=== PATIENT | male | born 1935 | race African-American/Black ===

== ENCOUNTER 2018-06-21 15:12 | Inpatient (IN) | payer MEDICARE, OTHER ==
[~2018-06-21] VITALS: Ht 182.9 cm; Wt 110.7 kg
--- NOTE | 2018-06-21 15:36 | PHYS DOC ---
Past Medical History Past Medical History: Hypertension Additional Past Medical Histor: hyperlipidemia, DVT (BRUNO LINDSEY APRN) Adult General HPI HPI 82-year-old male presents to ER via EMS for complaints of right side chest pressure. Patient states around 12 PM while working in his garden he developed dizziness when he stood up and had right-sided chest pressure. Patient states he went inside and rested and with any exertion he would get increased right sided chest pressure. Patient reports he had been feeling okay all morning and then started having intermittent dizziness episodes with position changes and walking. Patient states he took 2 Tylenol 325 mg with onset of chest pressure. Patient reports he fell some shortness of air denies cough. Patient reports appetite has been normal limits denies any nausea or vomiting. Patient denies fever or urinary sxs. Pt reports rt LE chronic swelling- no acute changes. She reports pain he is experiencing and dizziness is similar to when he had a DVT in the past. Patient denies recent illness or travel. Pt is former smoker quit in the 80s. 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 (BRUNO LINDSEY APRN) Review of Systems Review of Systems Constitutional: Denies fever or chills [] Eyes: Denies change in visual acuity, redness, or eye pain [] HENT: Denies nasal congestion or sore throat [] Respiratory: Denies cough. Reports SOA w/increased chest tightness Cardiovascular: Rt side chest tightness GI: Denies abdominal pain, nausea, vomiting, bloody stools or diarrhea [] : Denies dysuria or hematuria [] Musculoskeletal: Denies back pain or joint pain [] Integument: Denies rash or skin lesions [] Neurologic: Denies headache, focal weakness or sensory changes. Reports intermittent dizziness Endocrine: Denies polyuria or polydipsia [] All other systems were reviewed and found to be within normal limits, except as documented in this note. (BRUNO LINDSEY APRN) Current Medications Current Medications Current Medications Medications (Trade) Dose Ordered Sig/Eugenio Start Time Stop Time Status Last Admin Dose Admin Aspirin (Children'S Aspirin) 324 mg 1X ONCE 06/21/18 16:00 06/21/18 16:25 DC 06/21/18 16:02 324 MG (MASOUD ROBLERO MD) Physical Exam Physical Exam Constitutional: Well developed, well nourished, no acute distress, non-toxic appearance. Clear speech HENT: Normocephalic, atraumatic, bilateral external ears normal, oropharynx moist, no oral exudates, nose normal. [] Eyes: PERRLA, conjunctiva normal, no discharge. [] Neck: Normal range of motion, no tenderness, supple, no stridor. [] Cardiovascular:Heart rate regular rhythm, no murmur [] Lungs & Thorax: Bilateral breath sounds clear to auscultation [] Abdomen: Bowel sounds normal, soft, no tenderness, no masses, no pulsatile rosa s. [] Skin: Warm, dry, no erythema, no rash. [] Back: No tenderness, no CVA tenderness. [] Extremities: No tenderness, no cyanosis, no clubbing, ROM intact, no edema. [] Neurologic: Alert and oriented X 3, normal motor function, normal sensory function, no focal deficits noted. [] Psychologic: Affect normal, judgement normal, mood normal. [] (REFFITT,BRUNO Guerrero APRN) Current Patient Data Vital Signs Vital Signs Date Time Temp Pulse Resp B/P (MAP) Pulse Ox O2 Delivery O2 Flow Rate FiO2 06/21/18 16:21 80 19 132/72 (92) 99 Nasal Cannula 2.0 06/21/18 15:25 98.1 98.1 (MASOUD ROBLERO MD) Lab Values Laboratory Tests Test 06/21/18 15:40 White Blood Count 7.9 x10^3/uL (4.0-11.0) Red Blood Count 3.95 x10^6/uL (4.30-5.70) L Hemoglobin 12.3 g/dL (13.0-17.5) L Hematocrit 36.1 % (39.0-53.0) L Mean Corpuscular Volume 91 fL (79-100) Mean Corpuscular Hemoglobin 31 pg (25-35) Mean Corpuscular Hemoglobin Concent 34 g/dL (31-37) Red Cell Distribution Width 13.8 % (11.5-14.5) Platelet Count 153 x10^3/uL (140-400) Neutrophils (%) (Auto) 76 % (31-73) H Lymphocytes (%) (Auto) 13 % (24-48) L Monocytes (%) (Auto) 8 % (0-9) Eosinophils (%) (Auto) 3 % (0-3) Basophils (%) (Auto) 0 % (0-3) Neutrophils # (Auto) 6.0 x10^3uL (1.8-7.7) Lymphocytes # (Auto) 1.0 x10^3/uL (1.0-4.8) Monocytes # (Auto) 0.6 x10^3/uL (0.0-1.1) Eosinophils # (Auto) 0.2 x10^3/uL (0.0-0.7) Basophils # (Auto) 0.0 x10^3/uL (0.0-0.2) D-Dimer (Mindy) 19.67 ug/mlFEU (0.00-0.50) H Sodium Level 142 mmol/L (136-145) Potassium Level 5.0 mmol/L (3.5-5.1) Chloride Level 105 mmol/L (98-107) Carbon Dioxide Level 24 mmol/L (21-32) Anion Gap 13 (6-14) Blood Urea Nitrogen 27 mg/dL (8-26) H Creatinine 2.0 mg/dL (0.7-1.3) H Estimated GFR (Cockcroft-Gault) 39.1 BUN/Creatinine Ratio 14 (6-20) Glucose Level 206 mg/dL (70-99) H Calcium Level 9.0 mg/dL (8.5-10.1) Magnesium Level 1.7 mg/dL (1.8-2.4) L Total Bilirubin 0.7 mg/dL (0.2-1.0) Aspartate Amino Transferase (AST) 29 U/L (15-37) Alanine Aminotransferase (ALT) 36 U/L (16-63) Alkaline Phosphatase 47 U/L (46-116) Troponin I Quantitative 0.156 ng/mL (0.000-0.055) HQ-Gvi-F-Type Natriuretic Peptide 77 pg/mL (0-449) Total Protein 6.6 g/dL (6.4-8.2) Albumin 3.5 g/dL (3.4-5.0) Albumin/Globulin Ratio 1.1 (1.0-1.7) Thyroid Stimulating Hormone (TSH) 2.365 uIU/mL (0.358-3.74) Laboratory Tests 06/21/18 15:40 Laboratory Tests 06/21/18 15:40 (MASOUD ROBLERO MD) Lab Values Laboratory Tests Test 06/21/18 15:40 White Blood Count 7.9 x10^3/uL (4.0-11.0) Red Blood Count 3.95 x10^6/uL (4.30-5.70) L Hemoglobin 12.3 g/dL (13.0-17.5) L Hematocrit 36.1 % (39.0-53.0) L Mean Corpuscular Volume 91 fL (79-100) Mean Corpuscular Hemoglobin 31 pg (25-35) Mean Corpuscular Hemoglobin Concent 34 g/dL (31-37) Red Cell Distribution Width 13.8 % (11.5-14.5) Platelet Count 153 x10^3/uL (140-400) Neutrophils (%) (Auto) 76 % (31-73) H Lymphocytes (%) (Auto) 13 % (24-48) L Monocytes (%) (Auto) 8 % (0-9) Eosinophils (%) (Auto) 3 % (0-3) Basophils (%) (Auto) 0 % (0-3) Neutrophils # (Auto) 6.0 x10^3uL (1.8-7.7) Lymphocytes # (Auto) 1.0 x10^3/uL (1.0-4.8) Monocytes # (Auto) 0.6 x10^3/uL (0.0-1.1) Eosinophils # (Auto) 0.2 x10^3/uL (0.0-0.7) Basophils # (Auto) 0.0 x10^3/uL (0.0-0.2) D-Dimer (Mindy) 19.67 ug/mlFEU (0.00-0.50) H Sodium Level 142 mmol/L (136-145) Potassium Level 5.0 mmol/L (3.5-5.1) Chloride Level 105 mmol/L (98-107) Carbon Dioxide Level 24 mmol/L (21-32) Anion Gap 13 (6-14) Blood Urea Nitrogen 27 mg/dL (8-26) H Creatinine 2.0 mg/dL (0.7-1.3) H Estimated GFR (Cockcroft-Gault) 39.1 BUN/Creatinine Ratio 14 (6-20) Glucose Level 206 mg/dL (70-99) H Calcium Level 9.0 mg/dL (8.5-10.1) Magnesium Level 1.7 mg/dL (1.8-2.4) L Total Bilirubin 0.7 mg/dL (0.2-1.0) Aspartate Amino Transferase (AST) 29 U/L (15-37) Alanine Aminotransferase (ALT) 36 U/L (16-63) Alkaline Phosphatase 47 U/L (46-116) Troponin I Quantitative 0.156 ng/mL (0.000-0.055) YN-Ewu-E-Type Natriuretic Peptide 77 pg/mL (0-449) Total Protein 6.6 g/dL (6.4-8.2) Albumin 3.5 g/dL (3.4-5.0) Albumin/Globulin Ratio 1.1 (1.0-1.7) Thyroid Stimulating Hormone (TSH) 2.365 uIU/mL (0.358-3.74) Laboratory Tests 06/21/18 15:40 Laboratory Tests 06/21/18 15:40 (BRUNO LINDSEY APRN) EKG EKG EKG obtained 06/21/18 at [address] Roblero- call placed to cardiology as she had concerns for block. No STEMI rate 85. (BRUNO LINDSEY APRN) Radiology/Procedures Radiology/Procedures PROCEDURE: CHEST AP ONLY Single view chest dated 06/21/2018: Comparison made to 12/02/2005. Clinical Indication: Chest tightness.. Findings: Single upright portable exam of the chest was performed. Heart size and mediastinal contours are within normal limits. There is a vague nodular density at the suprahilar region on the left appears more prominent from the 2006 study. Lungs are otherwise clear. No pleural effusion or pneumothorax. Impression:: 1. No acute radiographic abnormality. 2. Vague nodular density at the suprahilar region on the left appears somewhat more prominent from prior exam. This could be related to artifact or a developing lung nodule. Suggest short-term follow-up PA and lateral exam to ensure stability/resolution Electronically signed by: Jong Garcia MD (06/21/2018 4:40 PM) [facility] DICTATED and SIGNED BY: JONG GARCIA MD DATE: 06/21/18 1640 (BRUNO LINDSEY APRN) Course & Med Decision Making Course & Med Decision Making Pertinent Labs and Imaging studies reviewed. (See chart for details) EKG was obtained and Dr. Roblero had concerns for possible block- cardiology called and she spoke with LALY Kraft with Dr. Gambino who is coming to ER to view EKG. 1605: LALY Kraft cardiology in with pt. Orthostatics were obtained supine 140/76 HR 81 sitting 135/67 HR 96 standing 140/76 HR 90. Pt was evaluated in the ER for complaints of right side chest tightness and intermittent dizziness. Patient had labs, EKG, and chest x-ray obtained while in the ER- DDimer pending. Patient was given 324 mg aspirin. Patient's troponin was elevated at 0.156 and renal function 27/2.0- no prior results in patient's records to compare to. Pt will be admitted to hospitalist services for further monitoring and have serial cardiac enzymes obtained. Consult will be placed for cardiology with admit orders. Patient has remained stable while in the ER- denied any CP/SOA and VS were stable. (BRUNO LINDSEY APRN) Course & Med Decision Making This patient was seen by an MAIA. I did not see or treat the patient unless otherwise specified. (MASOUD ROBLERO MD) Dragon Disclaimer Dragon Disclaimer This electronic medical record was generated, in whole or in part, using a voice recognition dictation system. (BRUNO LINDSEY APRN) Departure Departure Impression: Primary Impression: Chest pain Additional Impressions: Dizziness Elevated troponin Disposition: ADMITTED INPATIENT Condition: STABLE Referrals: UNKNOWN PCP NAME (PCP) Problem Qualifiers BRUNO LINDSEY APRN June 21, 2018 15:36 MASOUD ROBLERO MD June 22, 2018 14:01
--- NOTE | 2018-06-21 15:43 | EKG ---
[facility] [address] [place] [id number] Test Date: 2018-06-21 Test Time: 15:36:33 Pat Name: RAMESH PARRY Department: Room: Gender: M Animal Care Attendant: : 1935 Requested By: BRUNO LINDSEY Order Number: [id number] Reading MD: Gustavo Gambino MD Measurements Intervals [place] Rate: 85 P: MO: QRS: 2 QRSD: 76 T: 12 QT: 388 QTc: 462 Interpretive Statements SR 1st degree avb Electronically Signed On 06-21-2018 18:18:07 CDT by Gustavo Gambino MD
[2018-06-21 15:52] LABS: BASO % 0 % (0-3); EOS # 0.2 x10^3/uL (0.0-0.7); EOS % 3 % (0-3); HEMATOCRIT 36.1 % (39.0-53.0); HEMOGLOBIN 12.3 g/dL (13.0-17.5); LYMPH % 13 % (24-48); MEAN CORPUSCULAR HEMOGLOBIN 31 pg (25-35); MEAN CORPUSCULAR HGB CONC 34 g/dL (31-37); MEAN CORPUSCULAR VOLUME 91 fL (79-100); MONO # 0.6 x10^3/uL (0.0-1.1); MONO % 8 % (0-9); NEUT % 76 % (31-73); PLATELET COUNT 153 x10^3/uL (140-400); RED BLOOD COUNT 3.95 x10^6/uL (4.30-5.70); RED CELL DISTRIBUTION WIDTH 13.8 % (11.5-14.5); WHITE BLOOD COUNT 7.9 x10^3/uL (4.0-11.0)
[2018-06-21] MEDS ORDERED: ASPIRIN CHEWABLE 81 MG TABLET. PO ONE (16:00)
[2018-06-21 16:16] LABS: GFR 39.1
[2018-06-21 16:22] LABS: ALBUMIN 3.5 g/dL (3.4-5.0); ALBUMIN/GLOBULIN RATIO 1.1 (1.0-1.7); MAGNESIUM 1.7 mg/dL (1.8-2.4); TOTAL BILIRUBIN 0.7 mg/dL (0.2-1.0); TOTAL PROTEIN 6.6 g/dL (6.4-8.2)
--- NOTE | 2018-06-21 16:43 | RAD ---
Single view chest dated 06/21/2018: Comparison made to 12/02/2005. Clinical Indication: Chest tightness.. Findings: Single upright portable exam of the chest was performed. Heart size and mediastinal contours are within normal limits. There is a vague nodular density at the suprahilar region on the left appears more prominent from the 2006 study. Lungs are otherwise clear. No pleural effusion or pneumothorax. Impression:: 1. No acute radiographic abnormality. 2. Vague nodular density at the suprahilar region on the left appears somewhat more prominent from prior exam. This could be related to artifact or a developing lung nodule. Suggest short-term follow-up PA and lateral exam to ensure stability/resolution Electronically signed by: Jong Garcia MD (06/21/2018 4:40 PM) [facility]
[2018-06-21] MEDS ORDERED: MAGNESIUM OXIDE 400 MG TABLET PO ONE (17:00)
[2018-06-21] MEDS ORDERED: LABETALOL 20 MG/4 ML DISP.SYRIN. IVP PRN (17:00)
--- NOTE | 2018-06-21 17:03 | PDOC2 ---
JOSEPH VILLALPANDO [employer] 06/21/18 1703: CARDIAC CONSULT DATE OF CONSULT Date of Consult DATE: 06/21/18 TIME: 16:43 REASON FOR CONSULT Reason for Consult: Chest pain REFERRING PHYSICIAN Referring Physician: Jose SOURCE Source: Chart review, Patient HISTORY OF PRESENT ILLNESS HISTORY OF PRESENT ILLNESS This is a pleasant 82 yo male admitted for complains of chest pain and shortness of breath. Reports that in the last 2 weeks he has been progressively getting more SOA. He went to his PCP yesterday and told him that it must be worsening allergies with his underlying COPD as well. He has been noted that his SOA has increased significantly affecting his activity tolerance. This morning he has right chest pressure for about 1 hr and 15 min and actually took tylenol and finally it went away. He did tried to walk during that time and felt diaphoretic. No dizziness, palpitations, nausea. Denies any past CAD, long distance travel but did have DVT to his RLE 2-3 yrs ago. No hx of arrhythmias. He lives with his spouse and has been complaint with his medications. His last stress test was remote. I was called by ED due to CP and also possible heart block which at this point it is first degree AV block and no blocks or pauses per telemetry and pt has no frequent dizziness or recent syncopal spells. At the time he was diaphoretic he did not check his BP nor his BG as he takes insulin. PAST MEDICAL HISTORY Cardiovascular: HTN, Hyperlipidemia Pulmonary: COPD, Other (BRENDA with CPAP) CENTRAL NERVOUS SYSTEM: Periperal neuropathy GI: GERD Heme/Onc: Other (DVT to LE 2-3 yrs ago) Hepatobiliary: No pertinent hx Psych: No pertinent hx Musculoskeletal: Osteoarthritis Rheumatologic: Gout Infectious disease: No pertinent hx ENT: Allergic Rhinitis, Other (cataract) Renal/: Chronic renal insuff, Benign prostatic enlarg. Endocrine: Diabetes (2 insulin dependent) Dermatology: No pertinent hx PAST SURGICAL HISTORY Past Surgical History: No pertinent history FAMILY HISTORY Family History: Diabetes SOCIAL HISTORY Smoke: Quit (remotely) ALCOHOL: none Drugs: None Lives: with Family CURRENT MEDICATIONS CURRENT MEDICATIONS Current Medications Medications (Trade) Dose Ordered Sig/Eugenio Route PRN Reason Start Time Stop Time Status Last Admin Dose Admin Aspirin (Children'S Aspirin) 324 mg 1X ONCE PO 06/21/18 16:00 06/21/18 16:25 DC 06/21/18 16:02 ALLERGIES ALLERGIES: Coded Allergies: rosiglitazone (Verified Allergy, Mild, Unknown, 06/21/18) ROS Review of System 14 point ROS evaluated with pertinent positives noted per HPI PHYSICAL EXAM General: Alert, Oriented X3, Cooperative, No acute distress HEENT: Atraumatic, Mucous membr. moist/pink Lungs: Clear to auscultation, Normal air movement Heart: Regular rate (SR with first degree AV block. ), Other (2/6 systolic murmur to LLS border) Abdomen: Soft, No tenderness Extremities: No cyanosis, Other (2+ bilateral LE pitting edema) Skin: No breakdown, No significant lesion Neuro: Normal speech, Sensation intact Psych/Mental Status: Mental status NL, Mood NL MUSCULOSKELETAL: Osteoarthritic changes both hands VITALS VITALS Vital Signs Date Time Temp Pulse Resp B/P (MAP) Pulse Ox O2 Delivery O2 Flow Rate FiO2 06/21/18 15:25 98.1 90 18 140/90 (107) 98 Nasal Cannula 2.0 98.1 LABS Lab: Laboratory Tests Test 06/21/18 15:40 White Blood Count 7.9 x10^3/uL (4.0-11.0) Red Blood Count 3.95 x10^6/uL (4.30-5.70) Hemoglobin 12.3 g/dL (13.0-17.5) Hematocrit 36.1 % (39.0-53.0) Mean Corpuscular Volume 91 fL (79-100) Mean Corpuscular Hemoglobin 31 pg (25-35) Mean Corpuscular Hemoglobin Concent 34 g/dL (31-37) Red Cell Distribution Width 13.8 % (11.5-14.5) Platelet Count 153 x10^3/uL (140-400) Neutrophils (%) (Auto) 76 % (31-73) Lymphocytes (%) (Auto) 13 % (24-48) Monocytes (%) (Auto) 8 % (0-9) Eosinophils (%) (Auto) 3 % (0-3) Basophils (%) (Auto) 0 % (0-3) Neutrophils # (Auto) 6.0 x10^3uL (1.8-7.7) Lymphocytes # (Auto) 1.0 x10^3/uL (1.0-4.8) Monocytes # (Auto) 0.6 x10^3/uL (0.0-1.1) Eosinophils # (Auto) 0.2 x10^3/uL (0.0-0.7) Basophils # (Auto) 0.0 x10^3/uL (0.0-0.2) Sodium Level 142 mmol/L (136-145) Potassium Level 5.0 mmol/L (3.5-5.1) Chloride Level 105 mmol/L (98-107) Carbon Dioxide Level 24 mmol/L (21-32) Anion Gap 13 (6-14) Blood Urea Nitrogen 27 mg/dL (8-26) Creatinine 2.0 mg/dL (0.7-1.3) Estimated GFR (Cockcroft-Gault) 39.1 BUN/Creatinine Ratio 14 (6-20) Glucose Level 206 mg/dL (70-99) Calcium Level 9.0 mg/dL (8.5-10.1) Magnesium Level 1.7 mg/dL (1.8-2.4) Total Bilirubin 0.7 mg/dL (0.2-1.0) Aspartate Amino Transf (AST/SGOT) 29 U/L (15-37) Alanine Aminotransferase (ALT/SGPT) 36 U/L (16-63) Alkaline Phosphatase 47 U/L (46-116) Troponin I Quantitative 0.156 ng/mL (0.000-0.055) Total Protein 6.6 g/dL (6.4-8.2) Albumin 3.5 g/dL (3.4-5.0) Albumin/Globulin Ratio 1.1 (1.0-1.7) ASSESSMENT/PLAN ASSESSMENT/PLAN 1. NSTEMI: initial trop at 0.156 in the setting of EMERALD, mild anteroseptal changes to EKG otherwise SR with first degree AV block 2. Acute CHF with possible diastolic dysfunction 3. COPD/BRENDA: uses CPAP at home. 4. HTN: controlled 5. DM2: insulin dependent 6. HLP 7. EMERALD on CKD3: by baseline 8. suspect PAD in addition to DPN. Recommendations 1. Lasix. ASA. Lovenox x1. Arterial doppler to bilateral LE 2. TTE, TSH, lipids. 3. Labetolol IV PRN. Hold ACEi/ARB. 4. Ischemic workup pending renal function and pending tests. SHERMAN HUBBARD MD 06/21/18 1818: CARDIAC CONSULT ASSESSMENT/PLAN ASSESSMENT/PLAN Pt. seen and examined. Agree with above COLLECTIONS AND ARCHIVES DIRECTOR note. Plan for further evaluation based on overnight labs and testing thanks JOSEPH VILLALPANDO APRN June 21, 2018 17:03 SHERMAN HUBBARD MD June 21, 2018 18:18
[2018-06-21] MEDS ORDERED: IV NORMAL SALINE 500ML BAG 500 ML IV ONE (18:15)
[2018-06-21 19:15] VITALS: BP 112/66
--- NOTE | 2018-06-21 20:58 | PDOC1 ---
History and Physical Date of Admission Date of Admission DATE: 06/21/18 TIME: 20:50 Source Source: Chart review, Patient History of Present Illness History of Present Illness Mr. Dietz, is a 82-year-old male admit with sudden on set of right side chest pressure. while active, was dizzy, then sudden pressure to right chest that resolved before I saw him in the ER. the exertion seemed to exacerbate the pain. some dyspena, has not been ill, has no cough he felt nausea and sweaty, no vomitning, and it was a pressure sensation to his right chest. he had been seen by CV team, and US LE arteries was being done, hx DVT, PE Past Medical History Cardiovascular: HTN, Hyperlipidemia Pulmonary: COPD, Other (BRENDA with CPAP) CENTRAL NERVOUS SYSTEM: Periperal neuropathy GI: GERD Heme/Onc: Other (DVT to LE 2-3 yrs ago) Hepatobiliary: No pertinent hx Psych: No pertinent hx Musculoskeletal: Osteoarthritis Rheumatologic: Gout Infectious disease: No pertinent hx ENT: Allergic Rhinitis, Other (cataract) Renal/: Chronic renal insuff, Benign prostatic enlarg. Endocrine: Diabetes (2 insulin dependent) Dermatology: No pertinent hx Past Surgical History Past Surgical History: No pertinent history Family History Family History: Diabetes Social History Smoke: No ALCOHOL: none Drugs: None Current Problem List Problem List Problems Medical Problems: (1) Chest pain Status: Acute (2) Dizziness Status: Acute (3) Elevated troponin Status: Acute Current Medications Current Medications Current Medications Aspirin (Children'S Aspirin) 324 mg 1X ONCE PO Last administered on 06/21/18at 16:02; Start 06/21/18 at 16:00; Stop 06/21/18 at 16:25; Status DC Enoxaparin Sodium (Lovenox 100mg Syringe) 100 mg 1X ONCE SQ Last administered on 06/21/18at 17:36; Start 06/21/18 at 17:00; Stop 06/21/18 at 17:07; Status DC Magnesium Oxide (Magnesium Oxide) 800 mg 1X ONCE PO Last administered on 06/21/18at 17:34; Start 06/21/18 at 17:00; Stop 06/21/18 at 17:07; Status DC Labetalol HCl (Normodyne Iv Push) 20 mg PRN Q2HR PRN IVP HYPERTENSION, SEE COMMENTS; Start 06/21/18 at 17:00 Sodium Chloride 500 ml @ 500 mls/hr 1X ONCE IV Last administered on 06/21/18at 18:35; Start 06/21/18 at 18:15; Stop 06/21/18 at 19:14; Status DC Allergies Allergies: Coded Allergies: rosiglitazone (Verified Allergy, Mild, Unknown, 06/21/18) ROS General: No: Chills, Night Sweats, Fatigue, Malaise, Appetite, Other PSYCHOLOGICAL ROS: YES: Sleep disturbances; No: Anxiety, Behavioral Disorder, Concentration difficultie, Decreased rocco meryl, Depression, Disorientation, Hallucinations, Hostility, Irritablity, Memory difficulties, Mood Swings, Obsessive thoughts, Physical abuse, Sexual abuse, Suicidal ideation, Other Eyes: No Blurry vision, No Decreased vision, No Double vision, No Dry eyes, No Excessive tearing, No Eye Pain, No Itchy Eyes, No Loss of vision, No Photophobia, No Scotomata, No Uses contacts, No Uses glasses, No Other HEENT: No: Heacaches, Visual Changes, Hearing change, Nasal congestion, Nasal discharge, Oral lesions, Sinus pain, Sore Throat, Epistaxis, Sneezing, Snoring, Tinnitus, Vertigo, Vocal changes, Other Respiratory: No: Cough, Hemoptysis, Orthopnea, Pleuritic Pain, Shortness of breath, SOB with excertion, Sputum Changes, Stridor, Tachypnea, Wheezing, Other Cardiovascular: yes Chest Pain Gastrointestinal: No Nausea, No Vomiting, No Abdominal Pain, No Diarrhea, No Constipation, No Melena, No Hematochezia, No Other Genitourinary: No Dysuria, No Frequency, No Incontinence, No Hematuria, No Retention, No Discharge, No Urgency, No Pain, No Flank Pain, No Other, No , No , No , No , No , No , No Musculoskeletal: Yes Joint Stiffness; No Gait Disturbance, No Joint Pain, No Joint Swelling, No Muscle Pain, No Muscular Weakness, No Pain In:, No Swelling In:, No Other Neurological: No Behavorial Changes, No Bowel/Bladder ControlChng, No Con fusion, No Dizziness, No Gait Disturbance, No Headaches, No Impaired Coord/balance, No Memory Loss, No Numbness/Tingling, No Seizures, No Speech Problems, No Tremors, No Visual Changes, No Weakness, No Other Skin: Yes Dry Skin Physical Exam General: Alert, Oriented X3, Cooperative, No acute distress HEENT: Atraumatic, PERRLA Lungs: Clear to auscultation Heart: S1S2, no murmurs Abdomen: Normal bowel sounds, Soft Extremities: No clubbing, No cyanosis, No edema, Normal pulses Neuro: Normal speech, Sensation intact, Cranial nerves 3-12 NL Psych/Mental Status: Mental status NL Vitals Vitals Vital Signs Date Time Temp Pulse Resp B/P (MAP) Pulse Ox O2 Delivery O2 Flow Rate FiO2 06/21/18 19:15 97.6 77 18 112/66 (81) 95 Room Air 97.6 06/21/18 18:21 2.0 Labs Labs Laboratory Tests Test 06/21/18 15:40 06/21/18 20:20 White Blood Count 7.9 x10^3/uL (4.0-11.0) Red Blood Count 3.95 x10^6/uL (4.30-5.70) Hemoglobin 12.3 g/dL (13.0-17.5) Hematocrit 36.1 % (39.0-53.0) Mean Corpuscular Volume 91 fL (79-100) Mean Corpuscular Hemoglobin 31 pg (25-35) Mean Corpuscular Hemoglobin Concent 34 g/dL (31-37) Red Cell Distribution Width 13.8 % (11.5-14.5) Platelet Count 153 x10^3/uL (140-400) Neutrophils (%) (Auto) 76 % (31-73) Lymphocytes (%) (Auto) 13 % (24-48) Monocytes (%) (Auto) 8 % (0-9) Eosinophils (%) (Auto) 3 % (0-3) Basophils (%) (Auto) 0 % (0-3) Neutrophils # (Auto) 6.0 x10^3uL (1.8-7.7) Lymphocytes # (Auto) 1.0 x10^3/uL (1.0-4.8) Monocytes # (Auto) 0.6 x10^3/uL (0.0-1.1) Eosinophils # (Auto) 0.2 x10^3/uL (0.0-0.7) Basophils # (Auto) 0.0 x10^3/uL (0.0-0.2) D-Dimer (Mindy) 19.67 ug/mlFEU (0.00-0.50) Sodium Level 142 mmol/L (136-145) Potassium Level 5.0 mmol/L (3.5-5.1) Chloride Level 105 mmol/L (98-107) Carbon Dioxide Level 24 mmol/L (21-32) Anion Gap 13 (6-14) Blood Urea Nitrogen 27 mg/dL (8-26) Creatinine 2.0 mg/dL (0.7-1.3) Estimated GFR (Cockcroft-Gault) 39.1 BUN/Creatinine Ratio 14 (6-20) Glucose Level 206 mg/dL (70-99) Calcium Level 9.0 mg/dL (8.5-10.1) Magnesium Level 1.7 mg/dL (1.8-2.4) Total Bilirubin 0.7 mg/dL (0.2-1.0) Aspartate Amino Transf (AST/SGOT) 29 U/L (15-37) Alanine Aminotransferase (ALT/SGPT) 36 U/L (16-63) Alkaline Phosphatase 47 U/L (46-116) Troponin I Quantitative 0.156 ng/mL (0.000-0.055) 0.433 ng/mL (0.000-0.055) VA-Mro-V-Type Natriuretic Peptide 77 pg/mL (0-449) Total Protein 6.6 g/dL (6.4-8.2) Albumin 3.5 g/dL (3.4-5.0) Albumin/Globulin Ratio 1.1 (1.0-1.7) Thyroid Stimulating Hormone (TSH) 2.365 uIU/mL (0.358-3.74) Laboratory Tests Test 06/21/18 15:40 06/21/18 20:20 White Blood Count 7.9 x10^3/uL (4.0-11.0) Red Blood Count 3.95 x10^6/uL (4.30-5.70) Hemoglobin 12.3 g/dL (13.0-17.5) Hematocrit 36.1 % (39.0-53.0) Mean Corpuscular Volume 91 fL (79-100) Mean Corpuscular Hemoglobin 31 pg (25-35) Mean Corpuscular Hemoglobin Concent 34 g/dL (31-37) Red Cell Distribution Width 13.8 % (11.5-14.5) Platelet Count 153 x10^3/uL (140-400) Neutrophils (%) (Auto) 76 % (31-73) Lymphocytes (%) (Auto) 13 % (24-48) Monocytes (%) (Auto) 8 % (0-9) Eosinophils (%) (Auto) 3 % (0-3) Basophils (%) (Auto) 0 % (0-3) Neutrophils # (Auto) 6.0 x10^3uL (1.8-7.7) Lymphocytes # (Auto) 1.0 x10^3/uL (1.0-4.8) Monocytes # (Auto) 0.6 x10^3/uL (0.0-1.1) Eosinophils # (Auto) 0.2 x10^3/uL (0.0-0.7) Basophils # (Auto) 0.0 x10^3/uL (0.0-0.2) D-Dimer (Mindy) 19.67 ug/mlFEU (0.00-0.50) Sodium Level 142 mmol/L (136-145) Potassium Level 5.0 mmol/L (3.5-5.1) Chloride Level 105 mmol/L (98-107) Carbon Dioxide Level 24 mmol/L (21-32) Anion Gap 13 (6-14) Blood Urea Nitrogen 27 mg/dL (8-26) Creatinine 2.0 mg/dL (0.7-1.3) Estimated GFR (Cockcroft-Gault) 39.1 BUN/Creatinine Ratio 14 (6-20) Glucose Level 206 mg/dL (70-99) Calcium Level 9.0 mg/dL (8.5-10.1) Magnesium Level 1.7 mg/dL (1.8-2.4) Total Bilirubin 0.7 mg/dL (0.2-1.0) Aspartate Amino Transf (AST/SGOT) 29 U/L (15-37) Alanine Aminotransferase (ALT/SGPT) 36 U/L (16-63) Alkaline Phosphatase 47 U/L (46-116) Troponin I Quantitative 0.156 ng/mL (0.000-0.055) 0.433 ng/mL (0.000-0.055) SQ-Vvm-W-Type Natriuretic Peptide 77 pg/mL (0-449) Total Protein 6.6 g/dL (6.4-8.2) Albumin 3.5 g/dL (3.4-5.0) Albumin/Globulin Ratio 1.1 (1.0-1.7) Thyroid Stimulating Hormone (TSH) 2.365 uIU/mL (0.358-3.74) VTE Prophylaxis Ordered VTE Prophylaxis Devices: No VTE Pharmacological Prophylaxi: Yes Assessment/Plan Assessment/Plan chest pain, unstable angina, troponin elevation may be Type 2 NSTEMI, demand Acute CHF with possible diastolic dysfunction hx arteria thrombus, leg US done CKD 3-4 obesity, BMI 32 brenda htn CV workup started for above GONZALEZ ORDOÑEZ MD June 21, 2018 20:58
[2018-06-21] MEDS ORDERED: DEXTROSE 50% 25 GM / 50ML DISP.SYRIN. IV PRN (21:00)
[2018-06-21] MEDS: INSULIN LISPRO 300 UNITS/3 ML INSULN.PEN. SQ SCH (21:00)
[2018-06-21] MEDS: INSULIN GLARGINE 300 UNITS/3 ML INSULN.PEN. SQ SCH (23:19)
[2018-06-21 23:27] VITALS: BP 110/60
[2018-06-21 23:28] VITALS: BP_SYST 113; BP_SYST 118; BP_DIAS 52; BP_DIAS 59
--- NOTE | 2018-06-22 00:59 | NUR ---
Paged Dr Purcell regarding D-Dimer 19.67, Trop increase of 0.156, 0.433,0.469. Patient denies CP, although Mr claims while doing his orthostatic BP as ordered made him SOB. RN did not see VQ scan ordered, or consult for Pulmonary. BLE doppler performed in ED. result not visible at this time. Paged Dr Purcell.
[2018-06-22] MEDS ORDERED: HEPARIN for IV BOLUS 10,000 UNIT/10 ML VIAL. IV PRN ×4 (02:30→11:16)
[2018-06-22] MEDS ORDERED: HEPARIN 25,000UTS/500ML PREMIX 500 ML IV PRN (02:30)
[2018-06-22 03:11] VITALS: BP 115/61
--- NOTE | 2018-06-22 03:42 | NUR ---
Veronica performed post void residual 45ml / 74ml with bladder scanner. Post void to urinal
[2018-06-22 04:06] LABS: CALCIUM 8.4 mg/dL (8.5-10.1); GFR 39.1; POTASSIUM 4.5 mmol/L (3.5-5.1)
[2018-06-22 04:11] LABS: MAGNESIUM 1.8 mg/dL (1.8-2.4)
--- NOTE | 2018-06-22 06:05 | RAD ---
MR#: [id number] Date of Study: 06/21/2018 Ordering Physician: JOSEPH VILLALPANDO, Referring Physician: GONZALEZ ORDOÑEZ Tech: Galilea Henderson BS, RTR, RDMS, RVT APPROVED REPORT Patient Location: IN-PATIENT Indications PAD Risk Factors Hypertension Diabetes VELOCITY AND DOPPLER WAVEFORM ANALYSIS RIGHT cm/secWaveformSeverity LEFT cm/secWaveform Severity dCFA 161.0BiphasicdCFA 123.0Biphasic Prof Fem Art. 123.0BiphasicProf Fem Art. 59.0Biphasic Fem Art Prox. 98.0BiphasicFem Art Prox. 95.0Biphasic Fem Art Mid. 78.0BiphasicFem Art Mid. 51.0Biphasic Fem Art Dist. 79.0BiphasicFem Art Dist. 31.0Biphasic Pop Art(Fossa) 55.0BiphasicPop Art(AK) 50.0Biphasic ANIMAL CARE SUPERVISOR Prox. 31.0BiphasicPTA Prox. 32.0Biphasic ANIMAL CARE SUPERVISOR Dist. 60.0BiphasicPTA Dist. 31.0Biphasic Per Art Mid. 47.0BiphasicPer Art Mid. 22.0Monophasic JENNIFER Prox. 47.0BiphasicATA Prox. 21.0Biphasic DPA 35BiphasicDPA 11Monophasic Findings Grayscale images of the right lower extremity arterial vessels reveals mild diffuse plaque. Spectral waveforms are grossly within normal limits and mostly triphasic and biphasic throughout the arterial tree. There is three-vessel runoff below the knee. No focal stenosis identified. On the left there are mostly biphasic waveforms in the common femoral and proximal superficial femora l artery. There appears to be diffuse disease involving the mid to distal superficial femoral artery and popliteal arteries. Although there is three-vessel runoff below the knee the velocities are signi ficantly diminished suggestive of more proximal disease. Critical Notification Critical Value: No <Conclusion> 1. No significant right lower extremity arterial disease 2. Probable diffuse greater than 50% stenosis involving the distal SFA, popliteal junction. Signed by : Gustavo Gambino, Electronically Approved : 06/22/2018 06:04:53
--- NOTE | 2018-06-22 06:07 | RAD ---
MR#: [id number] Date of Study: 06/21/2018 Ordering Physician: JOSEPH VILLALPANDO, Referring Physician: GONZALEZ ORDOÑEZ Tech: Galilea Henderson BS, RTR, RDMS, RVT APPROVED REPORT Right Lower Extremity Venous Study for DVT Patient Location: IN-PATIENT Indications Lower Extremity Edema: Past History DVT : Pulmonary Embolism Vein Imaging (Right) CFV (R): Compressible, Spontaneous SFJ (R): Compressible, Spontaneous FEM (R): Partially Compressible POP (R): Partially Compressible DFV (R): Compressible, Spontaneous PTV (R): Compressible Findings Grayscale images of the right common femoral, proximal superficial femoral, mid superficial femoral a nd profunda femoris veins reveals normal color Doppler signals and spectral waveforms with appropriat e compressibility. There appears to be a subacute clot noted in the distal superficial femoral vein a nd popliteal vein. The popliteal vein is noncompressible. The below-knee veins were not well visualiz ed. Critical Notification Critical Value: No <Conclusion> 1. 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 Signed by : Gustavo Gambino, Electronically Approved : 06/22/2018 06:06:59
[2018-06-22 07:00] VITALS: BP 115/56
[2018-06-22] MEDS ORDERED: ASPIRIN 325 MG TABLET PO SCH (08:00)
[2018-06-22] MEDS: CARVEDILOL 3.125 MG TABLET. PO SCH ×2 (08:20→17:33)
[2018-06-22] MEDS: INSULIN LISPRO 300 UNITS/3 ML INSULN.PEN. SQ SCH ×4 (08:26→21:00)
--- NOTE | 2018-06-22 09:02 | NUR ---
Pt's morning blood sugar reading 173. Pt states he takes 20 units at home with meals. This RN administered 20 units per patient request.
[2018-06-22 10:23] LABS: HEMOGLOBIN A1C 8.6 % (4.8-5.6)
--- NOTE | 2018-06-22 10:47 | PDOC ---
PROGRESS NOTES History of Present Illness History of Present Illness Assessment/Plan Assessment/Plan chest pain, unstable angina, troponin elevation may be Type 2 NSTEMI, demand Acute CHF with possible diastolic dysfunction hx arteria thrombus, leg US done CKD 3-4 obesity, BMI 32 irasema htn nodular density at the suprahilar region on the left appears somewhat more prominent from prior exam. This could be related to artifact or a developing lung nodule. Suggest short-term follow-up PA and lateral exam to ensure stability/resolution Bilateral unmatched perfusion defects, worse on the right, compatible with pulmonary emboli. plan cardiology consult CV workup cvc admit PULM CONSULT ELIQUIS 10MG PO BID Vitals Vitals Vital Signs Date Time Temp Pulse Resp B/P (MAP) Pulse Ox O2 Delivery O2 Flow Rate FiO2 06/22/18 08:20 67 115/57 06/22/18 08:00 Nasal Cannula 2.0 06/22/18 07:00 97.6 18 96 97.6 Physical Exam General: Alert, Oriented X3, Cooperative, No acute distress Heart: Regular rate (SR with first degree AV block. ), Normal S1, Other (2/6 sy stolic murmur to LLS border) Lungs: Clear Abdomen: Normal bowel sounds, Soft Extremities: No clubbing, No cyanosis, No edema, Normal pulses Skin: No breakdown, No significant lesion Labs LABS Ventilation/perfusion lung scan, 06/22/2018: HISTORY: Dyspnea The ventilation study was performed utilizing 19.8 mCi of xenon-133. Activity in the lungs is symmetric. There is good washout of xenon from both lungs. Perfusion imaging was performed utilizing 5.5 mCi of technetium 99m MAA. There are multiple unmatched bilateral pulmonary perfusion defects. The largest of these lies in the right upper chest and involves the majority of the right upper lobe. There are smaller peripheral perfusion defects on the left. IMPRESSION: Bilateral unmatched perfusion defects, worse on the right, compatible with pulmonary emboli. Note: The findings were called to the patient's nurse on the floor at 11:32 AM on 06/22/2018. Electronically signed by: Aamir Giordano MD (06/22/2018 11:32 AM) [facility] Single view chest dated 06/21/2018: Comparison made to 12/02/2005. Clinical Indication: Chest tightness.. Findings: Single upright portable exam of the chest was performed. Heart size and mediastinal contours are within normal limits. There is a vague nodular density at the suprahilar region on the left appears more prominent from the 2006 study. Lungs are otherwise clear. No pleural effusion or pneumothorax. Impression:: 1. No acute radiographic abnormality. 2. Vague nodular density at the suprahilar region on the left appears somewhat more prominent from prior exam. This could be related to artifact or a developing lung nodule. Suggest short-term follow-up PA and lateral exam to ensure stability/resolution Electronically signed by: Jong Garcia MD (06/21/2018 4:40 PM) [id number] DICTATED and SIGNED BY: JONG GARCIA MD DATE: 06/21/18 1640 Laboratory Tests Test 06/21/18 15:40 06/21/18 20:20 06/21/18 22:31 06/21/18 23:10 White Blood Count 7.9 x10^3/uL (4.0-11.0) Red Blood Count 3.95 x10^6/uL (4.30-5.70) Hemoglobin 12.3 g/dL (13.0-17.5) Hematocrit 36.1 % (39.0-53.0) Mean Corpuscular Volume 91 fL (79-100) Mean Corpuscular Hemoglobin 31 pg (25-35) Mean Corpuscular Hemoglobin Concent 34 g/dL (31-37) Red Cell Distribution Width 13.8 % (11.5-14.5) Platelet Count 153 x10^3/uL (140-400) Neutrophils (%) (Auto) 76 % (31-73) Lymphocytes (%) (Auto) 13 % (24-48) Monocytes (%) (Auto) 8 % (0-9) Eosinophils (%) (Auto) 3 % (0-3) Basophils (%) (Auto) 0 % (0-3) Neutrophils # (Auto) 6.0 x10^3uL (1.8-7.7) Lymphocytes # (Auto) 1.0 x10^3/uL (1.0-4.8) Monocytes # (Auto) 0.6 x10^3/uL (0.0-1.1) Eosinophils # (Auto) 0.2 x10^3/uL (0.0-0.7) Basophils # (Auto) 0.0 x10^3/uL (0.0-0.2) D-Dimer (Mindy) 19.67 ug/mlFEU (0.00-0.50) Sodium Level 142 mmol/L (136-145) Potassium Level 5.0 mmol/L (3.5-5.1) Chloride Level 105 mmol/L (98-107) Carbon Dioxide Level 24 mmol/L (21-32) Anion Gap 13 (6-14) Blood Urea Nitrogen 27 mg/dL (8-26) Creatinine 2.0 mg/dL (0.7-1.3) Estimated GFR (Cockcroft-Gault) 39.1 BUN/Creatinine Ratio 14 (6-20) Glucose Level 206 mg/dL (70-99) Calcium Level 9.0 mg/dL (8.5-10.1) Magnesium Level 1.7 mg/dL (1.8-2.4) Total Bilirubin 0.7 mg/dL (0.2-1.0) Aspartate Amino Transf (AST/SGOT) 29 U/L (15-37) Alanine Aminotransferase (ALT/SGPT) 36 U/L (16-63) Alkaline Phosphatase 47 U/L (46-116) Troponin I Quantitative 0.156 ng/mL (0.000-0.055) 0.433 ng/mL (0.000-0.055) 0.469 ng/mL (0.000-0.055) MN-Gft-E-Type Natriuretic Peptide 77 pg/mL (0-449) Total Protein 6.6 g/dL (6.4-8.2) Albumin 3.5 g/dL (3.4-5.0) Albumin/Globulin Ratio 1.1 (1.0-1.7) Thyroid Stimulating Hormone (TSH) 2.365 uIU/mL (0.358-3.74) Glucose (Fingerstick) 182 mg/dL (70-99) Test 06/22/18 03:15 06/22/18 08:17 06/22/18 09:05 Sodium Level 144 mmol/L (136-145) Potassium Level 4.5 mmol/L (3.5-5.1) Chloride Level 107 mmol/L (98-107) Carbon Dioxide Level 24 mmol/L (21-32) Anion Gap 13 (6-14) Blood Urea Nitrogen 31 mg/dL (8-26) Creatinine 2.0 mg/dL (0.7-1.3) Estimated GFR (Cockcroft-Gault) 39.1 Glucose Level 163 mg/dL (70-99) Hemoglobin A1c 8.6 % (4.8-5.6) Calcium Level 8.4 mg/dL (8.5-10.1) Magnesium Level 1.8 mg/dL (1.8-2.4) Triglycerides Level 134 mg/dL (0-150) Cholesterol Level 104 mg/dL (0-200) LDL Cholesterol, Calculated 46 mg/dL (0-100) VLDL Cholesterol, Calculated 27 mg/dL (0-40) Non-HDL Cholesterol Calculated 73 mg/dL (0-129) HDL Cholesterol 31 mg/dL (40-60) Cholesterol/HDL Ratio Glucose (Fingerstick) 173 mg/dL (70-99) Heparin Anti-Xa Act, Unfractionated > 1.10 IU/mL (0.30-0.70) Assessment and Plan Assessmemt and Plan Problems Medical Problems: (1) Chest pain Status: Acute (2) Dizziness Status: Acute (3) Elevated troponin Status: Acute Comment Review of Relevant I have reviewed the following items milla (where applicable) has been applied. Labs Laboratory Tests Test 06/21/18 15:40 06/21/18 20:20 06/21/18 22:31 06/21/18 23:10 White Blood Count 7.9 x10^3/uL (4.0-11.0) Red Blood Count 3.95 x10^6/uL (4.30-5.70) Hemoglobin 12.3 g/dL (13.0-17.5) Hematocrit 36.1 % (39.0-53.0) Mean Corpuscular Volume 91 fL (79-100) Mean Corpuscular Hemoglobin 31 pg (25-35) Mean Corpuscular Hemoglobin Concent 34 g/dL (31-37) Red Cell Distribution Width 13.8 % (11.5-14.5) Platelet Count 153 x10^3/uL (140-400) Neutrophils (%) (Auto) 76 % (31-73) Lymphocytes (%) (Auto) 13 % (24-48) Monocytes (%) (Auto) 8 % (0-9) Eosinophils (%) (Auto) 3 % (0-3) Basophils (%) (Auto) 0 % (0-3) Neutrophils # (Auto) 6.0 x10^3uL (1.8-7.7) Lymphocytes # (Auto) 1.0 x10^3/uL (1.0-4.8) Monocytes # (Auto) 0.6 x10^3/uL (0.0-1.1) Eosinophils # (Auto) 0.2 x10^3/uL (0.0-0.7) Basophils # (Auto) 0.0 x10^3/uL (0.0-0.2) D-Dimer (Mindy) 19.67 ug/mlFEU (0.00-0.50) Sodium Level 142 mmol/L (136-145) Potassium Level 5.0 mmol/L (3.5-5.1) Chloride Level 105 mmol/L (98-107) Carbon Dioxide Level 24 mmol/L (21-32) Anion Gap 13 (6-14) Blood Urea Nitrogen 27 mg/dL (8-26) Creatinine 2.0 mg/dL (0.7-1.3) Estimated GFR (Cockcroft-Gault) 39.1 BUN/Creatinine Ratio 14 (6-20) Glucose Level 206 mg/dL (70-99) Calcium Level 9.0 mg/dL (8.5-10.1) Magnesium Level 1.7 mg/dL (1.8-2.4) Total Bilirubin 0.7 mg/dL (0.2-1.0) Aspartate Amino Transf (AST/SGOT) 29 U/L (15-37) Alanine Aminotransferase (ALT/SGPT) 36 U/L (16-63) Alkaline Phosphatase 47 U/L (46-116) Troponin I Quantitative 0.156 ng/mL (0.000-0.055) 0.433 ng/mL (0.000-0.055) 0.469 ng/mL (0.000-0.055) AB-Emi-T-Type Natriuretic Peptide 77 pg/mL (0-449) Total Protein 6.6 g/dL (6.4-8.2) Albumin 3.5 g/dL (3.4-5.0) Albumin/Globulin Ratio 1.1 (1.0-1.7) Thyroid Stimulating Hormone (TSH) 2.365 uIU/mL (0.358-3.74) Glucose (Fingerstick) 182 mg/dL (70-99) Test 06/22/18 03:15 06/22/18 08:17 06/22/18 09:05 Sodium Level 144 mmol/L (136-145) Potassium Level 4.5 mmol/L (3.5-5.1) Chloride Level 107 mmol/L (98-107) Carbon Dioxide Level 24 mmol/L (21-32) Anion Gap 13 (6-14) Blood Urea Nitrogen 31 mg/dL (8-26) Creatinine 2.0 mg/dL (0.7-1.3) Estimated GFR (Cockcroft-Gault) 39.1 Glucose Level 163 mg/dL (70-99) Hemoglobin A1c 8.6 % (4.8-5.6) Calcium Level 8.4 mg/dL (8.5-10.1) Magnesium Level 1.8 mg/dL (1.8-2.4) Triglycerides Level 134 mg/dL (0-150) Cholesterol Level 104 mg/dL (0-200) LDL Cholesterol, Calculated 46 mg/dL (0-100) VLDL Cholesterol, Calculated 27 mg/dL (0-40) Non-HDL Cholesterol Calculated 73 mg/dL (0-129) HDL Cholesterol 31 mg/dL (40-60) Cholesterol/HDL Ratio Glucose (Fingerstick) 173 mg/dL (70-99) Heparin Anti-Xa Act, Unfractionated > 1.10 IU/mL (0.30-0.70) Laboratory Tests Test 06/21/18 15:40 06/21/18 20:20 06/21/18 22:31 06/21/18 23:10 White Blood Count 7.9 x10^3/uL (4.0-11.0) Red Blood Count 3.95 x10^6/uL (4.30-5.70) Hemoglobin 12.3 g/dL (13.0-17.5) Hematocrit 36.1 % (39.0-53.0) Mean Corpuscular Volume 91 fL (79-100) Mean Corpuscular Hemoglobin 31 pg (25-35) Mean Corpuscular Hemoglobin Concent 34 g/dL (31-37) Red Cell Distribution Width 13.8 % (11.5-14.5) Platelet Count 153 x10^3/uL (140-400) Neutrophils (%) (Auto) 76 % (31-73) Lymphocytes (%) (Auto) 13 % (24-48) Monocytes (%) (Auto) 8 % (0-9) Eosinophils (%) (Auto) 3 % (0-3) Basophils (%) (Auto) 0 % (0-3) Neutrophils # (Auto) 6.0 x10^3uL (1.8-7.7) Lymphocytes # (Auto) 1.0 x10^3/uL (1.0-4.8) Monocytes # (Auto) 0.6 x10^3/uL (0.0-1.1) Eosinophils # (Auto) 0.2 x10^3/uL (0.0-0.7) Basophils # (Auto) 0.0 x10^3/uL (0.0-0.2) D-Dimer (Mindy) 19.67 ug/mlFEU (0.00-0.50) Sodium Level 142 mmol/L (136-145) Potassium Level 5.0 mmol/L (3.5-5.1) Chloride Level 105 mmol/L (98-107) Carbon Dioxide Level 24 mmol/L (21-32) Anion Gap 13 (6-14) Blood Urea Nitrogen 27 mg/dL (8-26) Creatinine 2.0 mg/dL (0.7-1.3) Estimated GFR (Cockcroft-Gault) 39.1 BUN/Creatinine Ratio 14 (6-20) Glucose Level 206 mg/dL (70-99) Calcium Level 9.0 mg/dL (8.5-10.1) Magnesium Level 1.7 mg/dL (1.8-2.4) Total Bilirubin 0.7 mg/dL (0.2-1.0) Aspartate Amino Transf (AST/SGOT) 29 U/L (15-37) Alanine Aminotransferase (ALT/SGPT) 36 U/L (16-63) Alkaline Phosphatase 47 U/L (46-116) Troponin I Quantitative 0.156 ng/mL (0.000-0.055) 0.433 ng/mL (0.000-0.055) 0.469 ng/mL (0.000-0.055) SI-Hig-K-Type Natriuretic Peptide 77 pg/mL (0-449) Total Protein 6.6 g/dL (6.4-8.2) Albumin 3.5 g/dL (3.4-5.0) Albumin/Globulin Ratio 1.1 (1.0-1.7) Thyroid Stimulating Hormone (TSH) 2.365 uIU/mL (0.358-3.74) Glucose (Fingerstick) 182 mg/dL (70-99) Test 06/22/18 03:15 06/22/18 08:17 06/22/18 09:05 Sodium Level 144 mmol/L (136-145) Potassium Level 4.5 mmol/L (3.5-5.1) Chloride Level 107 mmol/L (98-107) Carbon Dioxide Level 24 mmol/L (21-32) Anion Gap 13 (6-14) Blood Urea Nitrogen 31 mg/dL (8-26) Creatinine 2.0 mg/dL (0.7-1.3) Estimated GFR (Cockcroft-Gault) 39.1 Glucose Level 163 mg/dL (70-99) Hemoglobin A1c 8.6 % (4.8-5.6) Calcium Level 8.4 mg/dL (8.5-10.1) Magnesium Level 1.8 mg/dL (1.8-2.4) Triglycerides Level 134 mg/dL (0-150) Cholesterol Level 104 mg/dL (0-200) LDL Cholesterol, Calculated 46 mg/dL (0-100) VLDL Cholesterol, Calculated 27 mg/dL (0-40) Non-HDL Cholesterol Calculated 73 mg/dL (0-129) HDL Cholesterol 31 mg/dL (40-60) Cholesterol/HDL Ratio Glucose (Fingerstick) 173 mg/dL (70-99) Heparin Anti-Xa Act, Unfractionated > 1.10 IU/mL (0.30-0.70) Medications Current Medications Aspirin (Children'S Aspirin) 324 mg 1X ONCE PO Last administered on 06/21/18at 16:02; Start 06/21/18 at 16:00; Stop 06/21/18 at 16:25; Status DC Enoxaparin Sodium (Lovenox 100mg Syringe) 100 mg 1X ONCE SQ Last administered on 06/21/18at 17:36; Start 06/21/18 at 17:00; Stop 06/21/18 at 17:07; Status DC Magnesium Oxide (Magnesium Oxide) 800 mg 1X ONCE PO Last administered on 06/21/18at 17:34; Start 06/21/18 at 17:00; Stop 06/21/18 at 17:07; Status DC Labetalol HCl (Normodyne Iv Push) 20 mg PRN Q2HR PRN IVP HYPERTENSION, SEE COMMENTS; Start 06/21/18 at 17:00 Sodium Chloride 500 ml @ 500 mls/hr 1X ONCE IV Last administered on 06/21/18at 18:35; Start 06/21/18 at 18:15; Stop 06/21/18 at 19:14; Status DC Enoxaparin Sodium (Lovenox Per Pharmacy Treatment Dosing) 1 each PRN DAILY PRN MC SEE COMMENTS; Start 06/21/18 at 21:00; Stop 06/22/18 at 02:46; Status DC Aspirin (ab&jb properties and services Aspirin) 325 mg DAILYWBKFT PO Last administered on 06/22/18at 08:20; Start 06/22/18 at 08:00 Carvedilol (Coreg) 3.125 mg BIDWMEALS PO Last administered on 06/22/18at 08:20; Start 06/22/18 at 08:00 Insulin Human Lispro (HumaLOG) 0-9 UNITS QIDACHS SQ Last administered on 06/22/18at 08:26; Start 06/21/18 at 21:00 Dextrose (Dextrose 50%-Water Syringe) 12.5 gm PRN Q15MIN PRN IV SEE COMMENTS; Start 06/21/18 at 21:00 Insulin Glargine (Lantus) 15 units QHS SQ Last administered on 06/21/18at 23:19; Start 06/21/18 at 21:00 Enoxaparin Sodium (Lovenox 120mg Syringe) 110 mg Q12HR SQ ; Start 06/22/18 at 09:00; Stop 06/22/18 at 09:00; Status DC Info (Anti-Coagulation Monitoring By Pharmacy) 1 each PRN DAILY PRN MC SEE COMMENTS; Start 06/21/18 at 21:00 Heparin Sodium/ Dextrose 500 ml @ 0 mls/hr CONT PRN IV SEE I/O RECORD Last administered on 06/22/18at 03:18; Start 06/22/18 at 02:30 Heparin Sodium (Porcine) (Heparin Sodium) 3,250 unit PRN Q6HRS PRN IV FOR UFH LEVEL LESS THAN 0.2; Start 06/22/18 at 02:30 Heparin Sodium (Porcine) (Heparin Sodium) 1,600 unit PRN Q6HRS PRN IV FOR UFH LEVEL 0.2 - 0.29; Start 06/22/18 at 02:30 Vitals/I & O Vital Sign - Last 24 Hours 06/21/18 06/21/18 06/21/18 06/21/18 15:25 16:01 16:21 16:51 Temp 98.1 98.1 Pulse 90 94 80 88 Resp 18 20 19 16 B/P (MAP) 140/90 (107) 140/76 (97) 132/72 (92) 114/61 (78) Pulse Ox 98 99 99 98 O2 Delivery Nasal Cannula Nasal Cannula Nasal Cannula Room Air O2 Flow Rate 2.0 2.0 2.0 06/21/18 06/21/18 06/21/18 06/21/18 17:38 17:51 18:21 19:15 Temp 97.6 97.6 Pulse 86 84 82 77 Resp 22 20 20 18 B/P (MAP) 130/54 (79) 116/56 (76) 133/60 (84) 112/66 (81) Pulse Ox 98 96 95 95 O2 Delivery Nasal Cannula Nasal Cannula Nasal Cannula Room Air O2 Flow Rate 2.0 2.0 2.0 06/21/18 06/21/18 06/21/18 06/21/18 20:00 23:27 23:28 23:28 Temp 97.7 97.7 Pulse 68 Resp 18 B/P (MAP) 110/60 (77) 113/52 (72) 118/59 (78) Pulse Ox 97 O2 Delivery Nasal Cannula Nasal Cannula O2 Flow Rate 2.0 2.0 06/22/18 06/22/18 06/22/18 06/22/18 03:11 07:00 08:00 08:20 Temp 97.6 97.6 97.6 97.6 Pulse 65 60 67 Resp 16 18 B/P (MAP) 115/61 (79) 115/56 (75) 115/57 Pulse Ox 97 96 O2 Delivery Nasal Cannula Nasal Cannula Nasal Cannula O2 Flow Rate 2.0 2.0 2.0 Intake and Output 06/21/18 06/21/18 06/22/18 15:00 23:00 07:00 Intake Total 1040 ml Balance 1040 ml MICHELLE PARKER MD June 22, 2018 10:47
--- NOTE | 2018-06-22 10:55 | NUR ---
SS following for discharge planning. SS reviewed pt chart. Pt is from home with spouse and is currently requiring oxygen. No discharge needs noted at this time. SS will continue to follow for discharge planning.
[2018-06-22 11:22] VITALS: BP 126/62
--- NOTE | 2018-06-22 11:35 | RAD ---
Ventilation/perfusion lung scan, 06/22/2018: HISTORY: Dyspnea The ventilation study was performed utilizing 19.8 mCi of xenon-133. Activity in the lungs is symmetric. There is good washout of xenon from both lungs. Perfusion imaging was performed utilizing 5.5 mCi of technetium 99m MAA. There are multiple unmatched bilateral pulmonary perfusion defects. The largest of these lies in the right upper chest and involves the majority of the right upper lobe. There are smaller peripheral perfusion defects on the left. IMPRESSION: Bilateral unmatched perfusion defects, worse on the right, compatible with pulmonary emboli. Note: The findings were called to the patient's nurse on the floor at 11:32 AM on 06/22/2018. Electronically signed by: Aamir Giordano MD (06/22/2018 11:32 AM) [facility]
--- NOTE | 2018-06-22 11:55 | CARD ---
MR#: [id number] Date of Study: 06/22/2018 Ordering Physician: JOSEPH VILLALPANDO, Referring Physician: GONZALEZ ORDOÑEZ Tech: Fabiola James RDCS APPROVED REPORT EXAM: Two-dimensional and M-mode echocardiogram with Doppler and color Doppler. Other Information Quality : Good INDICATION Congestive Heart Failure 2D DIMENSIONS RVDd3.2 (2.9-3.5cm)Left Atrium(2D)3.0 (1.6-4.0cm) IVSd0.8 (0.7-1.1cm)Aortic Root(2D)2.9 (2.0-3.7cm) LVDd5.2 (3.9-5.9cm)LVOT Diameter2.1 (1.8-2.4cm) PWd1.0 (0.7-1.1cm)LVDs3.5 (2.5-4.0cm) FS (%) 32.7 %SV77.6 ml Aortic Valve AoV Peak Pierre.102.1cm/sAoV VTI19.1cm AO Peak GR.4.2mmHgLVOT Peak Pierre.90.3cm/s LVOT VTI 16.49cmAO Mean GR.2mmHg VIOLET (VMAX)3.35cg2DVK (VTI)3.10cm2 Mitral Valve MV E Grnqbjkd56.1cm/sMV DECEL [id number] MV A Flffauki86.4cm/sMV EUZ61ea E/A Ratio0.7MVA (PHT)2.89cm2 TDI E/Lateral E'7.8E/Medial E'9.3 Tricuspid Valve TR P. Hwqmjuuu070jx/sRAP [id number] TR Peak Gr.[id number] Pulmonary Vein S1 Zfsrdbmf35.3cm/sD2 Josqetqd00.8cm/s LEFT VENTRICLE The left ventricle is normal size. There is normal left ventricular wall thickness. The left ventricu lar systolic function is normal and the ejection fraction is within normal range. The Ejection Fracti on is 55-60%. There is normal LV segmental wall motion. Transmitral Doppler flow pattern is Grade I-a bnormal relaxation pattern. RIGHT VENTRICLE The right ventricle is mildly dilated. The right ventricular systolic function is normal. ATRIA The left atrium size is normal. The right atrium is mildly dilated. The interatrial septum is intact with no evidence for an atrial septal defect or patent foramen ovale as noted on 2-D or Doppler imagi ng. AORTIC VALVE The aortic valve is calcified but opens well. Doppler and Color Flow revealed no significant aortic r egurgitation. There is no significant aortic valvular stenosis. MITRAL VALVE The mitral valve is calcified but opens well. Mitral annular calcification is mild. There is no evide nce of mitral valve prolapse. There is no mitral valve stenosis. Doppler and Color-flow revealed trac e mitral regurgitation. TRICUSPID VALVE The tricuspid valve is normal in structure and function. Doppler and Color Flow revealed trace to mil d tricuspid regurgitation. The PA pressure was estimated at 30 mmHg. There is no tricuspid valve sten osis. PULMONIC VALVE The pulmonic valve is not well visualized. Doppler and Color Flow revealed no pulmonic valvular regur gitation. There is no pulmonic valvular stenosis. GREAT VESSELS The aortic root is normal in size. The ascending aorta is normal in size. The IVC was not visualized. PERICARDIAL EFFUSION There is no evidence of significant pericardial effusion. Critical Notification Critical Value: No <Conclusion> The left ventricle is normal size. The left ventricular systolic function is normal and the ejection fraction is within normal range. The Ejection Fraction is 55-60%. There is no significant aortic valvular stenosis. Doppler and Color Flow revealed no significant aortic regurgitation. Doppler and Color-flow revealed trace mitral regurgitation. Doppler and Color Flow revealed trace to mild tricuspid regurgitation. The PA pressure was estimated at 30 mmHg. Signed by : Feliciano Johnson MD Electronically Approved : 06/22/2018 11:54:50
--- NOTE | 2018-06-22 12:12 | CONS ---
DATE OF CONSULTATION: PULMONARY CONSULTATION ATTENDING PHYSICIAN: Samia Purcell MD. REASON FOR CONSULTATION: Pulmonary embolism. HISTORY OF PRESENT ILLNESS: The patient is an 82-year-old male who has a history of pulmonary embolism about 5-6 years ago and also DVT. He says he was treated with one year of anticoagulation with warfarin. After that it was subsequently stopped. He does not ambulate much because of his neuropathy. He came into the hospital because of shortness of breath and also right-sided chest discomfort. The patient was also a bit dizzy. The patient was seen in the Emergency Room. 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 The V/Q scan was also performed, which was reviewed by me and it shows bilateral unmatched perfusion defects, worse on the right and compatible with pulmonary embolism. The patient has no history of malignancy. Denies any weight loss. He had a screening colonoscopy done within the 5 years and was told that it was normal. Consultation requested for further evaluation and management. PAST MEDICAL HISTORY: History of DVT and PE 5 years ago, treated with anticoagulation was unprovoked, history of osteoarthritis, history of chronic renal insufficiency, history of diabetes. PAST SURGICAL HISTORY: No recent surgery. ALLERGIES: ROSIGLITAZONE. MEDICATIONS: Reviewed as listed in the MRAD including heparin per protocol. REVIEW OF SYSTEMS: Twelve-point system obtained. Pertinent positives discussed in my history of present illness, otherwise noncontributory. Denies any headaches. No nausea or vomiting. No diarrhea. No dysuria. No focal weakness. No rash. PHYSICAL EXAMINATION: VITAL SIGNS: Reviewed, stable, pulse ox 95% on 2 liters. NECK: Supple. LUNGS: Clear. CARDIOVASCULAR: Regular rate and rhythm. ABDOMEN: Soft, nontender. EXTREMITIES: With trace bilateral pitting edema. LABORATORY DATA: Reviewed. White cell count 7.9, hemoglobin 12.3, platelets are 153. D-dimer 19.67. 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 Probably risk factor includes immobilization due to his peripheral neuropathy. He has no known cancers. His V/Q scan is consistent with high probability for pulmonary embolism with bilateral mismatched perfusion defects and his venous Dopplers are showing subacute clot in the distal superficial femoral vein and popliteal vein on the right side. RECOMMENDATIONS: 1. The patient would need lifelong anticoagulation. 2. Follow up venous Dopplers and V/Q scan about 4-6 weeks. 3. We will do a noncontrast CT chest to rule out any occult malignancy. 4. The patient can be initiated on Eliquis and heparin can be discontinued and the patient could be discharged in the next 24 hours. 5. Mildly increased troponin is probably related to right ventricular ischemia. STANLEY LU MD DR: ANUEL/willa JOB#: [id number] / [id number] SAMIA Harry MD
[2018-06-22] MEDS: ANTI-COAG MONITOR BY PHARMACY. MC PRN (12:40)
[2018-06-22] MEDS: APIXABAN 5 MG TABLET. PO SCH ×2 (13:17→21:28)
--- NOTE | 2018-06-22 13:53 | PDOC ---
JOSEPH VILLALPANDO ACT TUTOR 06/22/18 1353: CARDIO Progress Notes Date and Time Date of Service 06/22/2018 Time of Evaluation 1330 Subjective Subjective: No Chest Pain, No shortness of breath, No Palpitations Vitals Vitals Vital Signs Date Time Temp Pulse Resp B/P (MAP) Pulse Ox O2 Delivery O2 Flow Rate FiO2 06/22/18 11:22 97.7 56 18 126/62 (83) 95 Nasal Cannula 2.0 97.7 Weight Weight [ ] Input and Output Intake and Output Intake and Output 06/22/18 06:59 Intake Total 1040 ml Balance 1040 ml Intake Oral 320 ml Tube Feeding 720 ml Laboratory Labs Laboratory Tests Test 06/21/18 15:40 06/21/18 20:20 06/21/18 22:31 06/21/18 23:10 White Blood Count 7.9 x10^3/uL (4.0-11.0) Red Blood Count 3.95 x10^6/uL (4.30-5.70) Hemoglobin 12.3 g/dL (13.0-17.5) Hematocrit 36.1 % (39.0-53.0) Mean Corpuscular Volume 91 fL (79-100) Mean Corpuscular Hemoglobin 31 pg (25-35) Mean Corpuscular Hemoglobin Concent 34 g/dL (31-37) Red Cell Distribution Width 13.8 % (11.5-14.5) Platelet Count 153 x10^3/uL (140-400) Neutrophils (%) (Auto) 76 % (31-73) Lymphocytes (%) (Auto) 13 % (24-48) Monocytes (%) (Auto) 8 % (0-9) Eosinophils (%) (Auto) 3 % (0-3) Basophils (%) (Auto) 0 % (0-3) Neutrophils # (Auto) 6.0 x10^3uL (1.8-7.7) Lymphocytes # (Auto) 1.0 x10^3/uL (1.0-4.8) Monocytes # (Auto) 0.6 x10^3/uL (0.0-1.1) Eosinophils # (Auto) 0.2 x10^3/uL (0.0-0.7) Basophils # (Auto) 0.0 x10^3/uL (0.0-0.2) D-Dimer (Mindy) 19.67 ug/mlFEU (0.00-0.50) Sodium Level 142 mmol/L (136-145) Potassium Level 5.0 mmol/L (3.5-5.1) Chloride Level 105 mmol/L (98-107) Carbon Dioxide Level 24 mmol/L (21-32) Anion Gap 13 (6-14) Blood Urea Nitrogen 27 mg/dL (8-26) Creatinine 2.0 mg/dL (0.7-1.3) Estimated GFR (Cockcroft-Gault) 39.1 BUN/Creatinine Ratio 14 (6-20) Glucose Level 206 mg/dL (70-99) Calcium Level 9.0 mg/dL (8.5-10.1) Magnesium Level 1.7 mg/dL (1.8-2.4) Total Bilirubin 0.7 mg/dL (0.2-1.0) Aspartate Amino Transf (AST/SGOT) 29 U/L (15-37) Alanine Aminotransferase (ALT/SGPT) 36 U/L (16-63) Alkaline Phosphatase 47 U/L (46-116) Troponin I Quantitative 0.156 ng/mL (0.000-0.055) 0.433 ng/mL (0.000-0.055) 0.469 ng/mL (0.000-0.055) HF-Bsf-J-Type Natriuretic Peptide 77 pg/mL (0-449) Total Protein 6.6 g/dL (6.4-8.2) Albumin 3.5 g/dL (3.4-5.0) Albumin/Globulin Ratio 1.1 (1.0-1.7) Thyroid Stimulating Hormone (TSH) 2.365 uIU/mL (0.358-3.74) Glucose (Fingerstick) 182 mg/dL (70-99) Test 06/22/18 03:15 06/22/18 08:17 06/22/18 09:05 06/22/18 11:34 Sodium Level 144 mmol/L (136-145) Potassium Level 4.5 mmol/L (3.5-5.1) Chloride Level 107 mmol/L (98-107) Carbon Dioxide Level 24 mmol/L (21-32) Anion Gap 13 (6-14) Blood Urea Nitrogen 31 mg/dL (8-26) Creatinine 2.0 mg/dL (0.7-1.3) Estimated GFR (Cockcroft-Gault) 39.1 Glucose Level 163 mg/dL (70-99) Hemoglobin A1c 8.6 % (4.8-5.6) Calcium Level 8.4 mg/dL (8.5-10.1) Magnesium Level 1.8 mg/dL (1.8-2.4) Triglycerides Level 134 mg/dL (0-150) Cholesterol Level 104 mg/dL (0-200) LDL Cholesterol, Calculated 46 mg/dL (0-100) VLDL Cholesterol, Calculated 27 mg/dL (0-40) Non-HDL Cholesterol Calculated 73 mg/dL (0-129) HDL Cholesterol 31 mg/dL (40-60) Cholesterol/HDL Ratio Glucose (Fingerstick) 173 mg/dL (70-99) 153 mg/dL (70-99) Activated Partial Thromboplast Time > 150 SEC (24-38) Heparin Anti-Xa Act, Unfractionated > 1.10 IU/mL (0.30-0.70) Physical Exam HEENT: Neck Supple W Full Motion Chest: Symmetric LUNGS: Clear to Auscultation Heart: S1S2, RRR (SR) Abdomen: Soft N/T Extremities: No Calf Tenderness Neurology: alert, oriented, follow commands Assessment Assessment 1. PE/RLE DVT: last episode 2-3 yrs ago. 2. NSTEMI: Type 2, Trop peaked at 0.46 in the setting of PE and EMERALD. EF and WM nml. 3. Chronic diastolic CHF: compensated. he takes lasix at home. 4. Moderate LLE PAD 5. COPD/BRENDA: uses CPAP at home. 6. HTN: controlled 7. DM2/DPN: insulin dependent.not controlled with A1C at 8.6. Defer to PCP 8. HLP: lipids on goal 9. CKD3: Cr is likely his baseline, no prior to compare. Recommendations 1. Received lovenox yesterday. Heparin ongoing. Anticoagulation per pulmonary 2. Continue with secondary prevention. 3. Continue with coreg. Discussed with RN to update pt med list. Pending his renal function and BP trend will restart his home ACEi or ARB 4. Ischemic workup will be considered as an outpt given his cardiac risk factors. Will monitor PAD as an outpt. 5. Follow up with Dr. Hubbard on August 12 at 9:30 AM SHERMAN HUBBARD MD 06/22/18 2222: CARDIO Progress Notes Plan Plan Pt. seen and examined. Agree with above SWEEP PRESS OPERATOR note No acute events overnight. Now with DVT/PE On anticoagulation. No clear claudication or CLI Continue aggressive medical therapy. JOSEPH VILLALPANDO APRN June 22, 2018 13:53 SHERMAN HUBBARD MD June 22, 2018 22:22
[2018-06-22 15:00] VITALS: BP 157/73
--- NOTE | 2018-06-22 15:29 | RAD ---
CT chest without contrast dated 06/22/2018. No comparison available. CLINICAL INDICATION: History of pulmonary embolus. Evaluate for mass. TECHNIQUE: Contiguous axial imaging the chest performed without the administration of intravenous contrast. One or more of the following individualized dose reduction techniques were utilized for this examination: 1. Automated exposure control 2. Adjustment of the mA and/or kV according to patient size 3. Use of iterative reconstruction technique. FINDINGS: Heart size within normal limits. No pericardial effusion. Coronary artery calcifications. Prominent calcification of the left atrial appendage. Mild ectasia of the ascending thoracic aorta measuring 3.8 cm transverse. No mediastinal, hilar or axillary lymphadenopathy. Thyroid gland unremarkable. Evaluation for pulmonary embolus is limited in the absence of contrast material. There is some heterogeneous density of the main pulmonary arteries with linear hyperdense focus along the posterior right main pulmonary artery the could represent saddle embolus. Central airways are patent. Mild emphysema. There are a few scattered calcified granuloma. A noncalcified pulmonary nodule in the right middle lobe on image 38 measures 5 mm. There is also a noncalcified pulmonary nodule in the anterior right lower lobe on image 39 measures 4 mm. No consolidation or pleural effusion. No discrete mass. Limited images of upper abdomen unremarkable. Small hiatal hernia. Bone windows show no acute findings. Multilevel spondylosis. Generalized bony sclerosis. IMPRESSION: 1. No evidence of suspicious pulmonary mass. There is noncalcific pulmonary nodules in the right middle lobe and right lower lobe that are indeterminate and follow-up imaging may be warranted to ensure stability. 2. Evaluation for pulmonary embolus is limited in the absence of contrast material. There is some heterogeneous high density within the main lobar pulmonary arteries and right main pulmonary artery that is suspicious for PE and possible saddle embolus. Please see the CT scan dated same day for further information. 3. Coronary artery calcifications with calcification of the left atrial appendage. 4. Generalized sclerotic change throughout the visualized osseous structures, nonspecific. Electronically signed by: Jong Garcia MD (06/22/2018 3:26 PM) [id number]
[2018-06-22 19:05] VITALS: BP 130/62
[2018-06-22] MEDS: INSULIN GLARGINE 300 UNITS/3 ML INSULN.PEN. SQ SCH (21:39)
[2018-06-22 22:26] LABS: BILIRUBIN,URINE NEGATIVE (NEG); CLARITY,URINE CLEAR; COLOR,URINE YELLOW; NITRITE,URINE NEGATIVE (NEG); PH,URINE 5.5; PROTEIN,URINE NEGATIVE (NEG-TRACE); UROBILINOGEN,URINE 0.2 mg/dL (0.2 mg/dL)
[2018-06-22 22:33] LABS: BACTERIA,URINE 0 /HPF (0-FEW); RBC,URINE OCC /HPF (0-2); SQUAMOUS EPITHELIAL CELL,UR OCC /LPF; WBC,URINE 0 /HPF (0-4)
[2018-06-22 23:40] VITALS: BP 135/67
[2018-06-23 03:05] VITALS: BP 135/61
[2018-06-23 05:13] LABS: BASO % 1 % (0-3); EOS # 0.6 x10^3/uL (0.0-0.7); EOS % 10 % (0-3); HEMATOCRIT 32.5 % (39.0-53.0); LYMPH # 1.8 x10^3/uL (1.0-4.8); LYMPH % 29 % (24-48); MEAN CORPUSCULAR HEMOGLOBIN 31 pg (25-35); MEAN CORPUSCULAR HGB CONC 34 g/dL (31-37); MEAN CORPUSCULAR VOLUME 92 fL (79-100); MONO # 0.5 x10^3/uL (0.0-1.1); MONO % 7 % (0-9); NEUT # 3.3 x10^3uL (1.8-7.7); NEUT % 53 % (31-73); PLATELET COUNT 148 x10^3/uL (140-400); RED BLOOD COUNT 3.55 x10^6/uL (4.30-5.70); RED CELL DISTRIBUTION WIDTH 14.3 % (11.5-14.5); WHITE BLOOD COUNT 6.2 x10^3/uL (4.0-11.0)
[2018-06-23 05:40] LABS: ALBUMIN 2.9 g/dL (3.4-5.0); CALCIUM 8.3 mg/dL (8.5-10.1); CREATININE 1.5 mg/dL (0.7-1.3); GFR 54.5; POTASSIUM 4.4 mmol/L (3.5-5.1); TOTAL BILIRUBIN 0.3 mg/dL (0.2-1.0); TOTAL PROTEIN 5.7 g/dL (6.4-8.2)
[2018-06-23 07:00] VITALS: BP 129/63
[2018-06-23] MEDS: INSULIN LISPRO 300 UNITS/3 ML INSULN.PEN. SQ SCH ×2 (07:30→12:29)
[2018-06-23] MEDS ORDERED: ASPIRIN ENTERIC COATED 81 MG TABLET.DR. PO SCH (08:00)
[2018-06-23] MEDS: CARVEDILOL 3.125 MG TABLET. PO SCH (08:35)
[2018-06-23] MEDS: APIXABAN 5 MG TABLET. PO SCH (08:36)
--- NOTE | 2018-06-23 09:10 | PDOC ---
PROGRESS NOTES History of Present Illness History of Present Illness Assessment/Plan Assessment/Plan chest pain, unstable angina, troponin elevation may be Type 2 NSTEMI, demand Acute CHF with possible diastolic dysfunction hx arteria thrombus, leg US done CKD 3-4 obesity, BMI 32 irasema htn nodular density at the suprahilar region on the left appears somewhat more prominent from prior exam. This could be related to artifact or a developing lung nodule. Suggest short-term follow-up PA and lateral exam to ensure stability/resolution Bilateral unmatched perfusion defects, worse on the right, compatible with pulmonary emboli. diabetes a1c =8.6 plan cardiology consult CV workup cvc admit PULM CONSULT ELIQUIS 10MG PO BID X 7 DAYS, THEN 5 MG PO BID The patient WILL need lifelong anticoagulation. Follow up venous Dopplers and V/Q scan about 4-6 weeks. Ischemic workup will be considered as an outpt given his cardiac risk factors. Will monitor PAD as an outpt. Follow up with Dr. Gambino on August 12 at 9:30 AM ADA DIET, SEE PCP NEXT WEEK, Begin micronase 2.5 mg po daily Vitals Vitals Vital Signs Date Time Temp Pulse Resp B/P (MAP) Pulse Ox O2 Delivery O2 Flow Rate FiO2 06/23/18 08:35 62 129/63 06/23/18 08:00 Room Air 06/23/18 07:00 97.8 16 97 2.0 97.8 Physical Exam General: Alert, Oriented X3, Cooperative, No acute distress Heart: Regular rate (SR with first degree AV block. ), Normal S1, Other (2/6 systolic murmur to LLS border) Lungs: Clear Abdomen: Normal bowel sounds, Soft Extremities: No clubbing, No cyanosis, No edema, Normal pulses Skin: No breakdown, No significant lesion Labs LABS Laboratory Tests Test 06/22/18 11:34 06/22/18 16:58 06/22/18 21:17 06/23/18 04:40 Glucose (Fingerstick) 153 mg/dL (70-99) 77 mg/dL (70-99) 129 mg/dL (70-99) White Blood Count 6.2 x10^3/uL (4.0-11.0) Red Blood Count 3.55 x10^6/uL (4.30-5.70) Hemoglobin 11.0 g/dL (13.0-17.5) Hematocrit 32.5 % (39.0-53.0) Mean Corpuscular Volume 92 fL (79-100) Mean Corpuscular Hemoglobin 31 pg (25-35) Mean Corpuscular Hemoglobin Concent 34 g/dL (31-37) Red Cell Distribution Width 14.3 % (11.5-14.5) Platelet Count 148 x10^3/uL (140-400) Neutrophils (%) (Auto) 53 % (31-73) Lymphocytes (%) (Auto) 29 % (24-48) Monocytes (%) (Auto) 7 % (0-9) Eosinophils (%) (Auto) 10 % (0-3) Basophils (%) (Auto) 1 % (0-3) Neutrophils # (Auto) 3.3 x10^3uL (1.8-7.7) Lymphocytes # (Auto) 1.8 x10^3/uL (1.0-4.8) Monocytes # (Auto) 0.5 x10^3/uL (0.0-1.1) Eosinophils # (Auto) 0.6 x10^3/uL (0.0-0.7) Basophils # (Auto) 0.0 x10^3/uL (0.0-0.2) Sodium Level 143 mmol/L (136-145) Potassium Level 4.4 mmol/L (3.5-5.1) Chloride Level 108 mmol/L (98-107) Carbon Dioxide Level 26 mmol/L (21-32) Anion Gap 9 (6-14) Blood Urea Nitrogen 23 mg/dL (8-26) Creatinine 1.5 mg/dL (0.7-1.3) Estimated GFR (Cockcroft-Gault) 54.5 BUN/Creatinine Ratio 15 (6-20) Glucose Level 124 mg/dL (70-99) Calcium Level 8.3 mg/dL (8.5-10.1) Total Bilirubin 0.3 mg/dL (0.2-1.0) Aspartate Amino Transf (AST/SGOT) 23 U/L (15-37) Alanine Aminotransferase (ALT/SGPT) 27 U/L (16-63) Alkaline Phosphatase 38 U/L (46-116) Total Protein 5.7 g/dL (6.4-8.2) Albumin 2.9 g/dL (3.4-5.0) Albumin/Globulin Ratio 1.0 (1.0-1.7) Test 06/23/18 07:11 Glucose (Fingerstick) 113 mg/dL (70-99) Assessment and Plan Assessmemt and Plan Problems Medical Problems: (1) Chest pain Status: Acute (2) Dizziness Status: Acute (3) Elevated troponin Status: Acute Comment Review of Relevant I have reviewed the following items milla (where applicable) has been applied. Labs Laboratory Tests Test 06/21/18 15:26 06/21/18 15:40 06/21/18 20:20 06/21/18 22:31 Urine Collection Type Unknown Urine Color Yellow Urine Clarity Clear Urine pH 5.5 Urine Specific [place] 1.020 Urine Protein Negative mg/dL (NEG-TRACE) Urine Glucose (UA) Negative mg/dL (NEG) Urine Ketones (Stick) Negative mg/dL (NEG) Urine Blood Negative (NEG) Urine Nitrite Negative (NEG) Urine Bilirubin Negative (NEG) Urine Urobilinogen Dipstick 0.2 mg/dL (0.2 mg/dL) Urine Leukocyte Esterase Negative (NEG) Urine RBC Occ /HPF (0-2) Urine WBC 0 /HPF (0-4) Urine Squamous Epithelial Cells Occ /LPF Urine Bacteria 0 /HPF (0-FEW) Urine Mucus Mod /LPF White Blood Count 7.9 x10^3/uL (4.0-11.0) Red Blood Count 3.95 x10^6/uL (4.30-5.70) Hemoglobin 12.3 g/dL (13.0-17.5) Hematocrit 36.1 % (39.0-53.0) Mean Corpuscular Volume 91 fL (79-100) Mean Corpuscular Hemoglobin 31 pg (25-35) Mean Corpuscular Hemoglobin Concent 34 g/dL (31-37) Red Cell Distribution Width 13.8 % (11.5-14.5) Platelet Count 153 x10^3/uL (140-400) Neutrophils (%) (Auto) 76 % (31-73) Lymphocytes (%) (Auto) 13 % (24-48) Monocytes (%) (Auto) 8 % (0-9) Eosinophils (%) (Auto) 3 % (0-3) Basophils (%) (Auto) 0 % (0-3) Neutrophils # (Auto) 6.0 x10^3uL (1.8-7.7) Lymphocytes # (Auto) 1.0 x10^3/uL (1.0-4.8) Monocytes # (Auto) 0.6 x10^3/uL (0.0-1.1) Eosinophils # (Auto) 0.2 x10^3/uL (0.0-0.7) Basophils # (Auto) 0.0 x10^3/uL (0.0-0.2) D-Dimer (Mindy) 19.67 ug/mlFEU (0.00-0.50) Sodium Level 142 mmol/L (136-145) Potassium Level 5.0 mmol/L (3.5-5.1) Chloride Level 105 mmol/L (98-107) Carbon Dioxide Level 24 mmol/L (21-32) Anion Gap 13 (6-14) Blood Urea Nitrogen 27 mg/dL (8-26) Creatinine 2.0 mg/dL (0.7-1.3) Estimated GFR (Cockcroft-Gault) 39.1 BUN/Creatinine Ratio 14 (6-20) Glucose Level 206 mg/dL (70-99) Calcium Level 9.0 mg/dL (8.5-10.1) Magnesium Level 1.7 mg/dL (1.8-2.4) Total Bilirubin 0.7 mg/dL (0.2-1.0) Aspartate Amino Transf (AST/SGOT) 29 U/L (15-37) Alanine Aminotransferase (ALT/SGPT) 36 U/L (16-63) Alkaline Phosphatase 47 U/L (46-116) Troponin I Quantitative 0.156 ng/mL (0.000-0.055) 0.433 ng/mL (0.000-0.055) EL-Sdk-H-Type Natriuretic Peptide 77 pg/mL (0-449) Total Protein 6.6 g/dL (6.4-8.2) Albumin 3.5 g/dL (3.4-5.0) Albumin/Globulin Ratio 1.1 (1.0-1.7) Thyroid Stimulating Hormone (TSH) 2.365 uIU/mL (0.358-3.74) Glucose (Fingerstick) 182 mg/dL (70-99) Test 06/21/18 23:10 06/22/18 03:15 06/22/18 08:17 06/22/18 09:05 Troponin I Quantitative 0.469 ng/mL (0.000-0.055) Sodium Level 144 mmol/L (136-145) Potassium Level 4.5 mmol/L (3.5-5.1) Chloride Level 107 mmol/L (98-107) Carbon Dioxide Level 24 mmol/L (21-32) Anion Gap 13 (6-14) Blood Urea Nitrogen 31 mg/dL (8-26) Creatinine 2.0 mg/dL (0.7-1.3) Estimated GFR (Cockcroft-Gault) 39.1 Glucose Level 163 mg/dL (70-99) Hemoglobin A1c 8.6 % (4.8-5.6) Calcium Level 8.4 mg/dL (8.5-10.1) Magnesium Level 1.8 mg/dL (1.8-2.4) Triglycerides Level 134 mg/dL (0-150) Cholesterol Level 104 mg/dL (0-200) LDL Cholesterol, Calculated 46 mg/dL (0-100) VLDL Cholesterol, Calculated 27 mg/dL (0-40) Non-HDL Cholesterol Calculated 73 mg/dL (0-129) HDL Cholesterol 31 mg/dL (40-60) Cholesterol/HDL Ratio Glucose (Fingerstick) 173 mg/dL (70-99) Activated Partial Thromboplast Time > 150 SEC (24-38) Heparin Anti-Xa Act, Unfractionated > 1.10 IU/mL (0.30-0.70) Test 06/22/18 11:34 06/22/18 16:58 06/22/18 21:17 06/23/18 04:40 Glucose (Fingerstick) 153 mg/dL (70-99) 77 mg/dL (70-99) 129 mg/dL (70-99) White Blood Count 6.2 x10^3/uL (4.0-11.0) Red Blood Count 3.55 x10^6/uL (4.30-5.70) Hemoglobin 11.0 g/dL (13.0-17.5) Hematocrit 32.5 % (39.0-53.0) Mean Corpuscular Volume 92 fL (79-100) Mean Corpuscular Hemoglobin 31 pg (25-35) Mean Corpuscular Hemoglobin Concent 34 g/dL (31-37) Red Cell Distribution Width 14.3 % (11.5-14.5) Platelet Count 148 x10^3/uL (140-400) Neutrophils (%) (Auto) 53 % (31-73) Lymphocytes (%) (Auto) 29 % (24-48) Monocytes (%) (Auto) 7 % (0-9) Eosinophils (%) (Auto) 10 % (0-3) Basophils (%) (Auto) 1 % (0-3) Neutrophils # (Auto) 3.3 x10^3uL (1.8-7.7) Lymphocytes # (Auto) 1.8 x10^3/uL (1.0-4.8) Monocytes # (Auto) 0.5 x10^3/uL (0.0-1.1) Eosinophils # (Auto) 0.6 x10^3/uL (0.0-0.7) Basophils # (Auto) 0.0 x10^3/uL (0.0-0.2) Sodium Level 143 mmol/L (136-145) Potassium Level 4.4 mmol/L (3.5-5.1) Chloride Level 108 mmol/L (98-107) Carbon Dioxide Level 26 mmol/L (21-32) Anion Gap 9 (6-14) Blood Urea Nitrogen 23 mg/dL (8-26) Creatinine 1.5 mg/dL (0.7-1.3) Estimated GFR (Cockcroft-Gault) 54.5 BUN/Creatinine Ratio 15 (6-20) Glucose Level 124 mg/dL (70-99) Calcium Level 8.3 mg/dL (8.5-10.1) Total Bilirubin 0.3 mg/dL (0.2-1.0) Aspartate Amino Transf (AST/SGOT) 23 U/L (15-37) Alanine Aminotransferase (ALT/SGPT) 27 U/L (16-63) Alkaline Phosphatase 38 U/L (46-116) Total Protein 5.7 g/dL (6.4-8.2) Albumin 2.9 g/dL (3.4-5.0) Albumin/Globulin Ratio 1.0 (1.0-1.7) Test 06/23/18 07:11 Glucose (Fingerstick) 113 mg/dL (70-99) Laboratory Tests Test 06/22/18 11:34 06/22/18 16:58 06/22/18 21:17 06/23/18 04:40 Glucose (Fingerstick) 153 mg/dL (70-99) 77 mg/dL (70-99) 129 mg/dL (70-99) White Blood Count 6.2 x10^3/uL (4.0-11.0) Red Blood Count 3.55 x10^6/uL (4.30-5.70) Hemoglobin 11.0 g/dL (13.0-17.5) Hematocrit 32.5 % (39.0-53.0) Mean Corpuscular Volume 92 fL (79-100) Mean Corpuscular Hemoglobin 31 pg (25-35) Mean Corpuscular Hemoglobin Concent 34 g/dL (31-37) Red Cell Distribution Width 14.3 % (11.5-14.5) Platelet Count 148 x10^3/uL (140-400) Neutrophils (%) (Auto) 53 % (31-73) Lymphocytes (%) (Auto) 29 % (24-48) Monocytes (%) (Auto) 7 % (0-9) Eosinophils (%) (Auto) 10 % (0-3) Basophils (%) (Auto) 1 % (0-3) Neutrophils # (Auto) 3.3 x10^3uL (1.8-7.7) Lymphocytes # (Auto) 1.8 x10^3/uL (1.0-4.8) Monocytes # (Auto) 0.5 x10^3/uL (0.0-1.1) Eosinophils # (Auto) 0.6 x10^3/uL (0.0-0.7) Basophils # (Auto) 0.0 x10^3/uL (0.0-0.2) Sodium Level 143 mmol/L (136-145) Potassium Level 4.4 mmol/L (3.5-5.1) Chloride Level 108 mmol/L (98-107) Carbon Dioxide Level 26 mmol/L (21-32) Anion Gap 9 (6-14) Blood Urea Nitrogen 23 mg/dL (8-26) Creatinine 1.5 mg/dL (0.7-1.3) Estimated GFR (Cockcroft-Gault) 54.5 BUN/Creatinine Ratio 15 (6-20) Glucose Level 124 mg/dL (70-99) Calcium Level 8.3 mg/dL (8.5-10.1) Total Bilirubin 0.3 mg/dL (0.2-1.0) Aspartate Amino Transf (AST/SGOT) 23 U/L (15-37) Alanine Aminotransferase (ALT/SGPT) 27 U/L (16-63) Alkaline Phosphatase 38 U/L (46-116) Total Protein 5.7 g/dL (6.4-8.2) Albumin 2.9 g/dL (3.4-5.0) Albumin/Globulin Ratio 1.0 (1.0-1.7) Test 06/23/18 07:11 Glucose (Fingerstick) 113 mg/dL (70-99) Medications Current Medications Aspirin (Children'S Aspirin) 324 mg 1X ONCE PO Last administered on 06/21/18at 16:02; Start 06/21/18 at 16:00; Stop 06/21/18 at 16:25; Status DC Enoxaparin Sodium (Lovenox 100mg Syringe) 100 mg 1X ONCE SQ Last administered on 06/21/18at 17:36; Start 06/21/18 at 17:00; Stop 06/22/18 at 11:50; Status DC Magnesium Oxide (Magnesium Oxide) 800 mg 1X ONCE PO Last administered on 06/21/18at 17:34; Start 06/21/18 at 17:00; Stop 06/21/18 at 17:07; Status DC Labetalol HCl (Normodyne Iv Push) 20 mg PRN Q2HR PRN IVP HYPERTENSION, SEE COMMENTS; Start 06/21/18 at 17:00 Sodium Chloride 500 ml @ 500 mls/hr 1X ONCE IV Last administered on 06/21/18at 18:35; Start 06/21/18 at 18:15; Stop 06/21/18 at 19:14; Status DC Enoxaparin Sodium (Lovenox Per Pharmacy Treatment Dosing) 1 each PRN DAILY PRN MC SEE COMMENTS; Start 06/21/18 at 21:00; Stop 06/22/18 at 02:46; Status DC Aspirin (Prudencio Aspirin) 325 mg DAILYWBKFT PO Last administered on 06/22/18at 08:20; Start 06/22/18 at 08:00; Stop 06/22/18 at 13:52; Status DC Carvedilol (Coreg) 3.125 mg BIDWMEALS PO Last administered on 06/23/18at 08:35; Start 06/22/18 at 08:00 Insulin Human Lispro (HumaLOG) 0-9 UNITS QIDACHS SQ Last administered on 06/22/18at 13:20; Start 06/21/18 at 21:00 Dextrose (Dextrose 50%-Water Syringe) 12.5 gm PRN Q15MIN PRN IV SEE COMMENTS; Start 06/21/18 at 21:00 Insulin Glargine (Lantus) 15 units QHS SQ Last administered on 06/22/18at 21:39; Start 06/21/18 at 21:00 Enoxaparin Sodium (Lovenox 120mg Syringe) 110 mg Q12HR SQ ; Start 06/22/18 at 09:00; Stop 06/22/18 at 09:00; Status DC Info (Anti-Coagulation Monitoring By Pharmacy) 1 each PRN DAILY PRN MC SEE COMMENTS Last administered on 06/22/18at 12:40; Start 06/21/18 at 21:00 Heparin Sodium/ Dextrose 500 ml @ 0 mls/hr CONT PRN IV SEE I/O RECORD Last administered on 06/22/18at 03:18; Start 06/22/18 at 02:30; Stop 06/22/18 at 12:17; Status DC Heparin Sodium (Porcine) (Heparin Sodium) 3,250 unit PRN Q6HRS PRN IV FOR UFH LEVEL LESS THAN 0.2; Start 06/22/18 at 02:30; Stop 06/22/18 at 11:16; Status DC Heparin Sodium (Porcine) (Heparin Sodium) 1,600 unit PRN Q6HRS PRN IV FOR UFH LEVEL 0.2 - 0.29; Start 06/22/18 at 02:30; Stop 06/22/18 at 11:16; Status DC Heparin Sodium (Porcine) (Heparin Sodium) 2,000 unit PRN Q6HRS PRN IV FOR PTT 24-27; Start 06/22/18 at 11:16; Stop 06/22/18 at 12:17; Status DC Heparin Sodium (Porcine) (Heparin Sodium) 1,000 unit PRN Q6HRS PRN IV FOR PTT 28-37; Start 06/22/18 at 11:16; Stop 06/22/18 at 12:17; Status DC Apixaban (Eliquis) 10 mg BID PO Last administered on 06/23/18at 08:36; Start 06/22/18 at 13:00; Stop 06/29/18 at 12:59 Aspirin (Ecotrin) 81 mg DAILYWBKFT PO Last administered on 06/23/18at 08:35; Start 06/23/18 at 08:00 Vitals/I & O Vital Sign - Last 24 Hours 06/22/18 06/22/18 06/22/18 06/22/18 11:22 15:00 17:33 19:05 Temp 97.7 97.8 98.1 97.7 97.8 98.1 Pulse 56 65 62 53 Resp 18 18 18 B/P (MAP) 126/62 (83) 157/73 (101) 125/66 130/62 (84) Pulse Ox 95 98 95 O2 Delivery Nasal Cannula Nasal Cannula Nasal Cannula O2 Flow Rate 2.0 2.0 2.0 06/22/18 06/22/18 06/23/18 06/23/18 20:00 23:40 03:05 07:00 Temp 97.5 97.6 97.8 97.5 97.6 97.8 Pulse 60 58 62 Resp 18 16 16 B/P (MAP) 135/67 (89) 135/61 (85) 129/63 (85) Pulse Ox 96 96 97 O2 Delivery Nasal Cannula Nasal Cannula Nasal Cannula Nasal Cannula O2 Flow Rate 2.0 2.0 2.0 2.0 06/23/18 06/23/18 08:00 08:35 Pulse 62 B/P (MAP) 129/63 O2 Delivery Room Air Intake and Output 06/22/18 06/22/18 06/23/18 15:00 23:00 07:00 Intake Total 662.52 ml 300 ml Output Total 450 ml 900 ml Balance 662.52 ml -450 ml -600 ml MICHELLE PARKER MD June 23, 2018 09:10
[2018-06-23] MEDS: ANTI-COAG MONITOR BY PHARMACY. MC PRN (10:34)
[2018-06-23 10:50] VITALS: BP 127/60
--- NOTE | 2018-06-23 10:53 | PDOC ---
PULMONARY PROGRESS NOTES Subjective no soa Vitals Vital Signs Date Time Temp Pulse Resp B/P (MAP) Pulse Ox O2 Delivery O2 Flow Rate FiO2 06/23/18 08:35 62 129/63 06/23/18 08:00 Room Air 06/23/18 07:00 97.8 16 97 2.0 97.8 General: Alert, No acute distress Lungs: Clear Cardiovascular: S1 Abdomen: Soft Neuro Exam: Alert Extremities: Other (1+edema) Labs Laboratory Tests Test 06/21/18 15:26 06/21/18 15:40 06/21/18 20:20 06/21/18 22:31 Urine Collection Type Unknown Urine Color Yellow Urine Clarity Clear Urine pH 5.5 Urine Specific [place] 1.020 Urine Protein Negative mg/dL (NEG-TRACE) Urine Glucose (UA) Negative mg/dL (NEG) Urine Ketones (Stick) Negative mg/dL (NEG) Urine Blood Negative (NEG) Urine Nitrite Negative (NEG) Urine Bilirubin Negative (NEG) Urine Urobilinogen Dipstick 0.2 mg/dL (0.2 mg/dL) Urine Leukocyte Esterase Negative (NEG) Urine RBC Occ /HPF (0-2) Urine WBC 0 /HPF (0-4) Urine Squamous Epithelial Cells Occ /LPF Urine Bacteria 0 /HPF (0-FEW) Urine Mucus Mod /LPF White Blood Count 7.9 x10^3/uL (4.0-11.0) Red Blood Count 3.95 x10^6/uL (4.30-5.70) Hemoglobin 12.3 g/dL (13.0-17.5) Hematocrit 36.1 % (39.0-53.0) Mean Corpuscular Volume 91 fL (79-100) Mean Corpuscular Hemoglobin 31 pg (25-35) Mean Corpuscular Hemoglobin Concent 34 g/dL (31-37) Red Cell Distribution Width 13.8 % (11.5-14.5) Platelet Count 153 x10^3/uL (140-400) Neutrophils (%) (Auto) 76 % (31-73) Lymphocytes (%) (Auto) 13 % (24-48) Monocytes (%) (Auto) 8 % (0-9) Eosinophils (%) (Auto) 3 % (0-3) Basophils (%) (Auto) 0 % (0-3) Neutrophils # (Auto) 6.0 x10^3uL (1.8-7.7) Lymphocytes # (Auto) 1.0 x10^3/uL (1.0-4.8) Monocytes # (Auto) 0.6 x10^3/uL (0.0-1.1) Eosinophils # (Auto) 0.2 x10^3/uL (0.0-0.7) Basophils # (Auto) 0.0 x10^3/uL (0.0-0.2) D-Dimer (Mindy) 19.67 ug/mlFEU (0.00-0.50) Sodium Level 142 mmol/L (136-145) Potassium Level 5.0 mmol/L (3.5-5.1) Chloride Level 105 mmol/L (98-107) Carbon Dioxide Level 24 mmol/L (21-32) Anion Gap 13 (6-14) Blood Urea Nitrogen 27 mg/dL (8-26) Creatinine 2.0 mg/dL (0.7-1.3) Estimated GFR (Cockcroft-Gault) 39.1 BUN/Creatinine Ratio 14 (6-20) Glucose Level 206 mg/dL (70-99) Calcium Level 9.0 mg/dL (8.5-10.1) Magnesium Level 1.7 mg/dL (1.8-2.4) Total Bilirubin 0.7 mg/dL (0.2-1.0) Aspartate Amino Transf (AST/SGOT) 29 U/L (15-37) Alanine Aminotransferase (ALT/SGPT) 36 U/L (16-63) Alkaline Phosphatase 47 U/L (46-116) Troponin I Quantitative 0.156 ng/mL (0.000-0.055) 0.433 ng/mL (0.000-0.055) GI-Rpj-U-Type Natriuretic Peptide 77 pg/mL (0-449) Total Protein 6.6 g/dL (6.4-8.2) Albumin 3.5 g/dL (3.4-5.0) Albumin/Globulin Ratio 1.1 (1.0-1.7) Thyroid Stimulating Hormone (TSH) 2.365 uIU/mL (0.358-3.74) Glucose (Fingerstick) 182 mg/dL (70-99) Test 5/14/19 23:10 06/22/18 03:15 06/22/18 08:17 06/22/18 09:05 Troponin I Quantitative 0.469 ng/mL (0.000-0.055) Sodium Level 144 mmol/L (136-145) Potassium Level 4.5 mmol/L (3.5-5.1) Chloride Level 107 mmol/L (98-107) Carbon Dioxide Level 24 mmol/L (21-32) Anion Gap 13 (6-14) Blood Urea Nitrogen 31 mg/dL (8-26) Creatinine 2.0 mg/dL (0.7-1.3) Estimated GFR (Cockcroft-Gault) 39.1 Glucose Level 163 mg/dL (70-99) Hemoglobin A1c 8.6 % (4.8-5.6) Calcium Level 8.4 mg/dL (8.5-10.1) Magnesium Level 1.8 mg/dL (1.8-2.4) Triglycerides Level 134 mg/dL (0-150) Cholesterol Level 104 mg/dL (0-200) LDL Cholesterol, Calculated 46 mg/dL (0-100) VLDL Cholesterol, Calculated 27 mg/dL (0-40) Non-HDL Cholesterol Calculated 73 mg/dL (0-129) HDL Cholesterol 31 mg/dL (40-60) Cholesterol/HDL Ratio Glucose (Fingerstick) 173 mg/dL (70-99) Activated Partial Thromboplast Time > 150 SEC (24-38) Heparin Anti-Xa Act, Unfractionated > 1.10 IU/mL (0.30-0.70) Test 06/22/18 11:34 06/22/18 16:58 06/22/18 21:17 06/23/18 04:40 Glucose (Fingerstick) 153 mg/dL (70-99) 77 mg/dL (70-99) 129 mg/dL (70-99) White Blood Count 6.2 x10^3/uL (4.0-11.0) Red Blood Count 3.55 x10^6/uL (4.30-5.70) Hemoglobin 11.0 g/dL (13.0-17.5) Hematocrit 32.5 % (39.0-53.0) Mean Corpuscular Volume 92 fL (79-100) Mean Corpuscular Hemoglobin 31 pg (25-35) Mean Corpuscular Hemoglobin Concent 34 g/dL (31-37) Red Cell Distribution Width 14.3 % (11.5-14.5) Platelet Count 148 x10^3/uL (140-400) Neutrophils (%) (Auto) 53 % (31-73) Lymphocytes (%) (Auto) 29 % (24-48) Monocytes (%) (Auto) 7 % (0-9) Eosinophils (%) (Auto) 10 % (0-3) Basophils (%) (Auto) 1 % (0-3) Neutrophils # (Auto) 3.3 x10^3uL (1.8-7.7) Lymphocytes # (Auto) 1.8 x10^3/uL (1.0-4.8) Monocytes # (Auto) 0.5 x10^3/uL (0.0-1.1) Eosinophils # (Auto) 0.6 x10^3/uL (0.0-0.7) Basophils # (Auto) 0.0 x10^3/uL (0.0-0.2) Sodium Level 143 mmol/L (136-145) Potassium Level 4.4 mmol/L (3.5-5.1) Chloride Level 108 mmol/L (98-107) Carbon Dioxide Level 26 mmol/L (21-32) Anion Gap 9 (6-14) Blood Urea Nitrogen 23 mg/dL (8-26) Creatinine 1.5 mg/dL (0.7-1.3) Estimated GFR (Cockcroft-Gault) 54.5 BUN/Creatinine Ratio 15 (6-20) Glucose Level 124 mg/dL (70-99) Calcium Level 8.3 mg/dL (8.5-10.1) Total Bilirubin 0.3 mg/dL (0.2-1.0) Aspartate Amino Transf (AST/SGOT) 23 U/L (15-37) Alanine Aminotransferase (ALT/SGPT) 27 U/L (16-63) Alkaline Phosphatase 38 U/L (46-116) Total Protein 5.7 g/dL (6.4-8.2) Albumin 2.9 g/dL (3.4-5.0) Albumin/Globulin Ratio 1.0 (1.0-1.7) Test 06/23/18 07:11 Glucose (Fingerstick) 113 mg/dL (70-99) Laboratory Tests Test 06/22/18 11:34 06/22/18 16:58 06/22/18 21:17 06/23/18 04:40 Glucose (Fingerstick) 153 mg/dL (70-99) 77 mg/dL (70-99) 129 mg/dL (70-99) White Blood Count 6.2 x10^3/uL (4.0-11.0) Red Blood Count 3.55 x10^6/uL (4.30-5.70) Hemoglobin 11.0 g/dL (13.0-17.5) Hematocrit 32.5 % (39.0-53.0) Mean Corpuscular Volume 92 fL (79-100) Mean Corpuscular Hemoglobin 31 pg (25-35) Mean Corpuscular Hemoglobin Concent 34 g/dL (31-37) Red Cell Distribution Width 14.3 % (11.5-14.5) Platelet Count 148 x10^3/uL (140-400) Neutrophils (%) (Auto) 53 % (31-73) Lymphocytes (%) (Auto) 29 % (24-48) Monocytes (%) (Auto) 7 % (0-9) Eosinophils (%) (Auto) 10 % (0-3) Basophils (%) (Auto) 1 % (0-3) Neutrophils # (Auto) 3.3 x10^3uL (1.8-7.7) Lymphocytes # (Auto) 1.8 x10^3/uL (1.0-4.8) Monocytes # (Auto) 0.5 x10^3/uL (0.0-1.1) Eosinophils # (Auto) 0.6 x10^3/uL (0.0-0.7) Basophils # (Auto) 0.0 x10^3/uL (0.0-0.2) Sodium Level 143 mmol/L (136-145) Potassium Level 4.4 mmol/L (3.5-5.1) Chloride Level 108 mmol/L (98-107) Carbon Dioxide Level 26 mmol/L (21-32) Anion Gap 9 (6-14) Blood Urea Nitrogen 23 mg/dL (8-26) Creatinine 1.5 mg/dL (0.7-1.3) Estimated GFR (Cockcroft-Gault) 54.5 BUN/Creatinine Ratio 15 (6-20) Glucose Level 124 mg/dL (70-99) Calcium Level 8.3 mg/dL (8.5-10.1) Total Bilirubin 0.3 mg/dL (0.2-1.0) Aspartate Amino Transf (AST/SGOT) 23 U/L (15-37) Alanine Aminotransferase (ALT/SGPT) 27 U/L (16-63) Alkaline Phosphatase 38 U/L (46-116) Total Protein 5.7 g/dL (6.4-8.2) Albumin 2.9 g/dL (3.4-5.0) Albumin/Globulin Ratio 1.0 (1.0-1.7) Test 06/23/18 07:11 Glucose (Fingerstick) 113 mg/dL (70-99) Comments CT CHEST IMPRESSION: 1. No evidence of suspicious pulmonary mass. There is noncalcific pulmonary nodules in the right middle lobe and right lower lobe that are indeterminate and follow-up imaging may be warranted to ensure stability. 2. Evaluation for pulmonary embolus is limited in the absence of contrast material. There is some heterogeneous high density within the main lobar pulmonary arteries and right main pulmonary artery that is suspicious for PE and possible saddle embolus. Please see the CT scan dated same day for further information. 3. Coronary artery calcifications with calcification of the left atrial appendage. 4. Generalized sclerotic change throughout the visualized osseous structures, nonspecific. Electronically signed by: Jong Garcia MD (06/22/2018 3:26 PM) [id number] Impression . IMPRESSION: 1.Recurrent pulmonary embolism and chronic deep venous thrombosis in a patient who has history of deep venous thrombosis and pulmonary embolism, unprovoked about 5-6 years ago. Probably risk factor includes immobilization due to his peripheral neuropathy. He has no known cancers. His V/Q scan is consistent with high probability for pulmonary embolism with bilateral mismatched perfusion defects and his venous Dopplers are showing subacute clot in the distal superficial femoral vein and popliteal vein on the right side. 2. Tiny 4-5 mm nodule in right lung. non specific. repeat ct in 9 months Plan . 1. The patient would need lifelong anticoagulation. 2. Follow up venous Dopplers and V/Q scan about 4-6 weeks. 3. F/U CT chest in 9 months for nodules. f/u VQ, dopplers in 6 weeks 4. Eliquis lifelong 5. Mildly increased troponin is probably related to right ventricular ischemia. 6. f/u in august with STANLEY Smith MD June 23, 2018 10:53
[2018-06-23] MEDS ORDERED: GABA-585 PO (10:58)
[2018-06-23] MEDS ORDERED: SIMV40TA3 PO (10:58)
[2018-06-23] MEDS ORDERED: VITA400C36 PO (10:58)
[2018-06-23] MEDS ORDERED: FURO20TA3 PO (10:58)
[2018-06-23] MEDS ORDERED: ASPI-630 PO (10:58)
[2018-06-23] MEDS ORDERED: OMEG1CAP38 PO (10:58)
[2018-06-23] MEDS ORDERED: INSU100I13 SQ ×2 (10:58→12:58)
[2018-06-23] MEDS ORDERED: SILV20CR14 TP (10:58)
[2018-06-23] MEDS ORDERED: SAXA5TAB PO (10:58)
[2018-06-23] MEDS ORDERED: INSU100I17 SQ (10:58)
[2018-06-23] MEDS ORDERED: ASCO500T3 PO (10:58)
[2018-06-23] MEDS ORDERED: LISI-334 PO (10:58)
[2018-06-23] MEDS ORDERED: CHOL10003 PO (10:58)
[2018-06-23] MEDS ORDERED: ALLO100T PO (10:58)
--- NOTE | 2018-06-23 12:51 | PDOC3 ---
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 This could be related to artifact or a developing lung nodule. Suggest short-term follow-up PA and lateral exam to ensure stability/resolution Bilateral unmatched perfusion defects, worse on the right, compatible with pulmonary emboli. diabetes a1c =8.6 plan cardiology consult CV workup cvc admit PULM CONSULT ELIQUIS 10MG PO BID X 7 DAYS, THEN 5 MG PO BID The patient WILL need lifelong anticoagulation. Follow up venous Dopplers and V/Q scan about 4-6 weeks. Ischemic workup will be considered as an outpt given his cardiac risk factors. Will monitor PAD as an outpt. Follow up with Dr. Gambino on August 12 at 9:30 AM ADA DIET, SEE PCP NEXT WEEK, Begin lantus 15 units sq q hs Vitals Vitals Vital Signs Date Time Temp Pulse Resp B/P (MAP) Pulse Ox O2 Delivery O2 Flow Rate FiO2 06/23/18 08:35 62 129/63 06/23/18 08:00 Room Air 06/23/18 07:00 97.8 16 97 2.0 97.8 Physical Exam General: Alert, Oriented X3, Cooperative, No acute distress Heart: Regular rate (SR with first degree AV block. ), Normal S1, Other (2/6 systolic murmur to LLS border) Lungs: Clear Abdomen: Normal bowel sounds, Soft Extremities: No clubbing, No cyanosis, No edema, Normal pulses Skin: No breakdown, No significant lesion FINAL DIAGNOSIS Problems Medical Problems: (1) Chest pain Status: Acute (2) Dizziness Status: Acute (3) Elevated troponin Status: Acute Brief Hospital Course Mr. Dietz is a 82 old [sex] who presented with [ acute pulmonary embolus] CONDITION AT DISCHARGE: Improved Discharge Medications Current Medications Aspirin (Children'S Aspirin) 324 mg 1X ONCE PO Last administered on 06/21/18at 16:02; Start 06/21/18 at 16:00; Stop 06/21/18 at 16:25; Status DC Enoxaparin Sodium (Lovenox 100mg Syringe) 100 mg 1X ONCE SQ Last administered on 06/21/18at 17:36; Start 06/21/18 at 17:00; Stop 06/22/18 at 11:50; Status DC Magnesium Oxide (Magnesium Oxide) 800 mg 1X ONCE PO Last administered on 06/21/18at 17:34; Start 06/21/18 at 17:00; Stop 06/21/18 at 17:07; Status DC Labetalol HCl (Normodyne Iv Push) 20 mg PRN Q2HR PRN IVP HYPERTENSION, SEE COMMENTS; Start 06/21/18 at 17:00 Sodium Chloride 500 ml @ 500 mls/hr 1X ONCE IV Last administered on 06/21/18at 18:35; Start 06/21/18 at 18:15; Stop 06/21/18 at 19:14; Status DC Enoxaparin Sodium (Lovenox Per Pharmacy Treatment Dosing) 1 each PRN DAILY PRN MC SEE COMMENTS; Start 06/21/18 at 21:00; Stop 06/22/18 at 02:46; Status DC Aspirin (Prudencio Aspirin) 325 mg DAILYWBKFT PO Last administered on 06/22/18at 08:20; Start 06/22/18 at 08:00; Stop 06/22/18 at 13:52; Status DC Carvedilol (Coreg) 3.125 mg BIDWMEALS PO Last administered on 06/23/18at 08:35; Start 06/22/18 at 08:00 Insulin Human Lispro (HumaLOG) 0-9 UNITS QIDACHS SQ Last administered on at 12:29; Start 06/21/18 at 21:00 Dextrose (Dextrose 50%-Water Syringe) 12.5 gm PRN Q15MIN PRN IV SEE COMMENTS; Start 06/21/18 at 21:00 Insulin Glargine (Lantus) 15 units QHS SQ Last administered on 06/22/18at 21:39; Start 06/21/18 at 21:00 Enoxaparin Sodium (Lovenox 120mg Syringe) 110 mg Q12HR SQ ; Start 06/22/18 at 09:00; Stop 06/22/18 at 09:00; Status DC Info (Anti-Coagulation Monitoring By Pharmacy) 1 each PRN DAILY PRN MC SEE COMMENTS Last administered on 06/23/18at 10:34; Start 06/21/18 at 21:00 Heparin Sodium/ Dextrose 500 ml @ 0 mls/hr CONT PRN IV SEE I/O RECORD Last administered on 06/22/18at 03:18; Start 06/22/18 at 02:30; Stop 06/22/18 at 12:17; Status DC Heparin Sodium (Porcine) (Heparin Sodium) 3,250 unit PRN Q6HRS PRN IV FOR UFH LEVEL LESS THAN 0.2; Start 06/22/18 at 02:30; Stop 06/22/18 at 11:16; Status DC Heparin Sodium (Porcine) (Heparin Sodium) 1,600 unit PRN Q6HRS PRN IV FOR UFH LEVEL 0.2 - 0.29; Start 06/22/18 at 02:30; Stop 06/22/18 at 11:16; Status DC Heparin Sodium (Porcine) (Heparin Sodium) 2,000 unit PRN Q6HRS PRN IV FOR PTT 24-27; Start 06/22/18 at 11:16; Stop 06/22/18 at 12:17; Status DC Heparin Sodium (Porcine) (Heparin Sodium) 1,000 unit PRN Q6HRS PRN IV FOR PTT 28-37; Start 06/22/18 at 11:16; Stop 06/22/18 at 12:17; Status DC Apixaban (Eliquis) 10 mg BID PO Last administered on 06/23/18at 08:36; Start 06/22/18 at 13:00; Stop 06/29/18 at 12:59 Aspirin (Ecotrin) 81 mg DAILYWBKFT PO Last administered on 06/23/18at 08:35; Start 06/23/18 at 08:00 Apixaban (Eliquis) 5 mg BID PO ; Start 06/29/18 at 21:00 Active Scripts Active Reported Onglyza (Saxagliptin Hcl) 5 Mg Tablet 1 Tab PO DAILY Simvastatin 40 Mg Tablet 1 Tab PO QHS Aspirin 81 Mg Tab.chew 1 Tab PO DAILY Gabapentin (Gabapentin) 100 Mg Capsule 100 Mg PO QID Allopurinol 100 Mg Tablet 1 Tab PO DAILY Vitamin D3 (Cholecalciferol (Vitamin D3)) 1,000 Unit Tablet 2,000 Unit PO DAILY Silvadene (Silver Sulfadiazine) 20 Gm Cream..g. 1 Rhiannon TP BID [place] 3 Fish Oil Softgel ([place]-3 Fatty Acids/Fish Oil) 1 Each Capsule.dr 1 Each PO TID Vitamin E (Vitamin E Mixed) 400 Unit Capsule 400 Unit PO DAILY Ascorbic Acid 500 Mg Tablet 500 Mg PO DAILY Lisinopril 20 Mg Tablet 1 Tab PO DAILY Novolog Flexpen (Insulin Aspart) 100 Unit/1 Ml Insuln.pen 20 Unit SQ BIDAC Lantus Solostar (Insulin Glargine,Hum.rec.anlog) 100 Unit/1 Ml Insuln.pen 30 Unit SQ QHS Furosemide 20 Mg Tablet 10 Mg PO DAILY Vital Signs Vital Signs Date Time Temp Pulse Resp B/P (MAP) Pulse Ox O2 Delivery O2 Flow Rate FiO2 06/23/18 10:50 97.9 58 16 127/60 (82) 91 Room Air 97.9 06/23/18 07:00 2.0 Labs Laboratory Tests Test 06/21/18 15:26 06/21/18 15:40 06/21/18 20:20 06/21/18 22:31 Urine Collection Type Unknown Urine Color Yellow Urine Clarity Clear Urine pH 5.5 Urine Specific [place] 1.020 Urine Protein Negative mg/dL (NEG-TRACE) Urine Glucose (UA) Negative mg/dL (NEG) Urine Ketones (Stick) Negative mg/dL (NEG) Urine Blood Negative (NEG) Urine Nitrite Negative (NEG) Urine Bilirubin Negative (NEG) Urine Urobilinogen Dipstick 0.2 mg/dL (0.2 mg/dL) Urine Leukocyte Esterase Negative (NEG) Urine RBC Occ /HPF (0-2) Urine WBC 0 /HPF (0-4) Urine Squamous Epithelial Cells Occ /LPF Urine Bacteria 0 /HPF (0-FEW) Urine Mucus Mod /LPF White Blood Count 7.9 x10^3/uL (4.0-11.0) Red Blood Count 3.95 x10^6/uL (4.30-5.70) Hemoglobin 12.3 g/dL (13.0-17.5) Hematocrit 36.1 % (39.0-53.0) Mean Corpuscular Volume 91 fL (79-100) Mean Corpuscular Hemoglobin 31 pg (25-35) Mean Corpuscular Hemoglobin Concent 34 g/dL (31-37) Red Cell Distribution Width 13.8 % (11.5-14.5) Platelet Count 153 x10^3/uL (140-400) Neutrophils (%) (Auto) 76 % (31-73) Lymphocytes (%) (Auto) 13 % (24-48) Monocytes (%) (Auto) 8 % (0-9) Eosinophils (%) (Auto) 3 % (0-3) Basophils (%) (Auto) 0 % (0-3) Neutrophils # (Auto) 6.0 x10^3uL (1.8-7.7) Lymphocytes # (Auto) 1.0 x10^3/uL (1.0-4.8) Monocytes # (Auto) 0.6 x10^3/uL (0.0-1.1) Eosinophils # (Auto) 0.2 x10^3/uL (0.0-0.7) Basophils # (Auto) 0.0 x10^3/uL (0.0-0.2) D-Dimer (Mindy) 19.67 ug/mlFEU (0.00-0.50) Sodium Level 142 mmol/L (136-145) Potassium Level 5.0 mmol/L (3.5-5.1) Chloride Level 105 mmol/L (98-107) Carbon Dioxide Level 24 mmol/L (21-32) Anion Gap 13 (6-14) Blood Urea Nitrogen 27 mg/dL (8-26) Creatinine 2.0 mg/dL (0.7-1.3) Estimated GFR (Cockcroft-Gault) 39.1 BUN/Creatinine Ratio 14 (6-20) Glucose Level 206 mg/dL (70-99) Calcium Level 9.0 mg/dL (8.5-10.1) Magnesium Level 1.7 mg/dL (1.8-2.4) Total Bilirubin 0.7 mg/dL (0.2-1.0) Aspartate Amino Transf (AST/SGOT) 29 U/L (15-37) Alanine Aminotransferase (ALT/SGPT) 36 U/L (16-63) Alkaline Phosphatase 47 U/L (46-116) Troponin I Quantitative 0.156 ng/mL (0.000-0.055) 0.433 ng/mL (0.000-0.055) MX-Amz-U-Type Natriuretic Peptide 77 pg/mL (0-449) Total Protein 6.6 g/dL (6.4-8.2) Albumin 3.5 g/dL (3.4-5.0) Albumin/Globulin Ratio 1.1 (1.0-1.7) Thyroid Stimulating Hormone (TSH) 2.365 uIU/mL (0.358-3.74) Glucose (Fingerstick) 182 mg/dL (70-99) Test 06/21/18 23:10 06/22/18 03:15 06/22/18 08:17 06/22/18 09:05 Troponin I Quantitative 0.469 ng/mL (0.000-0.055) Sodium Level 144 mmol/L (136-145) Potassium Level 4.5 mmol/L (3.5-5.1) Chloride Level 107 mmol/L (98-107) Carbon Dioxide Level 24 mmol/L (21-32) Anion Gap 13 (6-14) Blood Urea Nitrogen 31 mg/dL (8-26) Creatinine 2.0 mg/dL (0.7-1.3) Estimated GFR (Cockcroft-Gault) 39.1 Glucose Level 163 mg/dL (70-99) Hemoglobin A1c 8.6 % (4.8-5.6) Calcium Level 8.4 mg/dL (8.5-10.1) Magnesium Level 1.8 mg/dL (1.8-2.4) Triglycerides Level 134 mg/dL (0-150) Cholesterol Level 104 mg/dL (0-200) LDL Cholesterol, Calculated 46 mg/dL (0-100) VLDL Cholesterol, Calculated 27 mg/dL (0-40) Non-HDL Cholesterol Calculated 73 mg/dL (0-129) HDL Cholesterol 31 mg/dL (40-60) Cholesterol/HDL Ratio Glucose (Fingerstick) 173 mg/dL (70-99) Activated Partial Thromboplast Time > 150 SEC (24-38) Heparin Anti-Xa Act, Unfractionated > 1.10 IU/mL (0.30-0.70) Test 06/22/18 11:34 06/22/18 16:58 06/22/18 21:17 06/23/18 04:40 Glucose (Fingerstick) 153 mg/dL (70-99) 77 mg/dL (70-99) 129 mg/dL (70-99) White Blood Count 6.2 x10^3/uL (4.0-11.0) Red Blood Count 3.55 x10^6/uL (4.30-5.70) Hemoglobin 11.0 g/dL (13.0-17.5) Hematocrit 32.5 % (39.0-53.0) Mean Corpuscular Volume 92 fL (79-100) Mean Corpuscular Hemoglobin 31 pg (25-35) Mean Corpuscular Hemoglobin Concent 34 g/dL (31-37) Red Cell Distribution Width 14.3 % (11.5-14.5) Platelet Count 148 x10^3/uL (140-400) Neutrophils (%) (Auto) 53 % (31-73) Lymphocytes (%) (Auto) 29 % (24-48) Monocytes (%) (Auto) 7 % (0-9) Eosinophils (%) (Auto) 10 % (0-3) Basophils (%) (Auto) 1 % (0-3) Neutrophils # (Auto) 3.3 x10^3uL (1.8-7.7) Lymphocytes # (Auto) 1.8 x10^3/uL (1.0-4.8) Monocytes # (Auto) 0.5 x10^3/uL (0.0-1.1) Eosinophils # (Auto) 0.6 x10^3/uL (0.0-0.7) Basophils # (Auto) 0.0 x10^3/uL (0.0-0.2) Sodium Level 143 mmol/L (136-145) Potassium Level 4.4 mmol/L (3.5-5.1) Chloride Level 108 mmol/L (98-107) Carbon Dioxide Level 26 mmol/L (21-32) Anion Gap 9 (6-14) Blood Urea Nitrogen 23 mg/dL (8-26) Creatinine 1.5 mg/dL (0.7-1.3) Estimated GFR (Cockcroft-Gault) 54.5 BUN/Creatinine Ratio 15 (6-20) Glucose Level 124 mg/dL (70-99) Calcium Level 8.3 mg/dL (8.5-10.1) Total Bilirubin 0.3 mg/dL (0.2-1.0) Aspartate Amino Transf (AST/SGOT) 23 U/L (15-37) Alanine Aminotransferase (ALT/SGPT) 27 U/L (16-63) Alkaline Phosphatase 38 U/L (46-116) Total Protein 5.7 g/dL (6.4-8.2) Albumin 2.9 g/dL (3.4-5.0) Albumin/Globulin Ratio 1.0 (1.0-1.7) Test 06/23/18 07:11 06/23/18 11:18 Glucose (Fingerstick) 113 mg/dL (70-99) 176 mg/dL (70-99) Laboratory Tests Test 06/22/18 16:58 06/22/18 21:17 06/23/18 04:40 06/23/18 07:11 Glucose (Fingerstick) 77 mg/dL (70-99) 129 mg/dL (70-99) 113 mg/dL (70-99) White Blood Count 6.2 x10^3/uL (4.0-11.0) Red Blood Count 3.55 x10^6/uL (4.30-5.70) Hemoglobin 11.0 g/dL (13.0-17.5) Hematocrit 32.5 % (39.0-53.0) Mean Corpuscular Volume 92 fL (79-100) Mean Corpuscular Hemoglobin 31 pg (25-35) Mean Corpuscular Hemoglobin Concent 34 g/dL (31-37) Red Cell Distribution Width 14.3 % (11.5-14.5) Platelet Count 148 x10^3/uL (140-400) Neutrophils (%) (Auto) 53 % (31-73) Lymphocytes (%) (Auto) 29 % (24-48) Monocytes (%) (Auto) 7 % (0-9) Eosinophils (%) (Auto) 10 % (0-3) Basophils (%) (Auto) 1 % (0-3) Neutrophils # (Auto) 3.3 x10^3uL (1.8-7.7) Lymphocytes # (Auto) 1.8 x10^3/uL (1.0-4.8) Monocytes # (Auto) 0.5 x10^3/uL (0.0-1.1) Eosinophils # (Auto) 0.6 x10^3/uL (0.0-0.7) Basophils # (Auto) 0.0 x10^3/uL (0.0-0.2) Sodium Level 143 mmol/L (136-145) Potassium Level 4.4 mmol/L (3.5-5.1) Chloride Level 108 mmol/L (98-107) Carbon Dioxide Level 26 mmol/L (21-32) Anion Gap 9 (6-14) Blood Urea Nitrogen 23 mg/dL (8-26) Creatinine 1.5 mg/dL (0.7-1.3) Estimated GFR (Cockcroft-Gault) 54.5 BUN/Creatinine Ratio 15 (6-20) Glucose Level 124 mg/dL (70-99) Calcium Level 8.3 mg/dL (8.5-10.1) Total Bilirubin 0.3 mg/dL (0.2-1.0) Aspartate Amino Transf (AST/SGOT) 23 U/L (15-37) Alanine Aminotransferase (ALT/SGPT) 27 U/L (16-63) Alkaline Phosphatase 38 U/L (46-116) Total Protein 5.7 g/dL (6.4-8.2) Albumin 2.9 g/dL (3.4-5.0) Albumin/Globulin Ratio 1.0 (1.0-1.7) Test 06/23/18 11:18 Glucose (Fingerstick) 176 mg/dL (70-99) Allergies Allergies Coded Allergies Type Severity Reaction Last Updated Verified rosiglitazone Allergy Mild 06/22/18 Yes Disposition/Orders: D/C to Home Patient Instructions d/c planning 37 min MICHELLE PARKER MD June 23, 2018 12:51
[2018-06-23] MEDS ORDERED: APIX5TAB PO (12:58)
[2018-06-23] MEDS ORDERED: CARV3.1210 PO (12:58)
[2018-06-23] MEDS ORDERED: INSU100I11 SQ (12:58)
--- NOTE | 2018-06-23 12:59 | DISCH ---
DISCHARGE INSTRUCTIONS Condition on Discharge Condition on Discharge: Stable Activity After Discharge Activity Instructions for Disc: Activity as tolerated Lifting Instructions after Dis: No heavy lifting, No pulling or pushing Driving Instructions after Dis: Do not drive Weight Bearing Status after Di: As tolerated Diet after Discharge Diet after Discharge: Cardiac, Diabetic No Calorie Level Checks after Discharge Checks after discharge: Check blood press - daily Contacting the DRAriana after DC Call your doctor for: If your condition worsens MICHELLE PARKER MD June 23, 2018 12:59
--- NOTE | 2018-06-23 14:43 | NUR ---
Discharge Note: RAMESH PARRY Discharge instructions and discharge home medications reviewed with Patient and a copy given. All follow up appointments discussed with patient. All questions have been answered and understanding verbalized. All belongings taken with patient. The following instructions and handouts were given: New medications including Coreg and Eliquis, pulmonary embolus, DVT, and chest pain. Discontinued lines and drains: Peripheral IV intact. Patient discharged to Home or Self Care with Family Member via Wheelchair
[2018-06-29] MEDS ORDERED: APIXABAN 5 MG TABLET. PO SCH (21:00)
== END 2018-06-23 14:40 | disposition home or self-care (01) | DRG 175 ==
LOC: ER 15:12 → 2 SOUTH 16:50
PROVIDERS: ADMIT Internal Medicine; ATTEND Internal Medicine
DX: I26.99 Other pulmonary embolism without acute cor pulmonale (principal); I21.A1 Myocardial infarction type 2; I50.33 Acute on chronic diastolic (congestive) heart failure; N17.9 Acute kidney failure, unspecified; I13.0 Hypertensive heart and chronic kidney disease with heart failure and stage 1 through stage 4 chronic kidney disease, or unspecified chronic kidney disease; N18.4 Chronic kidney disease, stage 4 (severe); I25.110 Atherosclerotic heart disease of native coronary artery with unstable angina pectoris; M19.90 Unspecified osteoarthritis, unspecified site; M10.9 Gout, unspecified; E78.5 Hyperlipidemia, unspecified; J44.9 Chronic obstructive pulmonary disease, unspecified; G47.33 Obstructive sleep apnea (adult) (pediatric); K21.9 Gastro-esophageal reflux disease without esophagitis; E11.42 Type 2 diabetes mellitus with diabetic polyneuropathy; E11.22 Type 2 diabetes mellitus with diabetic chronic kidney disease; I44.0 Atrioventricular block, first degree; E66.9 Obesity, unspecified; Z68.33 Body mass index [BMI] 33.0-33.9, adult; Z79.4 Long term (current) use of insulin; Z86.718 Personal history of other venous thrombosis and embolism; Z87.891 Personal history of nicotine dependence; Z86.711 Personal history of pulmonary embolism; Z83.3 Family history of diabetes mellitus
CPT/HCPCS: 36415; 71045; 71250; 78582; 80048; 80053; 80061; 81001; 82962; 83036; 83735; 83880; 84443; 84484; 85025; 85379; 85520; 85730; 93005; 93306; 93923; 93971; 96360; 96372; 96374; A9540; A9558; J1650; J1815; J7040; 99285-25

== ENCOUNTER → 2018-08-19 | Outpatient (CLI) | payer MEDICARE, OTHER ==
[~2018-08-19] MED LIST: ALLO100T PO; APIX5TAB PO; ASCO500T3 PO; ASPI-630 PO; CARV3.1210 PO; CHOL10003 PO; FURO20TA3 PO; GABA-585 PO; INSU100I11 SQ; INSU100I13 SQ; INSU100I17 SQ; LISI-334 PO; OMEG1CAP38 PO; SAXA5TAB PO; SILV20CR14 TP; SIMV40TA3 PO; VITA400C36 PO
--- NOTE | 2018-08-19 10:21 | RAD ---
Chest radiograph 08/19/2018 12:00 AM INDICATION: Chest pain, blood clots in legs COMPARISON: June 21, 2018 TECHNIQUE: Frontal and lateral views of the chest are provided. FINDINGS: The cardiomediastinal silhouette is within normal limits. There are no pleural effusions. There is no pulmonary vascular congestion. There is no pneumothorax. The lungs are clear. No significant osseous abnormality is identified. IMPRESSION: No acute cardiopulmonary process. Electronically signed by: Shawnee Hollingsworth MD (08/19/2018 10:18 AM) [id number]
--- NOTE | 2018-08-19 11:49 | RAD ---
Examination: LUNG VENT/PERFUSION SCAN(VQ) History: History of pulmonary embolus abdomen June 2018. COPD. Comparison/Correlation: 06/22/2018 VQ scan Findings: 30.7 mCi xenon-133 gas was administered. Delayed washout of radiotracer compatible COPD is noted. No suspicious ventilation defect. 5.5 mCi technetium 99m MAA was intravenously administered for purposes of perfusion imaging. There is relatively less uptake of radiotracer involving the right upper lobe but this is notably improved since the prior exam. No definite left lung mismatches currently seen. There is no definite or new region of mismatch defect.. Impression: Notable improvement in pulmonary perfusion is notable since the prior high probability V/Q examination of 06/22/2018. No new mismatch defect to suggest new high probability findings. Within the context of improvement since the prior exam, the current exam can be considered as low probability. Consider continued follow-up to resolution. Electronically signed by: Steve Dia MD (08/19/2018 11:47 AM) [facility]
--- NOTE | 2018-08-19 11:55 | RAD ---
Examination: VENOUS LOWER EXT BILATERAL History: Chest pain, history of DVT Comparison/Correlation: 06/21/2018 FINDINGS: Bilateral lower extremity duplex venous ultrasound exam was performed. Grayscale, color Doppler, and spectral Doppler imaging was performed. Compression and augmentation was performed. The right common femoral vein, superficial femoral vein, and greater saphenous vein are normal with no evidence of deep venous thrombus. Partially occlusive intermediate echogenicity thrombus involves the right popliteal vein. Posterior tibial veins are unremarkable. Incidental note is made of benign-appearing right groin lymph node measuring up to 2.5 cm in maximum diameter. The left common femoral vein, superficial femoral vein, popliteal vein, and greater saphenous vein are normal with no evidence of deep venous thrombus. Posterior tibial and peroneal veins are unremarkable. Normal compressibility and augmentation is evident. IMPRESSION: Improvement in known right lower extremity DVT. Partially occlusive right popliteal venous thrombus is increased in echogenicity and smaller in size compared to previous exam. Previously evident thrombus component involving the superficial femoral vein has resolved. Electronically signed by: Steve Dia MD (08/19/2018 11:52 AM) [facility]
== END | disposition home or self-care (01) ==
LOC: US 07:51
PROVIDERS: ATTEND Internal Medicine Critical Care Medicine
DX: I82.491 Acute embolism and thrombosis of other specified deep vein of right lower extremity (principal); J44.9 Chronic obstructive pulmonary disease, unspecified; I10 Essential (primary) hypertension; E11.9 Type 2 diabetes mellitus without complications; Z79.01 Long term (current) use of anticoagulants
CPT/HCPCS: 71046; 78582; 93970; 96374; A9540; A9558

== ENCOUNTER → 2018-12-02 | Outpatient (CLI) | payer MEDICARE, OTHER ==
--- NOTE | 2018-12-02 16:41 | KCIC ---
EXAM: Right great toe, 3 views. HISTORY: Ulcer. COMPARISON: None. FINDINGS: 3 views of the right great toe are obtained. There is a soft tissue defect along the medial aspect of the proximal great toe, consistent with a reported ulcer or recent debridement. There is first metatarsal phalangeal joint space narrowing with subchondral cyst formation and marginal spurring. There is no convincing radiographic evidence of osteomyelitis in this location. There is a small lucency involving the base of the third proximal phalanx which may be a degenerative subchondral cyst and is also not typical in appearance for osteoarthritis. There are vascular calcifications. IMPRESSION: 1. Suspected soft tissue ulcer or defect due to recent wound debridement along the medial proximal great toe. No foreign body is seen. No convincing osteomyelitis is seen. 2. Mild first metatarsal phalangeal joint osteoarthritis and possible tiny subchondral cyst at the base of the third proximal phalanx. Electronically signed by: Lilian Estrada MD (12/02/2018 4:38 PM) [id number]
== END | disposition home or self-care (01) ==
LOC: KCIC 09:13
PROVIDERS: ATTEND Family Medicine
DX: M19.071 Primary osteoarthritis, right ankle and foot (principal); L97.519 Non-pressure chronic ulcer of other part of right foot with unspecified severity
CPT/HCPCS: 73660

== ENCOUNTER → 2018-12-23 | Outpatient (CLI) | payer MEDICARE, OTHER ==
[~2018-12-23] MED LIST changes: +SIMV40TA18 PO; -SIMV40TA3 PO; +VITA-8 PO; -VITA400C36 PO
--- NOTE | 2018-12-23 11:39 | RAD ---
Bilateral lower extremity arterial ultrasound History: Bilateral leg pain, history of healed right toe ulcer Findings: Multiple grayscale, color, and duplex spectral analysis sonographic images were acquired of the lower extremity arteries bilaterally. There are no previous similar exams. There is monophasic waveform of the right anterior tibial artery, otherwise biphasic waveforms of the remainder of the right lower extremities arteries. There is relative increased velocity of the right common femoral artery. There is significant increased velocity of the left popliteal artery, lower velocities of the distal left calf arteries. On the left, there are triphasic and biphasic waveforms to the level of the distal superficial femoral artery, otherwise monophasic waveforms distally. There is diffuse moderate plaque bilaterally. Velocities in cm/sec: RIGHT Common femoral artery 168 Profunda femoris artery 129 Proximal SFA 141 Mid SFA 86 Distal SFA 92 Popliteal artery 66 Posterior tibial artery 55 proximally and 82 distally Peroneal artery 56 Anterior tibial artery 129 Dorsalis pedis artery 41 LEFT: Common femoral artery 137 Profunda femoris artery 94 Proximal SFA 135 Mid SFA 71 Distal SFA 34 Popliteal artery 448 Posterior tibial artery 22 proximally and 25 distally Peroneal artery 15 Anterior tibial artery 24 Dorsalis pedis artery 12 Impression: 1. 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 There is diffuse plaque bilaterally. Electronically signed by: Shan Rainey MD (12/23/2018 11:36 AM) [id number]
== END ==
LOC: US 07:48
PROVIDERS: ATTEND Family Medicine
DX: I70.293 Other atherosclerosis of native arteries of extremities, bilateral legs (principal); L97.519 Non-pressure chronic ulcer of other part of right foot with unspecified severity; L97.501 Non-pressure chronic ulcer of other part of unspecified foot limited to breakdown of skin; E11.51 Type 2 diabetes mellitus with diabetic peripheral angiopathy without gangrene; I12.9 Hypertensive chronic kidney disease with stage 1 through stage 4 chronic kidney disease, or unspecified chronic kidney disease; J44.9 Chronic obstructive pulmonary disease, unspecified; E11.22 Type 2 diabetes mellitus with diabetic chronic kidney disease; N18.4 Chronic kidney disease, stage 4 (severe); M19.90 Unspecified osteoarthritis, unspecified site; E78.5 Hyperlipidemia, unspecified; Z79.4 Long term (current) use of insulin; Z87.891 Personal history of nicotine dependence
CPT/HCPCS: 93925

== ENCOUNTER → 2018-12-23 | Outpatient (CLI) | payer MEDICARE, OTHER ==
--- NOTE | 2018-12-23 12:54 | RAD ---
CT CHEST WO CONTRAST Indication: Lung nodule Technique: Noncontrast CT imaging was performed of the chest, multiplanar reconstruction images submitted. One or more of the following individualized dose reduction techniques were utilized for this examination: 1. Automated exposure control 2. Adjustment of the mA and/or kV according to patient size 3. Use of iterative reconstruction technique. Comparison: June 22, 2018 Findings: Small 5 mm right middle lobe nodule best seen sagittal images 107 series 10 is stable. There are some calcified nodules of the right middle lobe. Tiny nodule of the right lower lobe near the major fissure about 3 mm sagittal image 112 series 10 is stable. 3 mm superior right lower lobe nodule image 106 series 10 is stable. Small 3-4 mm subpleural nodule left lower lobe image 200 series 3 is similar. Small 3 mm right upper lobe nodule image 73 series 3 is stable. There is no new suspicious pulmonary nodularity. There is no new infiltrate, pleural or pericardial fluid, pneumothorax. There is coronary calcification. There is again prominent calcification of the left atrial appendage. Ectatic ascending thoracic aorta about 3.8 cm is stable. There is again bilateral gynecomastia. There is no new significant lymphadenopathy of the chest. There is again diffusely sclerotic appearance of the bones. IMPRESSION: 1. Small pulmonary nodules are stable, largest about 5 mm. If there are are increased risk factors for neoplasm, optional 12 follow-up could be performed as per revised Fleischner guidelines, no additional follow-up if low risk structures are neoplasm. 2. There is stable ectatic ascending thoracic aorta about 3.8 cm. There is coronary calcification. Electronically signed by: Shan Rainey MD (12/23/2018 12:51 PM) [facility]
== END | disposition home or self-care (01) ==
LOC: CT 07:54
PROVIDERS: ATTEND Internal Medicine Critical Care Medicine
DX: I77.810 Thoracic aortic ectasia (principal); R91.8 Other nonspecific abnormal finding of lung field; N62 Hypertrophy of breast; I25.10 Atherosclerotic heart disease of native coronary artery without angina pectoris
CPT/HCPCS: 71250

== ENCOUNTER 2019-01-10 16:28 | Emergency (ER) | payer MEDICARE, OTHER ==
[~2019-01-10] VITALS: Ht 180.3 cm; Wt 108.9 kg
[2019-01-10 18:42] LABS: BASO % 0 % (0-3); EOS # 0.2 x10^3/uL (0.0-0.7); EOS % 2 % (0-3); HEMATOCRIT 36.7 % (39.0-53.0); HEMOGLOBIN 12.4 g/dL (13.0-17.5); LYMPH # 1.2 x10^3/uL (1.0-4.8); LYMPH % 11 % (24-48); MEAN CORPUSCULAR HEMOGLOBIN 31 pg (25-35); MEAN CORPUSCULAR HGB CONC 34 g/dL (31-37); MEAN CORPUSCULAR VOLUME 91 fL (79-100); MONO # 0.9 x10^3/uL (0.0-1.1); MONO % 8 % (0-9); NEUT # 8.5 x10^3/uL (1.8-7.7); NEUT % 79 % (31-73); PLATELET COUNT 225 x10^3/uL (140-400); RED BLOOD COUNT 4.01 x10^6/uL (4.30-5.70); RED CELL DISTRIBUTION WIDTH 13.5 % (11.5-14.5); WHITE BLOOD COUNT 10.8 x10^3/uL (4.0-11.0)
[2019-01-10 18:56] LABS: CALCIUM 8.9 mg/dL (8.5-10.1); CREATININE 1.5 mg/dL (0.7-1.3); GFR 54.3; POTASSIUM 4.7 mmol/L (3.5-5.1)
[2019-01-10 19:01] LABS: ALBUMIN 3.3 g/dL (3.4-5.0); ALBUMIN/GLOBULIN RATIO 0.9 (1.0-1.7); C-REACTIVE PROTEIN 52.1 mg/L (0-3.3); TOTAL BILIRUBIN 0.7 mg/dL (0.2-1.0); TOTAL PROTEIN 7.1 g/dL (6.4-8.2)
[2019-01-10 19:07] LABS: BILIRUBIN,URINE NEGATIVE (NEG); CLARITY,URINE CLOUDY; COLOR,URINE YELLOW; NITRITE,URINE NEGATIVE (NEG); PH,URINE 5.5; PROTEIN,URINE NEGATIVE (NEG-TRACE); UROBILINOGEN,URINE 0.2 mg/dL (0.2 mg/dL)
[2019-01-10 19:18] LABS: BACTERIA,URINE 0 /HPF (0-FEW); RBC,URINE 0 /HPF (0-2); SQUAMOUS EPITHELIAL CELL,UR OCC /LPF; WBC,URINE 0 /HPF (0-4)
[2019-01-10] MEDS ORDERED: CONTRAST GIVEN. MC PRN (19:45)
[2019-01-10] MEDS ORDERED: IOHEXOL 300 MG/ML 100ML VIAL. IV ONE (20:00)
--- NOTE | 2019-01-10 20:07 | RAD ---
Exam: CT abdomen and pelvis with contrast INDICATION: Left lower quadrant pain TECHNIQUE: Sequential axial images through the abdomen and pelvis obtained following the administration of 60 mL of Omni 300 IV contrast. Sagittal and coronal reformatted images were reconstructed from the axial data and reviewed. Comparisons: None FINDINGS: Heart size is normal. No pericardial effusion. Visualized lung bases are clear. No pleural effusion. Liver, spleen, pancreas, gallbladder and adrenals are unremarkable. Kidneys a straight symmetric enhancement. No perinephric inflammation or hydronephrosis. No renal or ureteral calculi are identified. Bladder is decompressed not well evaluated. Prostate is not enlarged. Inflammatory changes surrounding the distal descending colon in the area of diverticulosis. No adjacent fluid collection or free air. The remainder of the large and small bowel are unremarkable. No obstruction. Appendix is not definitively identified. No free intra-abdominal air or fluid. No obstruction. Abdominal aorta has a normal course and caliber. Abdominal vasculature is patent. No enlarged abdominal lymph nodes are identified. No suspicious osseous lesions or acute fractures. IMPRESSION: Findings of acute diverticulitis at the distal descending colon. No evidence for perforation or adjacent abscess. Colonoscopy posttreatment to ensure no underlying lesion is recommended. Exposure: One or more of the following in the visualized dose reduction techniques were utilized for this examination: 1. Automated exposure control 2. Adjustment of the MA and/or KV according to patient size 3. Use of iterative of reconstructive technique Electronically signed by: Jv Hilario MD (01/10/2019 8:04 PM) [facility]
[2019-01-10] MEDS ORDERED: metroNIDAZOLE 500 MG TABLET PO ONE (20:30)
[2019-01-10 20:40] VITALS: BP 151/70
[2019-01-10] MEDS ORDERED: METR500T PO (20:52)
[2019-01-10] MEDS ORDERED: CIPR500T94 PO (20:52)
--- NOTE | 2019-01-10 20:53 | PHYS DOC ---
Past Medical History Past Medical History: Hypertension Additional Past Medical Histor: hyperlipidemia, DVT, PE Alcohol Use: None Drug Use: None Adult General Chief Complaint Chief Complaint: ABDOMINAL PAIN [facility] Patient is a 83 year old male who presents with intermittent suprapubic pain 2 days with constipation. Patient's currently pain-free. Pain initially reported as sharp and nonradiating. No fevers chills, nausea vomiting or sweats. No history of kidney stones, UTIs, diverticulitis. No prior abdominal surgeries. [] Review of Systems Review of Systems ROS as per HPI [] All other systems were reviewed and found to be within normal limits, except as documented in this note. Current Medications Current Medications Current Medications Medications (Trade) Dose Ordered Sig/Eugenio Start Time Stop Time Status Last Admin Dose Admin Info (CONTRAST GIVEN -- Rx MONITORING) 1 each PRN DAILY PRN 01/10/19 19:45 01/12/19 19:44 Iohexol (Omnipaque 300 Mg/ml) 60 ml 1X ONCE 01/10/19 20:00 01/10/19 20:01 DC 01/10/19 19:51 60 ML Levofloxacin (Levaquin) 500 mg 1X ONCE 01/10/19 20:30 01/10/19 20:31 DC 01/10/19 20:38 500 MG Metronidazole (Flagyl) 500 mg 1X ONCE 01/10/19 20:30 01/10/19 20:31 DC 01/10/19 20:38 500 MG Allergies Allergies Allergies Coded Allergies Type Severity Reaction Last Updated Verified rosiglitazone Allergy Intermediate 01/10/19 Yes Physical Exam Physical Exam Constitutional: Well developed, well nourished, no acute distress, non-toxic appearance. [] HENT: Normocephalic, atraumatic, bilateral external ears normal, oropharynx moist, nose normal. [] Eyes: PERRLA, EOMI,. [] Neck: Normal range of motion, no tenderness, supple. [] Cardiovascular:Heart rate regular rhythm. [] Lungs & Thorax: Bilateral breath sounds clear to auscultation [] Abdomen: Bowel sounds normal, soft, mild suprapubic pain/tenderness to palpation.. [] Skin: Warm, dry, no erythema, no rash. [] Back: No tenderness, no CVA tenderness. [] Extremities: No tenderness, no edema. [] Neurologic: Alert and oriented X 3, normal motor function, normal sensory function, no focal deficits noted. [] Psychologic: Affect normal, judgement normal, mood normal. [] Current Patient Data Vital Signs Vital Signs Date Time Temp Pulse Resp B/P (MAP) Pulse Ox O2 Delivery O2 Flow Rate FiO2 01/10/19 20:40 74 16 151/70 (97) 93 Room Air 01/10/19 18:04 98.3 98.3 Lab Values Laboratory Tests Test 01/10/19 18:30 01/10/19 19:00 White Blood Count 10.8 x10^3/uL (4.0-11.0) Red Blood Count 4.01 x10^6/uL (4.30-5.70) L Hemoglobin 12.4 g/dL (13.0-17.5) L Hematocrit 36.7 % (39.0-53.0) L Mean Corpuscular Volume 91 fL (79-100) Mean Corpuscular Hemoglobin 31 pg (25-35) Mean Corpuscular Hemoglobin Concent 34 g/dL (31-37) Red Cell Distribution Width 13.5 % (11.5-14.5) Platelet Count 225 x10^3/uL (140-400) Neutrophils (%) (Auto) 79 % (31-73) H Lymphocytes (%) (Auto) 11 % (24-48) L Monocytes (%) (Auto) 8 % (0-9) Eosinophils (%) (Auto) 2 % (0-3) Basophils (%) (Auto) 0 % (0-3) Neutrophils # (Auto) 8.5 x10^3/uL (1.8-7.7) H Lymphocytes # (Auto) 1.2 x10^3/uL (1.0-4.8) Monocytes # (Auto) 0.9 x10^3/uL (0.0-1.1) Eosinophils # (Auto) 0.2 x10^3/uL (0.0-0.7) Basophils # (Auto) 0.0 x10^3/uL (0.0-0.2) Sodium Level 140 mmol/L (136-145) Potassium Level 4.7 mmol/L (3.5-5.1) Chloride Level 104 mmol/L (98-107) Carbon Dioxide Level 29 mmol/L (21-32) Anion Gap 7 (6-14) Blood Urea Nitrogen 21 mg/dL (8-26) Creatinine 1.5 mg/dL (0.7-1.3) H Estimated GFR (Cockcroft-Gault) 54.3 BUN/Creatinine Ratio 14 (6-20) Glucose Level 128 mg/dL (70-99) H Calcium Level 8.9 mg/dL (8.5-10.1) Total Bilirubin 0.7 mg/dL (0.2-1.0) Aspartate Amino Transferase (AST) 16 U/L (15-37) Alanine Aminotransferase (ALT) 15 U/L (16-63) L Alkaline Phosphatase 47 U/L (46-116) C-Reactive Protein, Quantitative 52.1 mg/L (0-3.3) H Total Protein 7.1 g/dL (6.4-8.2) Albumin 3.3 g/dL (3.4-5.0) L Albumin/Globulin Ratio 0.9 (1.0-1.7) L Urine Collection Type Unknown Urine Color Yellow Urine Clarity Cloudy Urine pH 5.5 Urine Specific [place] 1.020 Urine Protein Negative mg/dL (NEG-TRACE) Urine Glucose (UA) Negative mg/dL (NEG) Urine Ketones (Stick) Negative mg/dL (NEG) Urine Blood Negative (NEG) Urine Nitrite Negative (NEG) Urine Bilirubin Negative (NEG) Urine Urobilinogen Dipstick 0.2 mg/dL (0.2 mg/dL) Urine Leukocyte Esterase Negative (NEG) Urine RBC 0 /HPF (0-2) Urine WBC 0 /HPF (0-4) Urine Squamous Epithelial Cells Occ /LPF Urine Bacteria 0 /HPF (0-FEW) Urine Mucus Slight /LPF Laboratory Tests 01/10/19 18:30 Laboratory Tests 01/10/19 18:30 EKG EKG [] Radiology/Procedures Radiology/Procedures [CT abdomen/pelvis findings: Diverticulitis of distal colon per radiology report] Course & Med Decision Making Course & Med Decision Making Pertinent Labs and Imaging studies reviewed. (See chart for details) [Abdomen soft minimally tender. CT findings of diverticulitis without perforation. Antibiotics given and prescribed. Will discharge home with outpatient treatment and PCP follow up. Return precautions reviewed. Patient verbalizes understanding agreement discharge instructions prior to departure. Dragon Disclaimer Dragon Disclaimer This electronic medical record was generated, in whole or in part, using a voice recognition dictation system. Departure Departure Impression: Primary Impression: Abdominal pain Additional Impression: Diverticulitis Disposition: 01 HOME, SELF-CARE Condition: STABLE Referrals: JULIAN RINCON MD (PCP) Patient Instructions: Diverticulitis Additional Instructions: Please fill antibiotics and take next dose in the a.m. Drink clear liquids only for the next 72 hours and then gradually progress to soft bland diet as tolerated. Follow-up with your PCP in 3-5 days for reevaluation. Return to the ED if new or worsening symptoms. Scripts Metronidazole (FLAGYL) 500 Mg Tablet 1 TAB PO BID, #14 TAB Prov: REBEKAH PHELAN DO 01/10/19 Ciprofloxacin Hcl (CIPRO) 500 Mg Tablet 1 TAB PO BID for 10 Days, #20 TAB 0 Refills Prov: REBEKAH PHELAN DO 01/10/19 Problem Qualifiers REBEKAH PHELAN DO Jan 10, 2019 20:53
== END 2019-01-10 21:09 | disposition home or self-care (01) ==
LOC: ER 16:28
DX: K57.92 Diverticulitis of intestine, part unspecified, without perforation or abscess without bleeding (principal); I10 Essential (primary) hypertension; E78.5 Hyperlipidemia, unspecified; Z86.718 Personal history of other venous thrombosis and embolism; Z86.711 Personal history of pulmonary embolism; Z88.8 Allergy status to other drugs, medicaments and biological substances
CPT/HCPCS: 36415; 74177; 80053; 81001; 85025; 86140; 99285; Q9967

== ENCOUNTER 2019-08-17 11:48 | Inpatient (IN) | payer MEDICARE, OTHER ==
[~2019-08-17] VITALS: Ht 181.6 cm; Wt 103.1 kg
[~2019-08-17 11:48] MED LIST changes: +CIPR500T94 PO; +METR500T PO
[2019-08-17 13:39] LABS: BASO % 0 % (0-3); EOS % 0 % (0-3); HEMATOCRIT 32.8 % (39.0-53.0); HEMOGLOBIN 11.3 g/dL (13.0-17.5); LYMPH # 0.9 x10^3/uL (1.0-4.8); LYMPH % 5 % (24-48); MEAN CORPUSCULAR HEMOGLOBIN 31 pg (25-35); MEAN CORPUSCULAR HGB CONC 34 g/dL (31-37); MEAN CORPUSCULAR VOLUME 91 fL (79-100); MONO # 0.9 x10^3/uL (0.0-1.1); MONO % 5 % (0-9); NEUT # 15.9 x10^3/uL (1.8-7.7); NEUT % 90 % (31-73); PLATELET COUNT 189 x10^3/uL (140-400); RED BLOOD COUNT 3.61 x10^6/uL (4.30-5.70); RED CELL DISTRIBUTION WIDTH 14.5 % (11.5-14.5); WHITE BLOOD COUNT 17.8 x10^3/uL (4.0-11.0)
[2019-08-17 14:08] LABS: CALCIUM 8.3 mg/dL (8.5-10.1); CREATININE 2.2 mg/dL (0.7-1.3); GFR 34.9; POTASSIUM 5.1 mmol/L (3.5-5.1)
--- NOTE | 2019-08-17 14:09 | RAD ---
Right foot 3 views. HISTORY: Wound to bottom the right foot proximal to the great toe. 3 views were taken of the right foot. There is no fracture or bony destructive process. There is osteoarthritis at the first metatarsal phalangeal joint with joint space narrowing and spurring. There is gas in the soft tissues at the great toe from a wound or infection. IMPRESSION: 1. Gas in the soft tissues. 2. Osteoarthritis first metatarsal phalangeal joint. 3. No fracture or bony destructive process. Electronically signed by: Quinton Myers MD (08/17/2019 2:07 PM) [facility]
[2019-08-17 14:24] LABS: % BANDS 8 % (0-9); % LYMPHS 2 % (24-48); % MONOS 4 % (0-10); % SEGS 86 % (35-66); PLT ESTIMATE ADEQUATE (ADEQUATE)
--- NOTE | 2019-08-17 14:41 | RAD ---
Right lower extremity venous ultrasound, : History: History of DVT Duplex evaluation including grayscale, color flow and spectral Doppler analysis was performed. The femoral veins show no filling defects to suggest DVT. The visualized calf veins are unremarkable. Right popliteal vein is still incompletely compressible. The pattern is unchanged compared to the study from August 2018. There is flow through the popliteal vein with color imaging and Doppler with augmentation. IMPRESSION: 1. 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 2. No new deep venous thrombosis. Electronically signed by: Quinton Myers MD (08/17/2019 2:38 PM) [facility]
--- NOTE | 2019-08-17 15:09 | PHYS DOC ---
Past Medical History Past Medical History: Hypertension Additional Past Medical Histor: hyperlipidemia, DVT, PE Smoking Status: Former Smoker Alcohol Use: None Drug Use: None General Adult EDM: Chief Complaint: MULTIPLE COMPLAINTS HPI: HPI: Patient is a 83 year old male who presents to the emergency department with complaints of increased pain in his right thigh with a history of a chronic bloo d clot, and a wound on the plantar aspect of his left foot proximal to the right great toe. Patient states he has been being treated at the wound care center for the wound on his foot but it is not getting any better, they advised him to be evaluated by a consumer marketing manager. He denies any new injury to his right leg or his right foot. He denies any fever, cough, shortness of breath, nausea, vomiting, or abdominal pain. He denies any rash, he states that his right lower extremity is always red and warm due to a chronic problem that he has. He denies any drainage or bleeding from the sore on the bottom of his right foot. He currently rates pain a 2 out of 10 on the pain scale in his right thigh he describes it as a constant throbbing and aching sensation he denies any radiation of the pain. He denies any alleviating or exacerbating factors. Review of Systems: Review of Systems: Constitutional: Denies fever or chills. [] HENT: Denies nasal congestion or sore throat. [] Respiratory: Denies cough or shortness of breath. [] Cardiovascular: Denies chest pain or edema. [] GI: Denies abdominal pain, nausea, vomiting, or diarrhea. [] Musculoskeletal: See HPI Integument: See HPI Neurologic: Denies headache, focal weakness or sensory changes. [] Endocrine: Denies polyuria or polydipsia. [] Psychiatric: Denies depression or anxiety. [] Heart Score: Risk Factors: Risk Factors: DM, Current or recent (<one month) smoker, HTN, HLP, family history of CAD, obesity. Risk Scores: Score 0 - 3: 2.5% MACE over next 6 weeks - Discharge Home Score 4 - 6: 20.3% MACE over next 6 weeks - Admit for Clinical Observation Score 7 - 10: 72.7% MACE over next 6 weeks - Early Invasive Strategies Allergies: Allergies: Allergies Coded Allergies Type Severity Reaction Last Updated Verified rosiglitazone Allergy Intermediate 01/10/19 Yes Physical Exam: PE: Constitutional: Well developed, well nourished, no acute distress, non-toxic appearance. [] HENT: Normocephalic, atraumatic, bilateral external ears normal, nose normal. [] Eyes: PERRLA, EOMI, conjunctiva normal, no discharge. [] Neck: Normal range of motion, no stridor. [] Cardiovascular:Heart rate regular rhythm Lungs & Thorax: Respirations even and unlabored, no retractions, no respiratory distress Skin: Warm, dry; erythema and warmth to right lower extremity with 1+ edema chronic per patient; there is a 2.5 x 1.5 cm open area to the plantar surface of the right foot proximal to the right great toe without any purulent drainage or bleeding skin around the sides blanches Extremities: Right lower extremity: No cyanosis, ROM intact, 1+ edema Neurologic: Alert and oriented X 3, no focal deficits noted. [] Psychologic: Affect normal, judgement normal, mood normal. [] Current Patient Data: Labs: Laboratory Tests Test 08/17/19 13:29 White Blood Count 17.8 x10^3/uL (4.0-11.0) H Red Blood Count 3.61 x10^6/uL (4.30-5.70) L Hemoglobin 11.3 g/dL (13.0-17.5) L Hematocrit 32.8 % (39.0-53.0) L Mean Corpuscular Volume 91 fL (79-100) Mean Corpuscular Hemoglobin 31 pg (25-35) Mean Corpuscular Hemoglobin Concent 34 g/dL (31-37) Red Cell Distribution Width 14.5 % (11.5-14.5) Platelet Count 189 x10^3/uL (140-400) Neutrophils (%) (Auto) 90 % (31-73) H Lymphocytes (%) (Auto) 5 % (24-48) L Monocytes (%) (Auto) 5 % (0-9) Eosinophils (%) (Auto) 0 % (0-3) Basophils (%) (Auto) 0 % (0-3) Neutrophils # (Auto) 15.9 x10^3/uL (1.8-7.7) H Lymphocytes # (Auto) 0.9 x10^3/uL (1.0-4.8) L Monocytes # (Auto) 0.9 x10^3/uL (0.0-1.1) Eosinophils # (Auto) 0.0 x10^3/uL (0.0-0.7) Basophils # (Auto) 0.0 x10^3/uL (0.0-0.2) Segmented Neutrophils % 86 % (35-66) H Band Neutrophils % 8 % (0-9) Lymphocytes % 2 % (24-48) L Monocytes % 4 % (0-10) Platelet Estimate Adequate (ADEQUATE) Sodium Level 140 mmol/L (136-145) Potassium Level 5.1 mmol/L (3.5-5.1) Chloride Level 104 mmol/L (98-107) Carbon Dioxide Level 25 mmol/L (21-32) Anion Gap 11 (6-14) Blood Urea Nitrogen 31 mg/dL (8-26) H Creatinine 2.2 mg/dL (0.7-1.3) H Estimated GFR (Cockcroft-Gault) 34.9 Glucose Level 156 mg/dL (70-99) H Lactic Acid Level 2.2 mmol/L (0.4-2.0) H Calcium Level 8.3 mg/dL (8.5-10.1) L Laboratory Tests 08/17/19 13:29 Laboratory Tests 08/17/19 13:29 Vital Signs: Vital Signs Date Time Temp Pulse Resp B/P (MAP) Pulse Ox O2 Delivery O2 Flow Rate FiO2 08/17/19 12:41 98.6 76 14 153/65 (94) 94 Room Air 98.6 EKG: EKG: [] Radiology/Procedures: Radiology/Procedures: PROCEDURE: VENOUS LOWER EXTREMITY RIGHT Right lower extremity venous ultrasound, : History: History of DVT Duplex evaluation including grayscale, color flow and spectral Doppler analysis was performed. The femoral veins show no filling defects to suggest DVT. The visualized calf veins are unremarkable. Right popliteal vein is still incompletely compressible. The pattern is unchanged compared to the study from August 2018. There is flow through the popliteal vein with color imaging and Doppler with augmentation. IMPRESSION: 1. 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 2. No new deep venous thrombosis.[] PROCEDURE: FOOT RIGHT 3V Right foot 3 views. HISTORY: Wound to bottom the right foot proximal to the great toe. 3 views were taken of the right foot. There is no fracture or bony destructive process. There is osteoarthritis at the first metatarsal phalangeal joint with joint space narrowing and spurring. There is gas in the soft tissues at the great toe from a wound or infection. IMPRESSION: 1. Gas in the soft tissues. 2. Osteoarthritis first metatarsal phalangeal joint. 3. No fracture or bony destructive process. Course & Med Decision Making: Course & Med Decision Making Pertinent Labs and Imaging studies reviewed. (See chart for details) [id number] with Dr. Guy who is the admitting physician, and care was assumed following discussion of patient. Will admit patient for left foot infection, EMERALD, and sepsis Patient's vital signs stable. Patient remains afebrile, appears nontoxic, respirations even and unlabored. Patient will be admitted to the [facility] floor. Patient's case and plan of care also discussed with Dr. Acevedo [] Mima Disclaimer: Mima Disclaimer: This electronic medical record was generated, in whole or in part, using a voice recognition dictation system. Departure Departure Impression: Primary Impression: Left foot infection Additional Impressions: EMERALD (acute kidney injury) Sepsis Qualified Codes: A41.9 - Sepsis, unspecified organism; R65.20 - Severe sepsis without septic shock Disposition: ADMITTED INPATIENT Admitting Physician: SHABNAM (Arabella) Condition: STABLE Referrals: JULIAN RINCON MD (PCP) Justicifation of Admission Dx: Justifications for Admission: Justification of Admission Dx: Yes Sepsis: Infection ROSINA RALPH APRN Aug 17, 2019 15:09
[2019-08-17] MEDS ORDERED: IV NORMAL SALINE 1000ML BAG 1,000 ML IV ONE ×2 (15:15→18:00)
[2019-08-17] MEDS ORDERED: PIPERACILLIN/TAZOBACTAM 3.375 GM in IV NORMAL SALINE 50ML 50 ML IV ONE (15:30)
--- NOTE | 2019-08-17 15:40 | PDOC1 ---
History and Physical Date of Admission Date of Admission DATE: 08/17/19 TIME: 15:36 Identification/Chief Complaint Chief Complaint Right great toe pain Source Source: Patient History of Present Illness History of Present Illness Mr Dietz is an 83yo [employer] w/ PMHx DVT RLE with PE around 2012, OA, DM2, CKD, HTN, HLD, ex-smoker who presents to ED c/o increased pain in his right thigh and toe, and a wound on the plantar aspect of his left foot. Patient states he has been being treated at the wound care center for the wound on his foot but it is not getting any better, they advised him to be evaluated in the ED He denies any new injury to his right leg or his right foot. He denies any fever, cough, shortness of breath, nausea, vomiting, or abdominal pain. He denies any rash, he states that his right lower extremity is always discolored due to chronic venous stasis dermatitis. He denies any drainage or bleeding from the sore on the bottom of his right foot. He currently rates pain a 2 out of 10 on the pain scale in his right thigh he describes it as a constant throbbing and aching sensation he denies any radiation of the pain. He denies any alleviating or exacerbating factors. X-ray right foot with gas subcutaneous gas. WBC 17.8, Hb 11.3, platelets 189, NA 140, K5.1, BUN 31, CR 2.2, glucose 156. Of note he tells me that he has a wedding to be 2 in [place] on 08/20/2019 and was planning on leaving on 08/18/2019 which is tomorrow. Admitted for further care Past Medical History Cardiovascular: HTN, Hyperlipidemia Pulmonary: COPD, Other CENTRAL NERVOUS SYSTEM: Periperal neuropathy GI: GERD Heme/Onc: Other Hepatobiliary: No pertinent hx Psych: No pertinent hx Musculoskeletal: Osteoarthritis Rheumatologic: Gout Infectious disease: No pertinent hx Renal/: Chronic renal insuff, Benign prostatic enlarg. Endocrine: Diabetes Past Surgical History Past Surgical History: No pertinent history Family History Family History: Diabetes Social History Smoke: Quit ALCOHOL: none Drugs: None Current Medications Current Medications Current Medications Sodium Chloride 1,000 ml @ 1,000 mls/hr 1X ONCE IV ; Start 08/17/19 at 15:15; Stop 08/17/19 at 16:14 Piperacillin Sod/ Tazobactam Sod 3.375 gm/Sodium Chloride 50 ml @ 100 mls/hr 1X ONCE IV ; Start 08/17/19 at 15:30; Stop 08/17/19 at 15:59 Active Scripts Active Flagyl (Metronidazole) 500 Mg Tablet 1 Tab PO BID Cipro (Ciprofloxacin Hcl) 500 Mg Tablet 1 Tab PO BID 10 Days Carvedilol (Carvedilol) 3.125 Mg Tablet 3.125 Mg PO BIDWMEALS 30 Days Humalog (Insulin Lispro) 100 Unit/1 Ml Insuln.pen 0 Units SQ QIDACHS 30 Days Lantus Solostar (Insulin Glargine,Hum.rec.anlog) 100 Unit/1 Ml Insuln.pen 15 Units SQ QHS 30 Days Eliquis (Apixaban) 5 Mg Tablet 10 Mg PO BID 7 Days Eliquis (Apixaban) 5 Mg Tablet 5 Mg PO BID 30 Days Reported Simvastatin 40 Mg Tablet 1 Tab PO QHS Aspirin 81 Mg Tab.chew 1 Tab PO DAILY Gabapentin (Gabapentin) 100 Mg Capsule 100 Mg PO QID Allopurinol 100 Mg Tablet 1 Tab PO DAILY Vitamin D3 (Cholecalciferol (Vitamin D3)) 1,000 Unit Tablet 2,000 Unit PO DAILY Silvadene (Silver Sulfadiazine) 20 Gm Cream..g. 1 Rhiannon TP BID [place] 3 Fish Oil Softgel ([place]-3 Fatty Acids/Fish Oil) 1 Each Capsule.dr 1 Each PO TID Vitamin E (Vitamin E Mixed) 400 Unit Capsule 400 Unit PO DAILY Ascorbic Acid 500 Mg Tablet 500 Mg PO DAILY Lisinopril 20 Mg Tablet 1 Tab PO DAILY Furosemide 20 Mg Tablet 10 Mg PO DAILY Allergies Allergies: Coded Allergies: rosiglitazone (Verified Allergy, Intermediate, 01/10/19) ROS General: No: Chills, Night Sweats, Fatigue, Malaise, Appetite, Other PSYCHOLOGICAL ROS: No: Anxiety, Behavioral Disorder, Concentration difficultie, Decreased libido, Depression, Disorientation, Hallucinations, Hostility, Irritablity, Memory difficulties, Mood Swings, Obsessive thoughts, Physical abuse, Sexual abuse, Sleep disturbances, Suicidal ideation, Other Eyes: No Blurry vision, No Decreased vision, No Double vision, No Dry eyes, No Excessive tearing, No Eye Pain, No Itchy Eyes, No Loss of vision, No Photophobia, No Scotomata, No Uses contacts, No Uses glasses, No Other HEENT: No: Heacaches, Visual Changes, Hearing change, Nasal congestion, Nasal discharge, Oral lesions, Sinus pain, Sore Throat, Epistaxis, Sneezing, Snoring, Tinnitus, Vertigo, Vocal changes, Other ALLERGY AND IMMUNOLOGY: No: Hives, Insect Bite Sensitivity, Itchy/Watery Eyes, Nasal Congestion, Post Nasal Drip, Seasonal Allergies, Other Hematological and Lymphatic: No: Bleeding Problems, Blood Clots, Blood Transfusions, Brusing, Night Sweats, Pallor, Swollen Lymph Nodes, Other ENDOCRINE: No: Breast Changes, Galactorrhea, Hair Pattern Changes, Hot Flashes, Malaise/lethargy, Mood Swings, Palpitations, Polydipsia/polyuria, Skin Changes, Temperature Intolerance, Unexpected Weight Changes, Other Breast: No New/Changing Breast Lumps, No Nipple changes, No Nipple discharge, No Other Respiratory: No: Cough, Hemoptysis, Orthopnea, Pleuritic Pain, Shortness of breath, SOB with excertion, Sputum Changes, Stridor, Tachypnea, Wheezing, Other Cardiovascular: No Chest Pain, No Palpitations, No Orthopnea, No Paroxysmal Noc. Dyspnea, No Edema, No Lt Headedness, No Other Gastrointestinal: No Nausea, No Vomiting, No Abdominal Pain, No Diarrhea, No Constipation, No Melena, No Hematochezia, No Other Genitourinary: No Dysuria, No Frequency, No Incontinence, No Hematuria, No Retention, No Discharge, No Urgency, No Pain, No Flank Pain, No Other, No , No , No , No , No , No , No Musculoskeletal: Yes Gait Disturbance, Yes Joint Pain, Yes Joint Swelling, Yes Muscle Pain, Yes Muscular Weakness; No Joint Stiffness, No Pain In:, No Swelling In:, No Other Neurological: Yes Gait Disturbance; No Behavorial Changes, No Bowel/Bladder ControlChng, No Confusion, No Dizziness, No Headaches, No Impaired Coord/balance, No Memory Loss, No Numbness/Tingling, No Seizures, No Speech Problems, No Tremors, No Visual Changes, No Weakness, No Other Skin: Yes Dry Skin, Yes Mottling, Yes Rash; No Eczema, No Hair Changes, No Lumps, No Mole Changes, No Nail Changes, No Pruritus, No Skin Lesion Changes, No Other, No Acne Physical Exam General: Alert, Oriented X3, Cooperative, No acute distress HEENT: Atraumatic, PERRLA, EOMI, Mucous membr. moist/pink Lungs: Clear to auscultation, Normal air movement Heart: S1S2, RRR, no thrills, no rubs, no gallops, no murmurs Abdomen: Normal bowel sounds, Soft, No tenderness, No hepatosplenomegaly, No masses Extremities: No clubbing, No cyanosis, No edema, Normal pulses, No tenderness/swelling Skin: Other (Right plantar ulcer 1st MTP, left dorsal ulcer. Venous stasis dermatitis) Neuro: Normal gait, Normal speech, Strength at 5/5 X4 ext, Normal tone, Sensation intact, Cranial nerves 3-12 NL, Reflexes 2+ Psych/Mental Status: Mental status NL, Mood NL Vitals Vitals Vital Signs Date Time Temp Pulse Resp B/P (MAP) Pulse Ox O2 Delivery O2 Flow Rate FiO2 08/17/19 12:41 98.6 76 14 153/65 (94) 94 Room Air 98.6 Labs Labs Laboratory Tests Test 08/17/19 13:29 White Blood Count 17.8 x10^3/uL (4.0-11.0) Red Blood Count 3.61 x10^6/uL (4.30-5.70) Hemoglobin 11.3 g/dL (13.0-17.5) Hematocrit 32.8 % (39.0-53.0) Mean Corpuscular Volume 91 fL (79-100) Mean Corpuscular Hemoglobin 31 pg (25-35) Mean Corpuscular Hemoglobin Concent 34 g/dL (31-37) Red Cell Distribution Width 14.5 % (11.5-14.5) Platelet Count 189 x10^3/uL (140-400) Neutrophils (%) (Auto) 90 % (31-73) Lymphocytes (%) (Auto) 5 % (24-48) Monocytes (%) (Auto) 5 % (0-9) Eosinophils (%) (Auto) 0 % (0-3) Basophils (%) (Auto) 0 % (0-3) Neutrophils # (Auto) 15.9 x10^3/uL (1.8-7.7) Lymphocytes # (Auto) 0.9 x10^3/uL (1.0-4.8) Monocytes # (Auto) 0.9 x10^3/uL (0.0-1.1) Eosinophils # (Auto) 0.0 x10^3/uL (0.0-0.7) Basophils # (Auto) 0.0 x10^3/uL (0.0-0.2) Segmented Neutrophils % 86 % (35-66) Band Neutrophils % 8 % (0-9) Lymphocytes % 2 % (24-48) Monocytes % 4 % (0-10) Platelet Estimate Adequate (ADEQUATE) Sodium Level 140 mmol/L (136-145) Potassium Level 5.1 mmol/L (3.5-5.1) Chloride Level 104 mmol/L (98-107) Carbon Dioxide Level 25 mmol/L (21-32) Anion Gap 11 (6-14) Blood Urea Nitrogen 31 mg/dL (8-26) Creatinine 2.2 mg/dL (0.7-1.3) Estimated GFR (Cockcroft-Gault) 34.9 Glucose Level 156 mg/dL (70-99) Lactic Acid Level 2.2 mmol/L (0.4-2.0) Calcium Level 8.3 mg/dL (8.5-10.1) Laboratory Tests Test 08/17/19 13:29 White Blood Count 17.8 x10^3/uL (4.0-11.0) Red Blood Count 3.61 x10^6/uL (4.30-5.70) Hemoglobin 11.3 g/dL (13.0-17.5) Hematocrit 32.8 % (39.0-53.0) Mean Corpuscular Volume 91 fL (79-100) Mean Corpuscular Hemoglobin 31 pg (25-35) Mean Corpuscular Hemoglobin Concent 34 g/dL (31-37) Red Cell Distribution Width 14.5 % (11.5-14.5) Platelet Count 189 x10^3/uL (140-400) Neutrophils (%) (Auto) 90 % (31-73) Lymphocytes (%) (Auto) 5 % (24-48) Monocytes (%) (Auto) 5 % (0-9) Eosinophils (%) (Auto) 0 % (0-3) Basophils (%) (Auto) 0 % (0-3) Neutrophils # (Auto) 15.9 x10^3/uL (1.8-7.7) Lymphocytes # (Auto) 0.9 x10^3/uL (1.0-4.8) Monocytes # (Auto) 0.9 x10^3/uL (0.0-1.1) Eosinophils # (Auto) 0.0 x10^3/uL (0.0-0.7) Basophils # (Auto) 0.0 x10^3/uL (0.0-0.2) Segmented Neutrophils % 86 % (35-66) Band Neutrophils % 8 % (0-9) Lymphocytes % 2 % (24-48) Monocytes % 4 % (0-10) Platelet Estimate Adequate (ADEQUATE) Sodium Level 140 mmol/L (136-145) Potassium Level 5.1 mmol/L (3.5-5.1) Chloride Level 104 mmol/L (98-107) Carbon Dioxide Level 25 mmol/L (21-32) Anion Gap 11 (6-14) Blood Urea Nitrogen 31 mg/dL (8-26) Creatinine 2.2 mg/dL (0.7-1.3) Estimated GFR (Cockcroft-Gault) 34.9 Glucose Level 156 mg/dL (70-99) Lactic Acid Level 2.2 mmol/L (0.4-2.0) Calcium Level 8.3 mg/dL (8.5-10.1) Images Images Right foot XR: 3 views were taken of the right foot. There is no fracture or bony destructive process. There is osteoarthritis at the first metatarsal phalangeal joint with joint space narrowing and spurring. There is gas in the soft tissues at the great toe from a wound or infection. IMPRESSION: 1. Gas in the soft tissues. 2. Osteoarthritis first metatarsal phalangeal joint. 3. No fracture or bony destructive process. RLE venous doppler: Duplex evaluation including grayscale, color flow and spectral Doppler analysis was performed. The femoral veins show no filling defects to suggest DVT. The visualized calf veins are unremarkable. Right popliteal vein is still incompletely compressible. The pattern is unchanged compared to the study from August 2018. There is flow through the popliteal vein with color imaging and Doppler with augmentation. IMPRESSION: 1. 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 2. No new deep venous thrombosis. VTE Prophylaxis Ordered VTE Prophylaxis Devices: Yes VTE Pharmacological Prophylaxi: Yes Assessment/Plan Assessment/Plan A/P: Right MTP plantar foot ulcer - diabetic infected ulcer with subcutaneous gas, abscess apparent. Empiric vancomycin and zosyn, consult ortho for debridement PVD - Had vascular studies done December 2018 with PVD blood flow to the right leg decreased blood flow to anterior and left leg. DVT RLE with PE around 2012 - on eliquis, will hold for possible surgery. Heparin GTT while eliquis is on hold Left dorsal 1st toe ulcer - wound care to see OA - stable, cont meds DM2 - sliding scale EMERALD on CKD - will hydrate overnight. Consult nephrology HTN - cont meds HLD - cont meds ex-smoker FEN - ADA diet, npo after midnight PPX - heparin FULL CODE Dispo - inpatient for 2 midnights Justicifation of Admission Dx: Justifications for Admission: Justification of Admission Dx: Yes ASHANTI BENNETT MD Aug 17, 2019 15:40
[2019-08-17] MEDS ORDERED: HEPARIN for IV BOLUS 10,000 UNIT/10 ML VIAL. IV PRN ×2 (17:45)
[2019-08-17] MEDS ORDERED: PIP/TAZO PER PHARMACY MC PRN (17:45)
[2019-08-17] MEDS ORDERED: DEXTROSE 50% 25 GM / 50ML DISP.SYRIN. IV PRN (17:45)
[2019-08-17] MEDS ORDERED: HEPARIN 25,000UTS/250ML PREMIX 250 ML IV PRN (17:45)
[2019-08-17] MEDS ORDERED: PIPERACILLIN/TAZOBACTAM 2.25 GM in IV NORMAL SALINE 50ML 50 ML IV SCH (18:00)
[2019-08-17] MEDS ORDERED: VANCOMYCIN 2 GM in IV NORMAL SALINE 500ML BAG 500 ML IV ONE (18:00)
--- NOTE | 2019-08-17 18:20 | RAD ---
Bilateral lower extremity arterial ultrasound History:Diabetic ulcers bilaterally Findings: Multiple grayscale, color, and duplex spectral analysis sonographic images were acquired of the lower extremity arteries bilaterally. There is extensive plaque bilaterally. There are mostly biphasic waveforms of the right of the monophasic waveform of profunda femoris artery and triphasic waveform of the common femoral artery. On the left, there are monophasic waveforms beyond the popliteal artery, biphasic waveforms throughout the superficial femoral artery popliteal artery, triphasic waveform of the common femoral artery. 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 Velocities in cm/sec: RIGHT Common femoral artery 202 Profunda femoris artery 88 Proximal SFA 206 Mid SFA 104 Distal SFA 100 Popliteal artery 82 Posterior tibial artery 74 proximally and 71 distally Peroneal artery 77 Anterior tibial artery 58 Dorsalis pedis artery 54 LEFT: Common femoral artery 156 Profunda femoris artery 133 Proximal SFA 88 Mid SFA 95 Distal SFA 77 Popliteal artery 24 Posterior tibial artery 34 proximally and 29 distally Peroneal artery 18 Anterior tibial artery 36 Dorsalis pedis artery not seen Impression: 1. There is extensive bilateral plaque. 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 There are diffuse abnormal monophasic waveforms and low velocities of the visualized left runoff vessels. Electronically signed by: Shan Rainey MD (08/17/2019 6:17 PM) [facility]
--- NOTE | 2019-08-17 19:45 | NUR ---
ADMISSION NOTE: Patient arrived to room 412 via gurney accompanied by ED staff at approximately 1935. Patient able to scoot self over to hospital bed without visible difficulty. Bed low, locked, call light within reach. Heparin gtt infusing. Spoke with Marly from ER who had been taking care of patient; stated that consults to [facility], and [facility] have been called. Will pass along to day RN.
[2019-08-17 20:00] VITALS: BP 149/33
[2019-08-17] MEDS: INSULIN LISPRO 300 UNITS/3 ML VIAL. SQ SCH (21:00)
[2019-08-17] MEDS ORDERED: INSULIN GLARGINE SYRINGE. SQ SCH (21:00)
[2019-08-17] MEDS ORDERED: CLOT15CR53 TP (21:22)
[2019-08-17] MEDS ORDERED: CINN500C2 PO (21:22)
[2019-08-17] MEDS ORDERED: VITA-8 PO (21:22)
[2019-08-17] MEDS ORDERED: CETI10TA16 PO (21:22)
[2019-08-17] MEDS ORDERED: SAW1CAPS6 PO (21:22)
[2019-08-17] MEDS ORDERED: INSU100V8 SQ ×2 (21:22)
[2019-08-17] MEDS ORDERED: GARL1000 PO (21:22)
[2019-08-17] MEDS: GABAPENTIN 100 MG CAPSULE. PO SCH (21:45)
[2019-08-17] MEDS: SIMVASTATIN 40 MG TABLET. PO SCH (21:45)
--- NOTE | 2019-08-17 22:00 | NUR ---
MED ADMINISTRATION NOTE: Checked compatibility of Heparin gtt, Zosyn, and Vancomycin. Per [facility], Heparin gtt and Zosyn are Y-site compatible, and Heparin gtt and Vancomycin are "variable." Called pharmacy at this time to double check compatibility. Pharmacist reported that patient's Vanc concentration is incompatible with Heparin gtt. Unable to establish additional IV access. Will hold heparin gtt for Vancomycin infusion, see IV spreadsheet for details.
[2019-08-17 23:00] VITALS: BP 123/84
[2019-08-18] MEDS: PIPERACILLIN/TAZOBACTAM 2.25 GM in IV NORMAL SALINE 50ML 50 ML IV SCH ×5 (00:38→23:56)
[2019-08-18 03:00] VITALS: BP 115/41
[2019-08-18 07:00] VITALS: BP 126/54
[2019-08-18] MEDS: INSULIN LISPRO 300 UNITS/3 ML VIAL. SQ SCH ×4 (07:30→21:39)
--- NOTE | 2019-08-18 08:30 | NUR ---
critical result called regarding heparin drip. see iv flowsheet. heparin was held for an hr , then rate decreased per protocol.
[2019-08-18] MEDS: ASCORBIC ACID 500 MG TABLET PO SCH (08:58)
[2019-08-18] MEDS: CHOLECALCIFEROL (VITAMIN D3) 1,000 UNIT TABLET PO SCH (08:59)
[2019-08-18] MEDS: GABAPENTIN 100 MG CAPSULE. PO SCH ×4 (08:59→21:36)
[2019-08-18] MEDS: CARVEDILOL 3.125 MG TABLET. PO SCH ×2 (08:59→17:23)
[2019-08-18] MEDS ORDERED: ALLOPURINOL 100 MG TABLET. PO SCH (09:00)
--- NOTE | 2019-08-18 09:21 | PDOC2 ---
CONSULT Date of Consult Date of Consult DATE: 08/18/19 TIME: 09:17 Reason for Consult Reason for Consult: Right great toe wound Referring Physician Referring Physician: Brooks Identification/Chief Complaint Chief Complaint Right toe pain Source Source: Patient History of Present Illness Reason for Visit: Patient is a pleasant 83-year-old gentleman who has about a 1 year history of an toe wound underneath the dorsum of his right first metatarsal head. He tells me he has been under wound care at the [place]. It will heal and then break open and so on. He tells me that sometimes his toes hurt at rest. To the best of his knowledge she has never been evaluated by a vascular surgeon. The increased pain at his toe prompted his visit to our hospital. He denies any fevers or chills, nausea or vomiting. He has not noticed any drainage at his toe wound. Past Medical History Cardiovascular: HTN, Hyperlipidemia Pulmonary: COPD, Other CENTRAL NERVOUS SYSTEM: Periperal neuropathy GI: GERD Heme/Onc: Other Hepatobiliary: No pertinent hx Psych: No pertinent hx Musculoskeletal: Osteoarthritis Rheumatologic: Gout Infectious disease: No pertinent hx Renal/: Chronic renal insuff, Benign prostatic enlarg. Endocrine: Diabetes Past Surgical History Past Surgical History: No pertinent history Family History Family History: Diabetes Social History Quit ALCOHOL: none Drugs: None Lives: with Family Current Problem List Problem List Problems Medical Problems: (1) EMERALD (acute kidney injury) Status: Acute (2) Left foot infection Status: Acute (3) Sepsis Status: Acute Current Medications Current Medications Current Medications Sodium Chloride 1,000 ml @ 1,000 mls/hr 1X ONCE IV Last administered on 08/17/19at 16:17; Start 08/17/19 at 15:15; Stop 08/17/19 at 16:14; Status DC Piperacillin Sod/ Tazobactam Sod 3.375 gm/Sodium Chloride 50 ml @ 100 mls/hr 1X ONCE IV Last administered on 08/17/19at 16:17; Start 08/17/19 at 15:30; Stop 08/17/19 at 15:59; Status DC Allopurinol (Zyloprim) 100 mg DAILY PO Last administered on 08/18/19at 09:01; Start 08/18/19 at 09:00 Ascorbic Acid (Vitamin C) 500 mg DAILY PO Last administered on 08/18/19at 08:58; Start 08/18/19 at 09:00 Carvedilol (Coreg) 3.125 mg BIDWMEALS PO Last administered on 08/18/19 08:59; Start 08/18/19 at 08:00 Vitamin D (Vitamin D3) 2,000 unit DAILY PO Last administered on 08/18/19at 08:59; Start 08/18/19 at 09:00 Gabapentin (Neurontin) 100 mg QID PO Last administered on 08/18/19 08:59; Start 08/17/19 at 21:00 Simvastatin (Zocor) 40 mg QHS PO Last administered on 08/17/19 21:45; Start 08/17/19 at 21:00 Insulin Glargine (Lantus Syringe) 15 unit QHS SQ Last administered on 08/17/19 21:50; Start 08/17/19 at 21:00 Heparin Sodium/ Dextrose 250 ml @ 0 mls/hr CONT PRN IV PER PROTOCOL Last administered on 08/17/19at 18:44; Start 08/17/19 at 17:45 Heparin Sodium (Porcine) (Heparin Sodium) 3,250 unit PRN Q6HRS PRN IV FOR UFH LEVEL LESS THAN 0.2 Last administered on 08/17/19at 18:45; Start 08/17/19 at 17:45 Heparin Sodium (Porcine) (Heparin Sodium) 1,600 unit PRN Q6HRS PRN IV FOR UFH LEVEL 0.2 - 0.29; Start 08/17/19 at 17:45 Insulin Human Lispro (HumaLOG) 0-7 UNITS TIDACHC SQ ; Start 08/17/19 at 21:00 Dextrose (Dextrose 50%-Water Syringe) 12.5 gm PRN Q15MIN PRN IV SEE COMMENTS; Start 08/17/19 at 17:45 Vancomycin HCl 2 gm/Sodium Chloride 500 ml @ 250 mls/hr 1X ONCE IV Last administered on 08/17/19at 22:15; Start 08/17/19 at 18:00; Stop 08/17/19 at 19:59; Status DC Piperacillin Sod/ Tazobactam Sod (Zosyn Per Pharmacy) 1 each PRN DAILY PRN MC SEE COMMENTS; Start 08/17/19 at 17:45 Sodium Chloride 1,000 ml @ 100 mls/hr 1X ONCE IV Last administered on 7/9/20at 20:56; Start 08/17/19 at 18:00; Stop 08/18/19 at 03:59; Status DC Piperacillin Sod/ Tazobactam Sod 2.25 gm/Sodium Chloride 50 ml @ 100 mls/hr Q6HRS IV ; Start 08/17/19 at 18:00; Status Cancel Piperacillin Sod/ Tazobactam Sod 2.25 gm/Sodium Chloride 50 ml @ 100 mls/hr Q6HRS IV Last administered on 08/18/19at 06:09; Start 08/17/19 at 23:00 Active Scripts Active Carvedilol (Carvedilol) 3.125 Mg Tablet 3.125 Mg PO BIDWMEALS 30 Days Humalog (Insulin Lispro) 100 Unit/1 Ml Insuln.pen 0 Units SQ QIDACHS 30 Days Eliquis (Apixaban) 5 Mg Tablet 5 Mg PO BID 30 Days Reported Vitamin E (Vitamin E Mixed) 400 Unit Capsule 400 Unit PO PRN DAILY PRN Saw [place] Capsule (Saw [place] Xtr/Zinc Picolin) 1 Each Capsule 1 Each PO PRN DAILY PRN Garlic Oil (Garlic) 1,000 Mg Capsule 1,000 Mg PO PRN DAILY PRN Cinnamon (Cinnamon Bark) 500 Mg Capsule 500 Mg PO PRN DAILY PRN Cetirizine Hcl 10 Mg Tablet 1 Tab PO PRN DAILY PRN Lantus (Insulin Glargine,Hum.rec.anlog) 100 Unit/1 Ml Vial 30 Unit SQ QHS Lantus (Insulin Glargine,Hum.rec.anlog) 100 Unit/1 Ml Vial 35 Unit SQ DAILYWBKFT Itch Relief (Clotrimazole) 15 Gm Cream..g. 1 Rhiannon TP PRN BID PRN 14 Days Apply to right lower leg Simvastatin 40 Mg Tablet 1 Tab PO QHS Aspirin 81 Mg Tab.chew 1 Tab PO DAILY Gabapentin (Gabapentin) 100 Mg Capsule 100 Mg PO QHS Allopurinol 100 Mg Tablet 1 Tab PO DAILY Vitamin D3 (Cholecalciferol (Vitamin D3)) 1,000 Unit Tablet 1,000 Unit PO DAILY Silvadene (Silver Sulfadiazine) 20 Gm Cream..g. 1 Rhiannon TP BID [place]farland 3 Fish Oil Softgel ([place]cfar[place]-3 Fatty Acids/Fish Oil) 1 Each Capsule.dr 1 Each PO PRN DAILY PRN Ascorbic Acid 500 Mg Tablet 500 Mg PO PRN DAILY PRN Lisinopril 20 Mg Tablet 1 Tab PO DAILY Furosemide 20 Mg Tablet 20 Mg PO DAILY Allergies Allergies: Coded Allergies: rosiglitazone (Verified Allergy, Intermediate, 01/10/19) ROS General: No: Chills, Night Sweats, Fatigue, Malaise, Appetite, Other PSYCHOLOGICAL ROS: No: Anxiety, Behavioral Disorder, Concentration difficultie, Decreased libido, Depression, Disorientation, Hallucinations, Hostility, Irritablity, Memory difficulties, Mood Swings, Obsessive thoughts, Physical abuse, Sexual abuse, Sleep disturbances, Suicidal ideation, Other Eyes: No Blurry vision, No Decreased vision, No Double vision, No Dry eyes, No Excessive tearing, No Eye Pain, No Itchy Eyes, No Loss of vision, No Photophobia, No Scotomata, No Uses contacts, No Uses glasses, No Other HEENT: No: Heacaches, Visual Changes, Hearing change, Nasal congestion, Nasal discharge, Oral lesions, Sinus pain, Sore Throat, Epistaxis, Sneezing, Snoring, Tinnitus, Vertigo, Vocal changes, Other ALLERGY AND IMMUNOLOGY: No: Hives, Insect Bite Sensitivity, Itchy/Watery Eyes, Nasal Congestion, Post Nasal Drip, Seasonal Allergies, Other Hematological and Lymphatic: No: Bleeding Problems, Blood Clots, Blood Transfusions, Brusing, Night Sweats, Pallor, Swollen Lymph Nodes, Other ENDOCRINE: No: Breast Changes, Galactorrhea, Hair Pattern Changes, Hot Flashes, Malaise/lethargy, Mood Swings, Palpitations, Polydipsia/polyuria, Skin Changes, Temperature Intolerance, Unexpected Weight Changes, Other Respiratory: No: Cough, Hemoptysis, Orthopnea, Pleuritic Pain, Shortness of breath, SOB with excertion, Sputum Changes, Stridor, Tachypnea, Wheezing, Other Cardiovascular: No Chest Pain, No Palpitations, No Orthopnea, No Paroxysmal Noc. Dyspnea, No Edema, No Lt Headedness, No Other Gastrointestinal: No Nausea, No Vomiting, No Abdominal Pain, No Diarrhea, No Constipation, No Melena, No Hematochezia, No Other Genitourinary: No Dysuria, No Frequency, No Incontinence, No Hematuria, No Retention, No Discharge, No Urgency, No Pain, No Flank Pain, No Other, No , No , No , No , No , No , No Musculoskeletal: Yes Joint Pain Neurological: Yes Numbness/Tingling (From ankles distally bilaterally); No Behavorial Changes, No Bowel/Bladder ControlChng, No Confusion, No Dizziness, No Gait Disturbance, No Headaches, No Impaired Coord/balance, No Memory Loss, No Seizures, No Speech Problems, No Tremors, No Visual Changes, No Weakness, No Other Skin: No Dry Skin, No Eczema, No Hair Changes, No Lumps, No Mole Changes, No Mottling, No Nail Changes, No Pruritus, No Rash, No Skin Lesion Changes, No Other, No Acne Physical Exam General: Alert, Oriented X3 HEENT: Atraumatic, EOMI Lungs: Other (Respirations unlabored with symmetric chest rise) Heart: Regular rate Abdomen: Soft, No tenderness Extremities: Other (Unable to palpate dorsalis pedis pulses, he has edema at his right ankle.) Skin: Other (As below) Neuro: Normal speech, Strength at 5/5 X4 ext, Sensation intact (With the except ion of decreased sensation to light touch from ankles to toes.) Psych/Mental Status: Mental status NL, Mood NL MUSCULOSKELETAL: Other (He has about a dime sized wound underneath his first metatarsal head on the right side without any drainage fluctuance or erythema around it. He has callosity surrounding this. I am not able to probe to bone) Vitals VITALS Vital Signs Date Time Temp Pulse Resp B/P (MAP) Pulse Ox O2 Delivery O2 Flow Rate FiO2 08/18/19 08:59 62 126/54 08/18/19 07:00 98.1 18 92 Room Air 98.1 Labs Labs Laboratory Tests Test 08/17/19 13:29 08/17/19 17:20 08/17/19 20:20 08/18/19 01:07 White Blood Count 17.8 x10^3/uL (4.0-11.0) Red Blood Count 3.61 x10^6/uL (4.30-5.70) Hemoglobin 11.3 g/dL (13.0-17.5) Hematocrit 32.8 % (39.0-53.0) Mean Corpuscular Volume 91 fL (79-100) Mean Corpuscular Hemoglobin 31 pg (25-35) Mean Corpuscular Hemoglobin Concent 34 g/dL (31-37) Red Cell Distribution Width 14.5 % (11.5-14.5) Platelet Count 189 x10^3/uL (140-400) Neutrophils (%) (Auto) 90 % (31-73) Lymphocytes (%) (Auto) 5 % (24-48) Monocytes (%) (Auto) 5 % (0-9) Eosinophils (%) (Auto) 0 % (0-3) Basophils (%) (Auto) 0 % (0-3) Neutrophils # (Auto) 15.9 x10^3/uL (1.8-7.7) Lymphocytes # (Auto) 0.9 x10^3/uL (1.0-4.8) Monocytes # (Auto) 0.9 x10^3/uL (0.0-1.1) Eosinophils # (Auto) 0.0 x10^3/uL (0.0-0.7) Basophils # (Auto) 0.0 x10^3/uL (0.0-0.2) Segmented Neutrophils % 86 % (35-66) Band Neutrophils % 8 % (0-9) Lymphocytes % 2 % (24-48) Monocytes % 4 % (0-10) Platelet Estimate Adequate (ADEQUATE) Sodium Level 140 mmol/L (136-145) Potassium Level 5.1 mmol/L (3.5-5.1) Chloride Level 104 mmol/L (98-107) Carbon Dioxide Level 25 mmol/L (21-32) Anion Gap 11 (6-14) Blood Urea Nitrogen 31 mg/dL (8-26) Creatinine 2.2 mg/dL (0.7-1.3) Estimated GFR (Cockcroft-Gault) 34.9 Glucose Level 156 mg/dL (70-99) Lactic Acid Level 2.2 mmol/L (0.4-2.0) 1.1 mmol/L (0.4-2.0) Calcium Level 8.3 mg/dL (8.5-10.1) Glucose (Fingerstick) 111 mg/dL (70-99) Heparin Anti-Xa Act, Unfractionated > 1.10 IU/mL (0.30-0.70) Test 08/18/19 07:30 08/18/19 07:47 Heparin Anti-Xa Act, Unfractionated > 1.10 IU/mL (0.30-0.70) Glucose (Fingerstick) 110 mg/dL (70-99) Laboratory Tests Test 08/17/19 13:29 08/17/19 17:20 08/17/19 20:20 08/18/19 01:07 White Blood Count 17.8 x10^3/uL (4.0-11.0) Red Blood Count 3.61 x10^6/uL (4.30-5.70) Hemoglobin 11.3 g/dL (13.0-17.5) Hematocrit 32.8 % (39.0-53.0) Mean Corpuscular Volume 91 fL (79-100) Mean Corpuscular Hemoglobin 31 pg (25-35) Mean Corpuscular Hemoglobin Concent 34 g/dL (31-37) Red Cell Distribution Width 14.5 % (11.5-14.5) Platelet Count 189 x10^3/uL (140-400) Neutrophils (%) (Auto) 90 % (31-73) Lymphocytes (%) (Auto) 5 % (24-48) Monocytes (%) (Auto) 5 % (0-9) Eosinophils (%) (Auto) 0 % (0-3) Basophils (%) (Auto) 0 % (0-3) Neutrophils # (Auto) 15.9 x10^3/uL (1.8-7.7) Lymphocytes # (Auto) 0.9 x10^3/uL (1.0-4.8) Monocytes # (Auto) 0.9 x10^3/uL (0.0-1.1) Eosinophils # (Auto) 0.0 x10^3/uL (0.0-0.7) Basophils # (Auto) 0.0 x10^3/uL (0.0-0.2) Segmented Neutrophils % 86 % (35-66) Band Neutrophils % 8 % (0-9) Lymphocytes % 2 % (24-48) Monocytes % 4 % (0-10) Platelet Estimate Adequate (ADEQUATE) Sodium Level 140 mmol/L (136-145) Potassium Level 5.1 mmol/L (3.5-5.1) Chloride Level 104 mmol/L (98-107) Carbon Dioxide Level 25 mmol/L (21-32) Anion Gap 11 (6-14) Blood Urea Nitrogen 31 mg/dL (8-26) Creatinine 2.2 mg/dL (0.7-1.3) Estimated GFR (Cockcroft-Gault) 34.9 Glucose Level 156 mg/dL (70-99) Lactic Acid Level 2.2 mmol/L (0.4-2.0) 1.1 mmol/L (0.4-2.0) Calcium Level 8.3 mg/dL (8.5-10.1) Glucose (Fingerstick) 111 mg/dL (70-99) Heparin Anti-Xa Act, Unfractionated > 1.10 IU/mL (0.30-0.70) Test 08/18/19 07:30 08/18/19 07:47 Heparin Anti-Xa Act, Unfractionated > 1.10 IU/mL (0.30-0.70) Glucose (Fingerstick) 110 mg/dL (70-99) Images Images X-rays and vascular studies over the past year were reviewed Assessment/Plan Assessment/Plan My impression is that he is having worsening peripheral vascular disease based on the studies available to myself for review. No obvious bony involvement on x-ray. I discussed with his admitting physician that I think a vascular surgery evaluation is in order. CHRISTIANO BAXTER II, MD Aug 18, 2019 09:21
--- NOTE | 2019-08-18 09:22 | PDOC ---
PROGRESS NOTES History of Present Illness History of Present Illness VTE Prophylaxis Ordered VTE Prophylaxis Devices: Yes VTE Pharmacological Prophylaxi: Yes impression Assessment/Plan A/P: Right MTP plantar foot ulcer - diabetic infected ulcer with subcutaneous gas, abscess apparent. Empiric zosyn, consult ortho for debridement PVD - Had vascular studies done December 2018 with PVD blood flow to the right leg decreased blood flow to anterior and left leg. DVT RLE with PE around 2012 - on eliquis, will hold for possible surgery. Heparin GTT while eliquis is on hold Left dorsal 1st toe ulcer - wound care to see OA - stable, cont meds DM2 - sliding scale EMERALD on CKD - will hydrate overnight. Consult nephrology HTN - cont meds HLD - cont meds ex-smoker x-ray concerning for gas and worsening deep space infection at risk of limb loss //no indicated surgical revascularization currently by vascular Extensive bilateral plaque ON ARTERIAL DOPPLER . 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 There are diffuse abnormal monophasic waveforms and low velocities of the visualized left runoff vessels. FEN - ADA diet, npo after midnight PPX - heparin FULL CODE Dispo - inpatient for 2 midnights ID CONSULT ORTHO CONSULT Cont Zosyn d/c Vanc Add Zyvox Debridement vascular surgery consult 38 min pt exam, chart review, > 50% of time spent with exam, chart review, pt care coordination Vitals Vitals Vital Signs Date Time Temp Pulse Resp B/P (MAP) Pulse Ox O2 Delivery O2 Flow Rate FiO2 08/18/19 08:59 62 126/54 08/18/19 07:00 98.1 18 92 Room Air 98.1 Physical Exam General: Alert, Oriented X3, Cooperative, No acute distress Lungs: Clear Abdomen: Normal bowel sounds, Soft, No tenderness, No hepatosplenomegaly, No masses Extremities: No clubbing, No cyanosis, No edema, Normal pulses, No tenderness/swelling Skin: Other (Right plantar ulcer 1st MTP, left dorsal ulcer. Venous stasis dermatitis) Labs LABS Right lower extremity venous ultrasound, : History: History of DVT Duplex evaluation including grayscale, color flow and spectral Doppler analysis was performed. The femoral veins show no filling defects to suggest DVT. The visualized calf veins are unremarkable. Right popliteal vein is still incompletely compressible. The pattern is unchanged compared to the study from August 2018. There is flow through the popliteal vein with color imaging and Doppler with augmentation. IMPRESSION: 1. 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 2. No new deep venous thrombosis. Electronically signed by: Quinton Christopher MD (08/17/2019 2:38 PM) [facility] DICTATED and SIGNED BY: QUINTON CHRISTOPHER MD DATE: 08/17/19 1438 Bilateral lower extremity arterial ultrasound History:Diabetic ulcers bilaterally Findings: Multiple grayscale, color, and duplex spectral analysis sonographic images were acquired of the lower extremity arteries bilaterally. There is extensive plaque bilaterally. There are mostly biphasic waveforms of the right of the monophasic waveform of profunda femoris artery and triphasic waveform of the common femoral artery. On the left, there are monophasic waveforms beyond the popliteal artery, biphasic waveforms throughout the superficial femoral artery popliteal artery, triphasic waveform of the common femoral artery. 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 Velocities in cm/sec: RIGHT Common femoral artery 202 Profunda femoris artery 88 Proximal SFA 206 Mid SFA 104 Distal SFA 100 Popliteal artery 82 Posterior tibial artery 74 proximally and 71 distally Peroneal artery 77 Anterior tibial artery 58 Dorsalis pedis artery 54 LEFT: Common femoral artery 156 Profunda femoris artery 133 Proximal SFA 88 Mid SFA 95 Distal SFA 77 Popliteal artery 24 Posterior tibial artery 34 proximally and 29 distally Peroneal artery 18 Anterior tibial artery 36 Dorsalis pedis artery not seen Impression: 1. There is extensive bilateral plaque. 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 There are diffuse abnormal monophasic waveforms and low velocities of the visualized left runoff vessels. Electronically signed by: Shan Rainey MD (08/17/2019 6:17 PM) [facility] Laboratory Tests Test 08/17/19 13:29 08/17/19 17:20 08/17/19 20:20 08/18/19 01:07 White Blood Count 17.8 x10^3/uL (4.0-11.0) Red Blood Count 3.61 x10^6/uL (4.30-5.70) Hemoglobin 11.3 g/dL (13.0-17.5) Hematocrit 32.8 % (39.0-53.0) Mean Corpuscular Volume 91 fL (79-100) Mean Corpuscular Hemoglobin 31 pg (25-35) Mean Corpuscular Hemoglobin Concent 34 g/dL (31-37) Red Cell Distribution Width 14.5 % (11.5-14.5) Platelet Count 189 x10^3/uL (140-400) Neutrophils (%) (Auto) 90 % (31-73) Lymphocytes (%) (Auto) 5 % (24-48) Monocytes (%) (Auto) 5 % (0-9) Eosinophils (%) (Auto) 0 % (0-3) Basophils (%) (Auto) 0 % (0-3) Neutrophils # (Auto) 15.9 x10^3/uL (1.8-7.7) Lymphocytes # (Auto) 0.9 x10^3/uL (1.0-4.8) Monocytes # (Auto) 0.9 x10^3/uL (0.0-1.1) Eosinophils # (Auto) 0.0 x10^3/uL (0.0-0.7) Basophils # (Auto) 0.0 x10^3/uL (0.0-0.2) Segmented Neutrophils % 86 % (35-66) Band Neutrophils % 8 % (0-9) Lymphocytes % 2 % (24-48) Monocytes % 4 % (0-10) Platelet Estimate Adequate (ADEQUATE) Sodium Level 140 mmol/L (136-145) Potassium Level 5.1 mmol/L (3.5-5.1) Chloride Level 104 mmol/L (98-107) Carbon Dioxide Level 25 mmol/L (21-32) Anion Gap 11 (6-14) Blood Urea Nitrogen 31 mg/dL (8-26) Creatinine 2.2 mg/dL (0.7-1.3) Estimated GFR (Cockcroft-Gault) 34.9 Glucose Level 156 mg/dL (70-99) Lactic Acid Level 2.2 mmol/L (0.4-2.0) 1.1 mmol/L (0.4-2.0) Calcium Level 8.3 mg/dL (8.5-10.1) Glucose (Fingerstick) 111 mg/dL (70-99) Heparin Anti-Xa Act, Unfractionated > 1.10 IU/mL (0.30-0.70) Test 08/18/19 07:30 08/18/19 07:47 Heparin Anti-Xa Act, Unfractionated > 1.10 IU/mL (0.30-0.70) Glucose (Fingerstick) 110 mg/dL (70-99) Assessment and Plan Assessmemt and Plan Problems Medical Problems: (1) EMERALD (acute kidney injury) Status: Acute (2) Left foot infection Status: Acute (3) Sepsis Status: Acute Comment Review of Relevant I have reviewed the following items milla (where applicable) has been applied. Labs Laboratory Tests Test 08/17/19 13:29 08/17/19 17:20 08/17/19 20:20 08/18/19 01:07 White Blood Count 17.8 x10^3/uL (4.0-11.0) Red Blood Count 3.61 x10^6/uL (4.30-5.70) Hemoglobin 11.3 g/dL (13.0-17.5) Hematocrit 32.8 % (39.0-53.0) Mean Corpuscular Volume 91 fL (79-100) Mean Corpuscular Hemoglobin 31 pg (25-35) Mean Corpuscular Hemoglobin Concent 34 g/dL (31-37) Red Cell Distribution Width 14.5 % (11.5-14.5) Platelet Count 189 x10^3/uL (140-400) Neutrophils (%) (Auto) 90 % (31-73) Lymphocytes (%) (Auto) 5 % (24-48) Monocytes (%) (Auto) 5 % (0-9) Eosinophils (%) (Auto) 0 % (0-3) Basophils (%) (Auto) 0 % (0-3) Neutrophils # (Auto) 15.9 x10^3/uL (1.8-7.7) Lymphocytes # (Auto) 0.9 x10^3/uL (1.0-4.8) Monocytes # (Auto) 0.9 x10^3/uL (0.0-1.1) Eosinophils # (Auto) 0.0 x10^3/uL (0.0-0.7) Basophils # (Auto) 0.0 x10^3/uL (0.0-0.2) Segmented Neutrophils % 86 % (35-66) Band Neutrophils % 8 % (0-9) Lymphocytes % 2 % (24-48) Monocytes % 4 % (0-10) Platelet Estimate Adequate (ADEQUATE) Sodium Level 140 mmol/L (136-145) Potassium Level 5.1 mmol/L (3.5-5.1) Chloride Level 104 mmol/L (98-107) Carbon Dioxide Level 25 mmol/L (21-32) Anion Gap 11 (6-14) Blood Urea Nitrogen 31 mg/dL (8-26) Creatinine 2.2 mg/dL (0.7-1.3) Estimated GFR (Cockcroft-Gault) 34.9 Glucose Level 156 mg/dL (70-99) Lactic Acid Level 2.2 mmol/L (0.4-2.0) 1.1 mmol/L (0.4-2.0) Calcium Level 8.3 mg/dL (8.5-10.1) Glucose (Fingerstick) 111 mg/dL (70-99) Heparin Anti-Xa Act, Unfractionated > 1.10 IU/mL (0.30-0.70) Test 08/18/19 07:30 08/18/19 07:47 Heparin Anti-Xa Act, Unfractionated > 1.10 IU/mL (0.30-0.70) Glucose (Fingerstick) 110 mg/dL (70-99) Laboratory Tests Test 08/17/19 13:29 08/17/19 17:20 08/17/19 20:20 08/18/19 01:07 White Blood Count 17.8 x10^3/uL (4.0-11.0) Red Blood Count 3.61 x10^6/uL (4.30-5.70) Hemoglobin 11.3 g/dL (13.0-17.5) Hematocrit 32.8 % (39.0-53.0) Mean Corpuscular Volume 91 fL (79-100) Mean Corpuscular Hemoglobin 31 pg (25-35) Mean Corpuscular Hemoglobin Concent 34 g/dL (31-37) Red Cell Distribution Width 14.5 % (11.5-14.5) Platelet Count 189 x10^3/uL (140-400) Neutrophils (%) (Auto) 90 % (31-73) Lymphocytes (%) (Auto) 5 % (24-48) Monocytes (%) (Auto) 5 % (0-9) Eosinophils (%) (Auto) 0 % (0-3) Basophils (%) (Auto) 0 % (0-3) Neutrophils # (Auto) 15.9 x10^3/uL (1.8-7.7) Lymphocytes # (Auto) 0.9 x10^3/uL (1.0-4.8) Monocytes # (Auto) 0.9 x10^3/uL (0.0-1.1) Eosinophils # (Auto) 0.0 x10^3/uL (0.0-0.7) Basophils # (Auto) 0.0 x10^3/uL (0.0-0.2) Segmented Neutrophils % 86 % (35-66) Band Neutrophils % 8 % (0-9) Lymphocytes % 2 % (24-48) Monocytes % 4 % (0-10) Platelet Estimate Adequate (ADEQUATE) Sodium Level 140 mmol/L (136-145) Potassium Level 5.1 mmol/L (3.5-5.1) Chloride Level 104 mmol/L (98-107) Carbon Dioxide Level 25 mmol/L (21-32) Anion Gap 11 (6-14) Blood Urea Nitrogen 31 mg/dL (8-26) Creatinine 2.2 mg/dL (0.7-1.3) Estimated GFR (Cockcroft-Gault) 34.9 Glucose Level 156 mg/dL (70-99) Lactic Acid Level 2.2 mmol/L (0.4-2.0) 1.1 mmol/L (0.4-2.0) Calcium Level 8.3 mg/dL (8.5-10.1) Glucose (Fingerstick) 111 mg/dL (70-99) Heparin Anti-Xa Act, Unfractionated > 1.10 IU/mL (0.30-0.70) Test 08/18/19 07:30 08/18/19 07:47 Heparin Anti-Xa Act, Unfractionated > 1.10 IU/mL (0.30-0.70) Glucose (Fingerstick) 110 mg/dL (70-99) Medications Current Medications Sodium Chloride 1,000 ml @ 1,000 mls/hr 1X ONCE IV Last administered on 08/17/19at 16:17; Start 08/17/19 at 15:15; Stop 08/17/19 at 16:14; Status DC Piperacillin Sod/ Tazobactam Sod 3.375 gm/Sodium Chloride 50 ml @ 100 mls/hr 1X ONCE IV Last administered on 08/17/19at 16:17; Start 08/17/19 at 15:30; Stop 08/17/19 at 15:59; Status DC Allopurinol (Zyloprim) 100 mg DAILY PO Last administered on 08/18/19 09:01; Start 08/18/19 at 09:00 Ascorbic Acid (Vitamin C) 500 mg DAILY PO Last administered on 08/18/19 08:58; Start 08/18/19 at 09:00 Carvedilol (Coreg) 3.125 mg BIDWMEALS PO Last administered on 08/18/19 08:59; Start 08/18/19 at 08:00 Vitamin D (Vitamin D3) 2,000 unit DAILY PO Last administered on 08/18/19 08:59; Start 08/18/19 at 09:00 Gabapentin (Neurontin) 100 mg QID PO Last administered on 08/18/19at 08:59; Start 08/17/19 at 21:00 Simvastatin (Zocor) 40 mg QHS PO Last administered on 08/17/19at 21:45; Start 08/17/19 at 21:00 Insulin Glargine (Lantus Syringe) 15 unit QHS SQ Last administered on 08/17/19at 21:50; Start 08/17/19 at 21:00 Heparin Sodium/ Dextrose 250 ml @ 0 mls/hr CONT PRN IV PER PROTOCOL Last administered on 08/17/19at 18:44; Start 08/17/19 at 17:45 Heparin Sodium (Porcine) (Heparin Sodium) 3,250 unit PRN Q6HRS PRN IV FOR UFH LEVEL LESS THAN 0.2 Last administered on 08/17/19at 18:45; Start 08/17/19 at 17:45 Heparin Sodium (Porcine) (Heparin Sodium) 1,600 unit PRN Q6HRS PRN IV FOR UFH LEVEL 0.2 - 0.29; Start 08/17/19 at 17:45 Insulin Human Lispro (HumaLOG) 0-7 UNITS TIDACHC SQ ; Start 08/17/19 at 21:00 Dextrose (Dextrose 50%-Water Syringe) 12.5 gm PRN Q15MIN PRN IV SEE COMMENTS; Start 08/17/19 at 17:45 Vancomycin HCl 2 gm/Sodium Chloride 500 ml @ 250 mls/hr 1X ONCE IV Last administered on 08/17/19at 22:15; Start 08/17/19 at 18:00; Stop 08/17/19 at 19:59; Status DC Piperacillin Sod/ Tazobactam Sod (Zosyn Per Pharmacy) 1 each PRN DAILY PRN MC SEE COMMENTS; Start 08/17/19 at 17:45 Sodium Chloride 1,000 ml @ 100 mls/hr 1X ONCE IV Last administered on 08/17/19at 20:56; Start 08/17/19 at 18:00; Stop 08/18/19 at 03:59; Status DC Piperacillin Sod/ Tazobactam Sod 2.25 gm/Sodium Chloride 50 ml @ 100 mls/hr Q6HRS IV ; Start 08/17/19 at 18:00; Status Cancel Piperacillin Sod/ Tazobactam Sod 2.25 gm/Sodium Chloride 50 ml @ 100 mls/hr Q6HRS IV Last administered on 08/18/19at 06:09; Start 08/17/19 at 23:00 Active Scripts Active Carvedilol (Carvedilol) 3.125 Mg Tablet 3.125 Mg PO BIDWMEALS 30 Days Humalog (Insulin Lispro) 100 Unit/1 Ml Insuln.pen 0 Units SQ QIDACHS 30 Days Eliquis (Apixaban) 5 Mg Tablet 5 Mg PO BID 30 Days Reported Vitamin E (Vitamin E Mixed) 400 Unit Capsule 400 Unit PO PRN DAILY PRN [employer] Capsule ([employer] Xtr/Zinc Picolin) 1 Each Capsule 1 Each PO PRN DAILY PRN Garlic Oil (Garlic) 1,000 Mg Capsule 1,000 Mg PO PRN DAILY PRN Cinnamon (Cinnamon Bark) 500 Mg Capsule 500 Mg PO PRN DAILY PRN Cetirizine Hcl 10 Mg Tablet 1 Tab PO PRN DAILY PRN Lantus (Insulin Glargine,Hum.rec.anlog) 100 Unit/1 Ml Vial 30 Unit SQ QHS Lantus (Insulin Glargine,Hum.rec.anlog) 100 Unit/1 Ml Vial 35 Unit SQ [id number] Itch Relief (Clotrimazole) 15 Gm Cream..g. 1 Rhiannon TP PRN BID PRN 14 Days Apply to right lower leg Simvastatin 40 Mg Tablet 1 Tab PO QHS Aspirin 81 Mg Tab.chew 1 Tab PO DAILY Gabapentin (Gabapentin) 100 Mg Capsule 100 Mg PO QHS Allopurinol 100 Mg Tablet 1 Tab PO DAILY Vitamin D3 (Cholecalciferol (Vitamin D3)) 1,000 Unit Tablet 1,000 Unit PO DAILY Silvadene (Silver Sulfadiazine) 20 Gm Cream..g. 1 Rhiannon TP BID [place] 3 Fish Oil Softgel ([place]-3 Fatty Acids/Fish Oil) 1 Each Capsule.dr 1 Each PO PRN DAILY PRN Ascorbic Acid 500 Mg Tablet 500 Mg PO PRN DAILY PRN Lisinopril 20 Mg Tablet 1 Tab PO DAILY Furosemide 20 Mg Tablet 20 Mg PO DAILY Vitals/I & O Vital Sign - Last 24 Hours 08/17/19 08/17/19 08/17/19 08/17/19 12:41 14:33 15:03 15:33 Temp 98.6 98.6 Pulse 76 59 64 69 Resp 14 B/P (MAP) 153/65 (94) 135/85 (102) 131/82 (98) 132/83 (99) Pulse Ox 94 100 100 100 O2 Delivery Room Air Room Air Room Air Room Air 08/17/19 08/17/19 08/17/19 08/17/19 15:40 16:10 16:40 17:10 Pulse 69 66 65 65 B/P (MAP) 131/57 (81) 132/55 (80) 143/95 (111) 127/57 (80) Pulse Ox 97 98 66 64 O2 Delivery Room Air Room Air Room Air Room Air 08/17/19 08/17/19 08/17/19 08/17/19 17:40 18:10 18:40 18:50 Pulse 66 63 62 B/P (MAP) 138/64 (88) 120/54 (76) 147/66 (93) Pulse Ox 66 64 62 O2 Delivery Room Air Room Air Room Air Room Air 08/17/19 08/17/19 08/17/19 08/17/19 19:10 19:45 20:00 23:00 Temp 98.2 98.3 98.2 98.3 Pulse 66 64 66 Resp 18 18 B/P (MAP) 151/69 (96) 149/33 (71) 123/84 (97) Pulse Ox 98 97 94 O2 Delivery Room Air Room Air Room Air Room Air 08/18/19 08/18/19 08/18/19 03:00 07:00 08:59 Temp 97.6 98.1 97.6 98.1 Pulse 66 62 62 Resp 18 18 B/P (MAP) 115/41 (65) 126/54 (78) 126/54 Pulse Ox 94 92 O2 Delivery Room Air Room Air Intake and Output 08/17/19 08/17/19 08/18/19 15:00 23:00 07:00 Intake Total 1050 ml 600 ml Balance 1050 ml 600 ml Justicifation of Admission Dx: Justifications for Admission: Justification of Admission Dx: Yes Sepsis: Infection MICHELLE PARKER MD Aug 18, 2019 09:22
--- NOTE | 2019-08-18 09:39 | PDOC2 ---
CONSULT Date of Consult Date of Consult DATE: 08/18/19 TIME: 09:29 Reason for Consult Reason for Consult: EMERALD Referring Physician Referring Physician: Dr. Guy Source Source: Chart review History of Present Illness Reason for Visit: Pt is a 83yo CM , he is a and goes to [facility] for his care , w/ PMHx DVT RLE with PE around 2012, DM2, CKD, HTN, ex-smoker who presents to ED c/o increased pain in his right thigh and toe, and a wound on the plantar aspect of his left foot. Patient states he has been being treated at the wound care center for the wound on his foot but it is not getting any better and was advised to be evaluated in the ED He denies any fever, cough, shortness of breath, nausea, vomiting, or abdominal pain. He denies any rash, he states that his right lower extremity is always discolored due to chronic venous stasis dermatitis. He denies any drainage or bleeding from the sore on the bottom of his right foot. Denies any urinary complaints He states he sees Dr. Verdugo, retail wireless sales representative at [facility] , every 6 months . He thinks his Kidney function is 43-44 and has CKD sec to DM . Denies use of NSAID's Currently denies any complaints X-ray right foot with gas subcutaneous gas. Past Medical History Cardiovascular: HTN, Hyperlipidemia Pulmonary: COPD, Other CENTRAL NERVOUS SYSTEM: Periperal neuropathy GI: GERD Heme/Onc: Other Hepatobiliary: No pertinent hx Psych: No pertinent hx Musculoskeletal: Osteoarthritis Rheumatologic: Gout Infectious disease: No pertinent hx Renal/: Chronic renal insuff, Benign prostatic enlarg. Endocrine: Diabetes Past Surgical History Past Surgical History: No pertinent history Family History Family History: Diabetes Social History Quit ALCOHOL: none Drugs: None Lives: with Family Current Problem List Problem List Problems Medical Problems: (1) EMERALD (acute kidney injury) Status: Acute (2) Left foot infection Status: Acute (3) Sepsis Status: Acute Current Medications Current Medications Current Medications Sodium Chloride 1,000 ml @ 1,000 mls/hr 1X ONCE IV Last administered on 08/17/19at 16:17; Start 08/17/19 at 15:15; Stop 08/17/19 at 16:14; Status DC Piperacillin Sod/ Tazobactam Sod 3.375 gm/Sodium Chloride 50 ml @ 100 mls/hr 1X ONCE IV Last administered on 08/17/19 16:17; Start 08/17/19 at 15:30; Stop 08/17/19 at 15:59; Status DC Allopurinol (Zyloprim) 100 mg DAILY PO Last administered on 08/18/19 09:01; Start 08/18/19 at 09:00 Ascorbic Acid (Vitamin C) 500 mg DAILY PO Last administered on 08/18/19 08:58; Start 08/18/19 at 09:00 Carvedilol (Coreg) 3.125 mg BIDWMEALS PO Last administered on 08/18/19 08:59; Start 08/18/19 at 08:00 Vitamin D (Vitamin D3) 2,000 unit DAILY PO Last administered on 08/18/19 08:59; Start 08/18/19 at 09:00 Gabapentin (Neurontin) 100 mg QID PO Last administered on 08/18/19 08:59; Start 08/17/19 at 21:00 Simvastatin (Zocor) 40 mg QHS PO Last administered on 08/17/19 21:45; Start 08/17/19 at 21:00 Insulin Glargine (Lantus Syringe) 15 unit QHS SQ Last administered on 08/17/19 21:50; Start 08/17/19 at 21:00 Heparin Sodium/ Dextrose 250 ml @ 0 mls/hr CONT PRN IV PER PROTOCOL Last administered on 08/17/19at 18:44; Start 08/17/19 at 17:45 Heparin Sodium (Porcine) (Heparin Sodium) 3,250 unit PRN Q6HRS PRN IV FOR UFH LEVEL LESS THAN 0.2 Last administered on 08/17/19at 18:45; Start 08/17/19 at 17:45 Heparin Sodium (Porcine) (Heparin Sodium) 1,600 unit PRN Q6HRS PRN IV FOR UFH LEVEL 0.2 - 0.29; Start 08/17/19 at 17:45 Insulin Human Lispro (HumaLOG) 0-7 UNITS TIDACHC SQ ; Start 08/17/19 at 21:00 Dextrose (Dextrose 50%-Water Syringe) 12.5 gm PRN Q15MIN PRN IV SEE COMMENTS; Start 08/17/19 at 17:45 Vancomycin HCl 2 gm/Sodium Chloride 500 ml @ 250 mls/hr 1X ONCE IV Last administered on 08/17/19at 22:15; Start 08/17/19 at 18:00; Stop 08/17/19 at 19:59; Status DC Piperacillin Sod/ Tazobactam Sod (Zosyn Per Pharmacy) 1 each PRN DAILY PRN MC SEE COMMENTS; Start 08/17/19 at 17:45 Sodium Chloride 1,000 ml @ 100 mls/hr 1X ONCE IV Last administered on 08/17/19at 20:56; Start 08/17/19 at 18:00; Stop 08/18/19 at 03:59; Status DC Piperacillin Sod/ Tazobactam Sod 2.25 gm/Sodium Chloride 50 ml @ 100 mls/hr Q6 HRS IV ; Start 08/17/19 at 18:00; Status Cancel Piperacillin Sod/ Tazobactam Sod 2.25 gm/Sodium Chloride 50 ml @ 100 mls/hr Q6H RS IV Last administered on 08/18/19at 06:09; Start 08/17/19 at 23:00 Active Scripts Active Carvedilol (Carvedilol) 3.125 Mg Tablet 3.125 Mg PO BIDWMEALS 30 Days Humalog (Insulin Lispro) 100 Unit/1 Ml Insuln.pen 0 Units SQ QIDACHS 30 Days Eliquis (Apixaban) 5 Mg Tablet 5 Mg PO BID 30 Days Reported Vitamin E (Vitamin E Mixed) 400 Unit Capsule 400 Unit PO PRN DAILY PRN [place] Capsule ([place] Xtr/Zinc Picolin) 1 Each Capsule 1 Each PO PRN DAILY PRN Garlic Oil (Garlic) 1,000 Mg Capsule 1,000 Mg PO PRN DAILY PRN Cinnamon (Cinnamon Bark) 500 Mg Capsule 500 Mg PO PRN DAILY PRN Cetirizine Hcl 10 Mg Tablet 1 Tab PO PRN DAILY PRN Lantus (Insulin Glargine,Hum.rec.anlog) 100 Unit/1 Ml Vial 30 Unit SQ QHS Lantus (Insulin Glargine,Hum.rec.anlog) 100 Unit/1 Ml Vial 35 Unit SQ DAILYWBKFT Itch Relief (Clotrimazole) 15 Gm Cream..g. 1 Rhiannon TP PRN BID PRN 14 Days Apply to right lower leg Simvastatin 40 Mg Tablet 1 Tab PO QHS Aspirin 81 Mg Tab.chew 1 Tab PO DAILY Gabapentin (Gabapentin) 100 Mg Capsule 100 Mg PO QHS Allopurinol 100 Mg Tablet 1 Tab PO DAILY Vitamin D3 (Cholecalciferol (Vitamin D3)) 1,000 Unit Tablet 1,000 Unit PO DAILY Silvadene (Silver Sulfadiazine) 20 Gm Cream..g. 1 Rhiannon TP BID [place] 3 Fish Oil Softgel ([place]-3 Fatty Acids/Fish Oil) 1 Each Capsule.dr 1 Each PO PRN DAILY PRN Ascorbic Acid 500 Mg Tablet 500 Mg PO PRN DAILY PRN Lisinopril 20 Mg Tablet 1 Tab PO DAILY Furosemide 20 Mg Tablet 20 Mg PO DAILY Allergies Allergies: Coded Allergies: rosiglitazone (Verified Allergy, Intermediate, 01/10/19) ROS Review of System Per HPI Physical Exam Physical Exam General: No acute distress HEENT: Atraumatic, PERRLA, EOMI, Mucous membr. moist/pink Neck supple Lungs: Clear to auscultation, Non labored Heart: S1S2, RRR, Abdomen: Soft, No tenderness, obese Extremities: No clubbing, No cyanosis, No edema, Skin: Right plantar ulcer 1st MTP, left dorsal ulcer. Venous stasis Rt >Lt Neuro: grossly normal Psych/Mental Status: Mental status NL, Mood NL No Treviño, No CVA or SP tenderness Vital Signs Vital Signs Date Time Temp Pulse Resp B/P (MAP) Pulse Ox O2 Delivery O2 Flow Rate FiO2 08/18/19 08:59 62 126/54 08/18/19 07:00 98.1 18 92 Room Air 98.1 Assessment & Plan EMERALD- Vasomotor, UA unremarkable , CT in 2018 Kidneys and bladder unremarkable E-Lytes stable, Improving with IVF Supportive care, I/O, avoid Nephrotoxin CKD 3 Baseline Cr 2.0 in 2019 at [facility] Pt sees Dr. Verdugo Ultrasonic Hand Solderer at [facility] q 6 months , eGFR 43-44 per Pt HypoCalcemia- Ca Midly low, monitor Takes Vit D at home Right MTP plantar foot ulcer - diabetic infected ulcer with subcutaneous gas Currently on Abx , Ortho and vascular consulted PVD - Had vascular studies done December 2018 with PVD blood flow to the right leg decreased blood flow to anterior and left leg. DVT RLE with PE around 2012 - on eliquis, Left dorsal 1st toe ulcer DM2 - per Primary HTN -On Lisinopril and Lasix at Home Labs Labs Laboratory Tests Test 08/17/19 13:29 08/17/19 17:20 08/17/19 20:20 08/18/19 01:07 White Blood Count 17.8 x10^3/uL (4.0-11.0) Red Blood Count 3.61 x10^6/uL (4.30-5.70) Hemoglobin 11.3 g/dL (13.0-17.5) Hematocrit 32.8 % (39.0-53.0) Mean Corpuscular Volume 91 fL (79-100) Mean Corpuscular Hemoglobin 31 pg (25-35) Mean Corpuscular Hemoglobin Concent 34 g/dL (31-37) Red Cell Distribution Width 14.5 % (11.5-14.5) Platelet Count 189 x10^3/uL (140-400) Neutrophils (%) (Auto) 90 % (31-73) Lymphocytes (%) (Auto) 5 % (24-48) Monocytes (%) (Auto) 5 % (0-9) Eosinophils (%) (Auto) 0 % (0-3) Basophils (%) (Auto) 0 % (0-3) Neutrophils # (Auto) 15.9 x10^3/uL (1.8-7.7) Lymphocytes # (Auto) 0.9 x10^3/uL (1.0-4.8) Monocytes # (Auto) 0.9 x10^3/uL (0.0-1.1) Eosinophils # (Auto) 0.0 x10^3/uL (0.0-0.7) Basophils # (Auto) 0.0 x10^3/uL (0.0-0.2) Segmented Neutrophils % 86 % (35-66) Band Neutrophils % 8 % (0-9) Lymphocytes % 2 % (24-48) Monocytes % 4 % (0-10) Platelet Estimate Adequate (ADEQUATE) Sodium Level 140 mmol/L (136-145) Potassium Level 5.1 mmol/L (3.5-5.1) Chloride Level 104 mmol/L (98-107) Carbon Dioxide Level 25 mmol/L (21-32) Anion Gap 11 (6-14) Blood Urea Nitrogen 31 mg/dL (8-26) Creatinine 2.2 mg/dL (0.7-1.3) Estimated GFR (Cockcroft-Gault) 34.9 Glucose Level 156 mg/dL (70-99) Lactic Acid Level 2.2 mmol/L (0.4-2.0) 1.1 mmol/L (0.4-2.0) Calcium Level 8.3 mg/dL (8.5-10.1) Glucose (Fingerstick) 111 mg/dL (70-99) Heparin Anti-Xa Act, Unfractionated > 1.10 IU/mL (0.30-0.70) Test 08/18/19 07:30 08/18/19 07:47 Heparin Anti-Xa Act, Unfractionated > 1.10 IU/mL (0.30-0.70) Glucose (Fingerstick) 110 mg/dL (70-99) Laboratory Tests Test 08/17/19 13:29 08/17/19 17:20 08/17/19 20:20 08/18/19 01:07 White Blood Count 17.8 x10^3/uL (4.0-11.0) Red Blood Count 3.61 x10^6/uL (4.30-5.70) Hemoglobin 11.3 g/dL (13.0-17.5) Hematocrit 32.8 % (39.0-53.0) Mean Corpuscular Volume 91 fL (79-100) Mean Corpuscular Hemoglobin 31 pg (25-35) Mean Corpuscular Hemoglobin Concent 34 g/dL (31-37) Red Cell Distribution Width 14.5 % (11.5-14.5) Platelet Count 189 x10^3/uL (140-400) Neutrophils (%) (Auto) 90 % (31-73) Lymphocytes (%) (Auto) 5 % (24-48) Monocytes (%) (Auto) 5 % (0-9) Eosinophils (%) (Auto) 0 % (0-3) Basophils (%) (Auto) 0 % (0-3) Neutrophils # (Auto) 15.9 x10^3/uL (1.8-7.7) Lymphocytes # (Auto) 0.9 x10^3/uL (1.0-4.8) Monocytes # (Auto) 0.9 x10^3/uL (0.0-1.1) Eosinophils # (Auto) 0.0 x10^3/uL (0.0-0.7) Basophils # (Auto) 0.0 x10^3/uL (0.0-0.2) Segmented Neutrophils % 86 % (35-66) Band Neutrophils % 8 % (0-9) Lymphocytes % 2 % (24-48) Monocytes % 4 % (0-10) Platelet Estimate Adequate (ADEQUATE) Sodium Level 140 mmol/L (136-145) Potassium Level 5.1 mmol/L (3.5-5.1) Chloride Level 104 mmol/L (98-107) Carbon Dioxide Level 25 mmol/L (21-32) Anion Gap 11 (6-14) Blood Urea Nitrogen 31 mg/dL (8-26) Creatinine 2.2 mg/dL (0.7-1.3) Estimated GFR (Cockcroft-Gault) 34.9 Glucose Level 156 mg/dL (70-99) Lactic Acid Level 2.2 mmol/L (0.4-2.0) 1.1 mmol/L (0.4-2.0) Calcium Level 8.3 mg/dL (8.5-10.1) Glucose (Fingerstick) 111 mg/dL (70-99) Heparin Anti-Xa Act, Unfractionated > 1.10 IU/mL (0.30-0.70) Test 08/18/19 07:30 08/18/19 07:47 Heparin Anti-Xa Act, Unfractionated > 1.10 IU/mL (0.30-0.70) Glucose (Fingerstick) 110 mg/dL (70-99) Review All relevant outside records, renal labs, imaging studies, telemetry/EKG's were reviewed. Images Images IMPRESSION: 1. Gas in the soft tissues. 2. Osteoarthritis first metatarsal phalangeal joint. 3. No fracture or bony destructive process. RLE venous doppler: Duplex evaluation including grayscale, color flow and spectral Doppler analysis was performed. The femoral veins show no filling defects to suggest DVT. The visualized calf veins are unremarkable. Right popliteal vein is still incompletely compressible. The pattern is unchanged compared to the study from August 2018. There is flow through the popl iteal vein with color imaging and Doppler with augmentation. IMPRESSION: 1. 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 2. No new deep venous thrombosis. GURMEET LINDA MD Aug 18, 2019 09:39
--- NOTE | 2019-08-18 10:07 | PDOC2 ---
CONSULT Date of Consult Date of Consult DATE: 08/18/19 TIME: 10:01 Reason for Consult Reason for Consult: Right foot diabetic foot ulcer History of Present Illness Reason for Visit: This a very pleasant 83-year-old male who has a mal perforans ulcer involving the plantar surface of the right foot. He has been seen in the wound care clinic and now presents with concern for worsening infection. He had an x-ray concerning for gas and worsening deep space infection. He denies any significant constitutional symptoms. He denies any peripheral arterial interventions in the past. He denies claudication symptoms. He does admit to significant peripheral neuropathy bilaterally. Past Medical History Cardiovascular: HTN, Hyperlipidemia Pulmonary: COPD, Other CENTRAL NERVOUS SYSTEM: Periperal neuropathy GI: GERD Heme/Onc: Other Hepatobiliary: No pertinent hx Psych: No pertinent hx Musculoskeletal: Osteoarthritis Rheumatologic: Gout Infectious disease: No pertinent hx Renal/: Chronic renal insuff, Benign prostatic enlarg. Endocrine: Diabetes Past Surgical History Past Surgical History: No pertinent history Family History Family History: Coronary Artery Disease, Diabetes, Heart Disease Social History Quit ALCOHOL: none Drugs: None Lives: with Family Current Problem List Problem List Problems Medical Problems: (1) EMERALD (acute kidney injury) Status: Acute (2) Left foot infection Status: Acute (3) Sepsis Status: Acute Current Medications Current Medications Current Medications Sodium Chloride 1,000 ml @ 1,000 mls/hr 1X ONCE IV Last administered on 08/17/19at 16:17; Start 08/17/19 at 15:15; Stop 08/17/19 at 16:14; Status DC Piperacillin Sod/ Tazobactam Sod 3.375 gm/Sodium Chloride 50 ml @ 100 mls/hr 1X ONCE IV Last administered on 08/17/19at 16:17; Start 08/17/19 at 15:30; Stop 08/17/19 at 15:59; Status DC Allopurinol (Zyloprim) 100 mg DAILY PO Last administered on 08/18/19at 09:01; Start 08/18/19 at 09:00 Ascorbic Acid (Vitamin C) 500 mg DAILY PO Last administered on 08/18/19at 08:58; Start 08/18/19 at 09:00 Carvedilol (Coreg) 3.125 mg BIDWMEALS PO Last administered on 08/18/19at 08:59; Start 08/18/19 at 08:00 Vitamin D (Vitamin D3) 2,000 unit DAILY PO Last administered on 08/18/19at 08:59; Start 08/18/19 at 09:00 Gabapentin (Neurontin) 100 mg QID PO Last administered on 08/18/19at 08:59; Start 08/17/19 at 21:00 Simvastatin (Zocor) 40 mg QHS PO Last administered on 08/17/19at 21:45; Start 08/17/19 at 21:00 Insulin Glargine (Lantus Syringe) 15 unit QHS SQ Last administered on 08/17/19at 21:50; Start 08/17/19 at 21:00 Heparin Sodium/ Dextrose 250 ml @ 0 mls/hr CONT PRN IV PER PROTOCOL Last administered on 08/17/19at 18:44; Start 08/17/19 at 17:45 Heparin Sodium (Porcine) (Heparin Sodium) 3,250 unit PRN Q6HRS PRN IV FOR UFH LEVEL LESS THAN 0.2 Last administered on 08/17/19at 18:45; Start 08/17/19 at 17:45 Heparin Sodium (Porcine) (Heparin Sodium) 1,600 unit PRN Q6HRS PRN IV FOR UFH LEVEL 0.2 - 0.29; Start 08/17/19 at 17:45 Insulin Human Lispro (HumaLOG) 0-7 UNITS TIDACHC SQ ; Start 08/17/19 at 21:00 Dextrose (Dextrose 50%-Water Syringe) 12.5 gm PRN Q15MIN PRN IV SEE COMMENTS; Start 08/17/19 at 17:45 Vancomycin HCl 2 gm/Sodium Chloride 500 ml @ 250 mls/hr 1X ONCE IV Last administered on 08/17/19at 22:15; Start 08/17/19 at 18:00; Stop 08/17/19 at 19:59; Status DC Piperacillin Sod/ Tazobactam Sod (Zosyn Per Pharmacy) 1 each PRN DAILY PRN MC SEE COMMENTS; Start 08/17/19 at 17:45 Sodium Chloride 1,000 ml @ 100 mls/hr 1X ONCE IV Last administered on 08/17/19at 20:56; Start 08/17/19 at 18:00; Stop 08/18/19 at 03:59; Status DC Piperacillin Sod/ Tazobactam Sod 2.25 gm/Sodium Chloride 50 ml @ 100 mls/hr Q6HRS IV ; Start 08/17/19 at 18:00; Status Cancel Piperacillin Sod/ Tazobactam Sod 2.25 gm/Sodium Chloride 50 ml @ 100 mls/hr Q6HRS IV Last administered on 08/18/19at 06:09; Start 08/17/19 at 23:00 Active Scripts Active Carvedilol (Carvedilol) 3.125 Mg Tablet 3.125 Mg PO BIDWMEALS 30 Days Humalog (Insulin Lispro) 100 Unit/1 Ml Insuln.pen 0 Units SQ QIDACHS 30 Days Eliquis (Apixaban) 5 Mg Tablet 5 Mg PO BID 30 Days Reported Vitamin E (Vitamin E Mixed) 400 Unit Capsule 400 Unit PO PRN DAILY PRN [place] Capsule ([place] Xtr/Zinc Picolin) 1 Each Capsule 1 Each PO PRN DAILY PRN Garlic Oil (Garlic) 1,000 Mg Capsule 1,000 Mg PO PRN DAILY PRN Cinnamon (Cinnamon Bark) 500 Mg Capsule 500 Mg PO PRN DAILY PRN Cetirizine Hcl 10 Mg Tablet 1 Tab PO PRN DAILY PRN Lantus (Insulin Glargine,Hum.rec.anlog) 100 Unit/1 Ml Vial 30 Unit SQ QHS Lantus (Insulin Glargine,Hum.rec.anlog) 100 Unit/1 Ml Vial 35 Unit SQ DAILYWBKFT Itch Relief (Clotrimazole) 15 Gm Cream..g. 1 Rhiannon TP PRN BID PRN 14 Days Apply to right lower leg Simvastatin 40 Mg Tablet 1 Tab PO QHS Aspirin 81 Mg Tab.chew 1 Tab PO DAILY Gabapentin (Gabapentin) 100 Mg Capsule 100 Mg PO QHS Allopurinol 100 Mg Tablet 1 Tab PO DAILY Vitamin D3 (Cholecalciferol (Vitamin D3)) 1,000 Unit Tablet 1,000 Unit PO DAILY Silvadene (Silver Sulfadiazine) 20 Gm Cream..g. 1 Rhiannon TP BID [place] 3 Fish Oil Softgel ([place]-3 Fatty Acids/Fish Oil) 1 Each Capsule.dr 1 Each PO PRN DAILY PRN Ascorbic Acid 500 Mg Tablet 500 Mg PO PRN DAILY PRN Lisinopril 20 Mg Tablet 1 Tab PO DAILY Furosemide 20 Mg Tablet 20 Mg PO DAILY Allergies Allergies: Coded Allergies: rosiglitazone (Verified Allergy, Intermediate, 01/10/19) Physical Exam General: Alert, Oriented X3, Cooperative HEENT: PERRLA, Mucous membr. moist/pink Lungs: Clear to auscultation, Normal air movement Heart: Regular rate, Normal S1, Normal S2 Abdomen: Normal bowel sounds, Soft, No tenderness Extremities: No clubbing, No cyanosis, No edema, Other (Palpable right dorsalis pedis pulse, intact posterior tibial Doppler signal, intact left dorsalis pedis and posterior tibial Doppler signal) Skin: Other (Right plantar mal perforans ulcer with mild erythema, no significant purulent drainage, no obvious crepitance, large heaped callus) Neuro: Normal speech, Strength at 5/5 X4 ext, Normal tone, Cranial nerves 3-12 NL, Other (Diminished sensation to light touch bilaterally in his feet) Psych/Mental Status: Mental status NL, Mood NL MUSCULOSKELETAL: No deformity, No swelling, No muscular tenderness noted, Full range of motion without pain Vitals VITALS Vital Signs Date Time Temp Pulse Resp B/P (MAP) Pulse Ox O2 Delivery O2 Flow Rate FiO2 08/18/19 08:59 62 126/54 08/18/19 07:00 98.1 18 92 Room Air 98.1 Labs Labs Laboratory Tests Test 08/17/19 13:29 08/17/19 17:20 08/17/19 20:20 08/18/19 01:07 White Blood Count 17.8 x10^3/uL (4.0-11.0) Red Blood Count 3.61 x10^6/uL (4.30-5.70) Hemoglobin 11.3 g/dL (13.0-17.5) Hematocrit 32.8 % (39.0-53.0) Mean Corpuscular Volume 91 fL (79-100) Mean Corpuscular Hemoglobin 31 pg (25-35) Mean Corpuscular Hemoglobin Concent 34 g/dL (31-37) Red Cell Distribution Width 14.5 % (11.5-14.5) Platelet Count 189 x10^3/uL (140-400) Neutrophils (%) (Auto) 90 % (31-73) Lymphocytes (%) (Auto) 5 % (24-48) Monocytes (%) (Auto) 5 % (0-9) Eosinophils (%) (Auto) 0 % (0-3) Basophils (%) (Auto) 0 % (0-3) Neutrophils # (Auto) 15.9 x10^3/uL (1.8-7.7) Lymphocytes # (Auto) 0.9 x10^3/uL (1.0-4.8) Monocytes # (Auto) 0.9 x10^3/uL (0.0-1.1) Eosinophils # (Auto) 0.0 x10^3/uL (0.0-0.7) Basophils # (Auto) 0.0 x10^3/uL (0.0-0.2) Segmented Neutrophils % 86 % (35-66) Band Neutrophils % 8 % (0-9) Lymphocytes % 2 % (24-48) Monocytes % 4 % (0-10) Platelet Estimate Adequate (ADEQUATE) Sodium Level 140 mmol/L (136-145) Potassium Level 5.1 mmol/L (3.5-5.1) Chloride Level 104 mmol/L (98-107) Carbon Dioxide Level 25 mmol/L (21-32) Anion Gap 11 (6-14) Blood Urea Nitrogen 31 mg/dL (8-26) Creatinine 2.2 mg/dL (0.7-1.3) Estimated GFR (Cockcroft-Gault) 34.9 Glucose Level 156 mg/dL (70-99) Lactic Acid Level 2.2 mmol/L (0.4-2.0) 1.1 mmol/L (0.4-2.0) Calcium Level 8.3 mg/dL (8.5-10.1) Glucose (Fingerstick) 111 mg/dL (70-99) Heparin Anti-Xa Act, Unfractionated > 1.10 IU/mL (0.30-0.70) Test 08/18/19 07:30 08/18/19 07:47 Heparin Anti-Xa Act, Unfractionated > 1.10 IU/mL (0.30-0.70) Glucose (Fingerstick) 110 mg/dL (70-99) Laboratory Tests Test 08/17/19 13:29 08/17/19 17:20 08/17/19 20:20 08/18/19 01:07 White Blood Count 17.8 x10^3/uL (4.0-11.0) Red Blood Count 3.61 x10^6/uL (4.30-5.70) Hemoglobin 11.3 g/dL (13.0-17.5) Hematocrit 32.8 % (39.0-53.0) Mean Corpuscular Volume 91 fL (79-100) Mean Corpuscular Hemoglobin 31 pg (25-35) Mean Corpuscular Hemoglobin Concent 34 g/dL (31-37) Red Cell Distribution Width 14.5 % (11.5-14.5) Platelet Count 189 x10^3/uL (140-400) Neutrophils (%) (Auto) 90 % (31-73) Lymphocytes (%) (Auto) 5 % (24-48) Monocytes (%) (Auto) 5 % (0-9) Eosinophils (%) (Auto) 0 % (0-3) Basophils (%) (Auto) 0 % (0-3) Neutrophils # (Auto) 15.9 x10^3/uL (1.8-7.7) Lymphocytes # (Auto) 0.9 x10^3/uL (1.0-4.8) Monocytes # (Auto) 0.9 x10^3/uL (0.0-1.1) Eosinophils # (Auto) 0.0 x10^3/uL (0.0-0.7) Basophils # (Auto) 0.0 x10^3/uL (0.0-0.2) Segmented Neutrophils % 86 % (35-66) Band Neutrophils % 8 % (0-9) Lymphocytes % 2 % (24-48) Monocytes % 4 % (0-10) Platelet Estimate Adequate (ADEQUATE) Sodium Level 140 mmol/L (136-145) Potassium Level 5.1 mmol/L (3.5-5.1) Chloride Level 104 mmol/L (98-107) Carbon Dioxide Level 25 mmol/L (21-32) Anion Gap 11 (6-14) Blood Urea Nitrogen 31 mg/dL (8-26) Creatinine 2.2 mg/dL (0.7-1.3) Estimated GFR (Cockcroft-Gault) 34.9 Glucose Level 156 mg/dL (70-99) Lactic Acid Level 2.2 mmol/L (0.4-2.0) 1.1 mmol/L (0.4-2.0) Calcium Level 8.3 mg/dL (8.5-10.1) Glucose (Fingerstick) 111 mg/dL (70-99) Heparin Anti-Xa Act, Unfractionated > 1.10 IU/mL (0.30-0.70) Test 08/18/19 07:30 08/18/19 07:47 Heparin Anti-Xa Act, Unfractionated > 1.10 IU/mL (0.30-0.70) Glucose (Fingerstick) 110 mg/dL (70-99) Assessment/Plan Assessment/Plan Peripheral arterial disease--patient certainly has atherosclerosis noted within his peripheral arteries based on arterial duplex which I reviewed. Despite this, he has a palpable dorsalis pedis pulse in the right foot. There is no indicated surgical revascularization currently. I recommended orthopedic surgery debridement of the right plantar ulcer with likely negative pressure VAC placement. I did discuss this with Dr. Schmid with orthopedic surgery. If the patient develops poor wound healing, angiogram would be the next step of evaluation but I do not think this is indicated currently. I would recommend nonweightbearing to the foot with a forefoot offloading shoe. All questions were answered to patient satisfaction today. Jennifer Arevalo DO, FACS, RPVI JENNIFER AREVALO DO Aug 18, 2019 10:07
[2019-08-18 10:14] LABS: ALBUMIN 2.6 g/dL (3.4-5.0); CREATININE 1.9 mg/dL (0.7-1.3); GFR 41.4; PHOSPHORUS 3.8 mg/dL (2.6-4.7); POTASSIUM 4.2 mmol/L (3.5-5.1)
--- NOTE | 2019-08-18 10:45 | PDOC ---
Infectious Disease Note Vital Sign Vital Signs Vital Signs Date Time Temp Pulse Resp B/P (MAP) Pulse Ox O2 Delivery O2 Flow Rate FiO2 08/18/19 08:59 62 126/54 08/18/19 07:00 98.1 18 92 Room Air 98.1 Labs Lab Laboratory Tests Test 08/17/19 13:29 08/17/19 17:20 08/17/19 20:20 08/18/19 01:07 White Blood Count 17.8 x10^3/uL (4.0-11.0) Red Blood Count 3.61 x10^6/uL (4.30-5.70) Hemoglobin 11.3 g/dL (13.0-17.5) Hematocrit 32.8 % (39.0-53.0) Mean Corpuscular Volume 91 fL (79-100) Mean Corpuscular Hemoglobin 31 pg (25-35) Mean Corpuscular Hemoglobin Concent 34 g/dL (31-37) Red Cell Distribution Width 14.5 % (11.5-14.5) Platelet Count 189 x10^3/uL (140-400) Neutrophils (%) (Auto) 90 % (31-73) Lymphocytes (%) (Auto) 5 % (24-48) Monocytes (%) (Auto) 5 % (0-9) Eosinophils (%) (Auto) 0 % (0-3) Basophils (%) (Auto) 0 % (0-3) Neutrophils # (Auto) 15.9 x10^3/uL (1.8-7.7) Lymphocytes # (Auto) 0.9 x10^3/uL (1.0-4.8) Monocytes # (Auto) 0.9 x10^3/uL (0.0-1.1) Eosinophils # (Auto) 0.0 x10^3/uL (0.0-0.7) Basophils # (Auto) 0.0 x10^3/uL (0.0-0.2) Segmented Neutrophils % 86 % (35-66) Band Neutrophils % 8 % (0-9) Lymphocytes % 2 % (24-48) Monocytes % 4 % (0-10) Platelet Estimate Adequate (ADEQUATE) Sodium Level 140 mmol/L (136-145) Potassium Level 5.1 mmol/L (3.5-5.1) Chloride Level 104 mmol/L (98-107) Carbon Dioxide Level 25 mmol/L (21-32) Anion Gap 11 (6-14) Blood Urea Nitrogen 31 mg/dL (8-26) Creatinine 2.2 mg/dL (0.7-1.3) Estimated GFR (Cockcroft-Gault) 34.9 Glucose Level 156 mg/dL (70-99) Lactic Acid Level 2.2 mmol/L (0.4-2.0) 1.1 mmol/L (0.4-2.0) Calcium Level 8.3 mg/dL (8.5-10.1) Glucose (Fingerstick) 111 mg/dL (70-99) Heparin Anti-Xa Act, Unfractionated > 1.10 IU/mL (0.30-0.70) Test 08/18/19 07:30 08/18/19 07:47 Heparin Anti-Xa Act, Unfractionated > 1.10 IU/mL (0.30-0.70) Sodium Level 142 mmol/L (136-145) Potassium Level 4.2 mmol/L (3.5-5.1) Chloride Level 106 mmol/L (98-107) Carbon Dioxide Level 24 mmol/L (21-32) Anion Gap 12 (6-14) Blood Urea Nitrogen 27 mg/dL (8-26) Creatinine 1.9 mg/dL (0.7-1.3) Estimated GFR (Cockcroft-Gault) 41.4 Glucose Level 119 mg/dL (70-99) Calcium Level 8.0 mg/dL (8.5-10.1) Phosphorus Level 3.8 mg/dL (2.6-4.7) Albumin 2.6 g/dL (3.4-5.0) Glucose (Fingerstick) 110 mg/dL (70-99) Objective Assessment Right great toe plantar foot wound/callous - gas on XRAY likely secondary to open wound Leukocytosis CKD DM Plan Plan of Care Cont Zosyn No Further Vanc Add Zyvox Await Debridement F/u labs and cults D/w nursing Thank you # [id number] STACI VAZQUEZ MD Aug 18, 2019 10:45
[2019-08-18 11:00] VITALS: BP 117/56
--- NOTE | 2019-08-18 11:18 | CONS ---
DATE OF CONSULTATION: 08/18/2019 LOCATION: The patient's room 412. REQUESTING PHYSICIAN: Jono Guy MD REASON FOR CONSULTATION: Foot wound. 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 He states about 2 weeks ago, he underwent debridement at the [facility] and things were looking well. He has not been on any antibiotics. He states a couple of days ago, he had some chills, but subsequently resolved. Denies any ill contacts. He denies any fevers or chills or sweats currently. He has no headache, sinus issues, sore throat, cough or chest pain. No nausea, vomiting, no diarrhea. No dysuria, frequency, or urgency. Denies any trauma. His daughter works at [employer] in Finance Department and she took a picture and had it evaluated by Wound Care and subsequently was sent to Emergency Room on 08/16. He had a white count of 7.8. Creatinine was elevated at 2.2. He has been afebrile. He underwent an x-ray of his foot, showed gas and soft tissue, osteoarthritis of first metatarsophalangeal joint. No fracture or bony destructive process. 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 Lower extremity Dopplers were obtained. There is extensive bilateral plaque, left dorsalis pedis artery not visualized and presumably occluded, diffuse abnormal monophasic waveforms and low velocities of the visualized left runoff vessels. He was given a dose of vancomycin, has been placed on Zosyn. He has been evaluated by Vascular Surgery. He states he had good pulses. No need for any revascularization. Ortho has evaluated him as well. Currently, the patient is sitting in bed, states he feels he is not currently at baseline. He denies any recent antibiotics at home. Denies any previous skin infections, pneumonias or UTIs. PAST MEDICAL HISTORY: Positive for hypertension, hyperlipidemia, COPD, peripheral neuropathy, gastroesophageal reflux disease, osteoarthritis, gout, chronic kidney disease, BPH, diabetes. REVIEW OF SYSTEMS: Otherwise negative. ALLERGIES: LISTED ROSIGLITAZONE. SOCIAL HISTORY: He is currently an army vet. Quit smoking, no alcohol. Lives with family. He has no pets at home. Walks around in shoes or slippers. FAMILY HISTORY: Positive for diabetes, heart disease, coronary artery disease. CURRENT MEDICATIONS: Include a dose of vancomycin x 1, currently on Zosyn. He is on allopurinol, vitamin C, Coreg, vitamin D3, Neurontin, heparin, insulin, Zocor. PHYSICAL EXAMINATION: VITAL SIGNS: He has been afebrile, temperature is currently 98.1, pulse 62, respirations 18, blood pressure 126/54, satting 92% on room air. CONSTITUTIONAL: He is sitting upright in bed. He is pleasant, cooperative. He is in no acute distress. HEENT: Pupils are equal and reactive. He has normal conjunctivae. Oral cavity, pharynx was clear. NECK: Supple, without JVD. LUNGS: Decreased in the bases. HEART: S1, S2. ABDOMEN: Soft, nontender, nondistended with positive bowel sounds. EXTREMITIES: Without clubbing, cyanosis. His right plantar area below his great toe, he has an ulcer with surrounding callus. There is no purulent drainage. There is no crepitus. There is no odor. It is nontender. He does have a palpable pulse. SKIN: Warm to touch without signs of rash. NEUROLOGIC: He is nonfocal, answers questions, very pleasant, moves all extremities. PSYCHIATRIC: Affect is appropriate. LABORATORY VALUES: White count was 17.8, hemoglobin 11.3, platelets were 189, segs 86, bands are 8. Creatinine of 1.9 today. Glucose of 119. RADIOLOGY: Reviewed in history of present illness. IMPRESSION: 1. Right great toe plantar foot wound/callus gas on x-ray, likely secondary to open wound. 2. Leukocytosis. 3. Chronic kidney disease. 4. Diabetes. RECOMMENDATIONS: We will continue Zosyn. No further vancomycin. We will add Zyvox. Await debridement. Follow up labs and cultures. This was discussed with nursing. Thank you for allowing me to participate in the patient's care. If you have any questions, please do not hesitate to contact me. STACI VAZQUEZ MD DR: LATASHA/willa JOB#: [id number] / [id number]
[2019-08-18] MEDS: LINEZOLID 600 MG TABLET PO SCH ×2 (11:47→21:36)
--- NOTE | 2019-08-18 12:45 | NUR ---
spoke with pharmacist regarding heparin drip. she states that because he was on eliquis at home that it is interfering with our lab results and that we are going to try regulate the heparin with PTT. will draw a PTT at 1530 as ordered and go from there. Jeffery is doing well at this time. joyce smith ordered
[2019-08-18] MEDS: ANTI-COAG MONITOR BY PHARMACY. MC PRN (12:46)
[2019-08-18] MEDS ORDERED: HEPARIN for IV BOLUS 10,000 UNIT/10 ML VIAL. IV PRN ×4 (13:00)
[2019-08-18] MEDS ORDERED: HEPARIN 25,000UTS/250ML PREMIX 250 ML IV PRN (13:00)
--- NOTE | 2019-08-18 14:59 | NUR ---
SS following for discharge planning. SS reviewed pt chart and discussed with pt RN. Pt is from home with spouse and is currently on room air. Pt on IV Zosyn. SS will continue to follow for discharge planning.
[2019-08-18 15:00] VITALS: BP 123/60
--- NOTE | 2019-08-18 15:03 | NUR ---
Wound/Care Wound Type/Assessment: Right plantar foot DFU-dusky red, periwound thickened callus with dried blood blister beneath, no odor or fluctuance noted. Light red streaking and warmth extending from ankle to R groin, but no periwound redness noted. Treatment Recommendations/Plan: Iodoflex to wound bed, cover with foam and tape, recommend changing every 3 days. Pt would benefit from bedside debridement of callus and wound. Education provided: to pt re: offloading and treatment of DFU with antibiotics, wound dressings. Offloading surface/device: Half-shoe from [facility], per Dr. Regalado. Recommended Referrals/Tests: Ortho to evaluate Discharge Recommendations for dressings: See treatment plan above
--- NOTE | 2019-08-18 17:00 | NUR ---
PTT was critical result. according to the new protocol to hold heparin for 2 hrs. called pharmacy to verify plan. we are to hold the heparin for 1 hr and restart after decreasing it 3cc hr (300 units). original rate was 10.8 and now will be 7.8. and redraw a new PTT at 2345
--- NOTE | 2019-08-18 17:45 | NUR ---
heparin restarted at 7.8cc. PTT ordered Addendum: 08/18/19 at 1948 by SENAIT DEL CASTILLO RN new off loading shoe obtained from [facility]
[2019-08-18 19:30] VITALS: BP 152/59
[2019-08-18] MEDS ORDERED: IV NORMAL SALINE 1000ML BAG 1,000 ML IV SCH (20:45)
[2019-08-18] MEDS ORDERED: ONDANSETRON PF 4 MG/2 ML VIAL. IVP PRN (21:00)
[2019-08-18] MEDS ORDERED: INSULIN GLARGINE SYRINGE. SQ SCH (21:30)
[2019-08-18] MEDS: LACTOBACILLUS RHAMNOSUS GG 1 CAPSULE. PO SCH (21:35)
[2019-08-18] MEDS: SIMVASTATIN 40 MG TABLET. PO SCH (21:36)
[2019-08-18 21:53] LABS: BILIRUBIN,URINE NEGATIVE (NEG); CLARITY,URINE CLEAR; COLOR,URINE YELLOW; NITRITE,URINE NEGATIVE (NEG); PH,URINE 6.5 (<5.0-8.0); PROTEIN,URINE NEGATIVE (NEG-TRACE)
[2019-08-18 22:09] LABS: RBC,URINE 0 /HPF (0-2)
[2019-08-18 22:10] LABS: SQUAMOUS EPITHELIAL CELL,UR OCC /LPF; WBC,URINE 0 /HPF (0-4)
[2019-08-18 23:15] VITALS: BP 118/53
--- NOTE | 2019-08-19 02:45 | NUR ---
MED ADMINISTRATION NOTE: Patient's PTT not drawn until approximately 0100 d/t lab personnel being caught up in a code blue. PTT resulted 66. See eMAR for adjustments/details.
[2019-08-19 03:00] VITALS: BP 123/54
[2019-08-19 05:05] LABS: BASO # 0.1 x10^3/uL (0.0-0.2); BASO % 1 % (0-3); EOS # 0.6 x10^3/uL (0.0-0.7); EOS % 7 % (0-3); HEMATOCRIT 29.7 % (39.0-53.0); HEMOGLOBIN 10.1 g/dL (13.0-17.5); LYMPH # 1.6 x10^3/uL (1.0-4.8); LYMPH % 17 % (24-48); MEAN CORPUSCULAR HEMOGLOBIN 31 pg (25-35); MEAN CORPUSCULAR HGB CONC 34 g/dL (31-37); MEAN CORPUSCULAR VOLUME 91 fL (79-100); MONO # 0.8 x10^3/uL (0.0-1.1); MONO % 9 % (0-9); NEUT # 6.1 x10^3/uL (1.8-7.7); NEUT % 67 % (31-73); PLATELET COUNT 171 x10^3/uL (140-400); RED BLOOD COUNT 3.27 x10^6/uL (4.30-5.70); RED CELL DISTRIBUTION WIDTH 14.2 % (11.5-14.5); WHITE BLOOD COUNT 9.1 x10^3/uL (4.0-11.0)
[2019-08-19 05:39] LABS: CALCIUM 8.1 mg/dL (8.5-10.1); POTASSIUM 4.1 mmol/L (3.5-5.1)
[2019-08-19] MEDS: PIPERACILLIN/TAZOBACTAM 2.25 GM in IV NORMAL SALINE 50ML 50 ML IV SCH (05:53)
[2019-08-19 07:00] VITALS: BP 150/64
[2019-08-19] MEDS: INSULIN LISPRO 300 UNITS/3 ML VIAL. SQ SCH ×2 (07:30→11:30)
[2019-08-19] MEDS: LACTOBACILLUS RHAMNOSUS GG 1 CAPSULE. PO SCH (08:04)
[2019-08-19] MEDS: CHOLECALCIFEROL (VITAMIN D3) 1,000 UNIT TABLET PO SCH (08:04)
[2019-08-19] MEDS: LINEZOLID 600 MG TABLET PO SCH (08:04)
[2019-08-19] MEDS: ASCORBIC ACID 500 MG TABLET PO SCH (08:04)
[2019-08-19] MEDS: CARVEDILOL 3.125 MG TABLET. PO SCH (08:05)
--- NOTE | 2019-08-19 09:38 | PDOC ---
ORTHO PROGRESS NOTES Subjective No change in his symptoms. Vitals Vital Signs Date Time Temp Pulse Resp B/P (MAP) Pulse Ox O2 Delivery O2 Flow Rate FiO2 08/19/19 08:05 67 123/54 08/19/19 07:00 97.8 18 96 Room Air 97.8 Labs Laboratory Tests Test 08/17/19 13:29 08/17/19 16:40 08/17/19 17:20 08/17/19 20:20 White Blood Count 17.8 x10^3/uL (4.0-11.0) Red Blood Count 3.61 x10^6/uL (4.30-5.70) Hemoglobin 11.3 g/dL (13.0-17.5) Hematocrit 32.8 % (39.0-53.0) Mean Corpuscular Volume 91 fL (79-100) Mean Corpuscular Hemoglobin 31 pg (25-35) Mean Corpuscular Hemoglobin Concent 34 g/dL (31-37) Red Cell Distribution Width 14.5 % (11.5-14.5) Platelet Count 189 x10^3/uL (140-400) Neutrophils (%) (Auto) 90 % (31-73) Lymphocytes (%) (Auto) 5 % (24-48) Monocytes (%) (Auto) 5 % (0-9) Eosinophils (%) (Auto) 0 % (0-3) Basophils (%) (Auto) 0 % (0-3) Neutrophils # (Auto) 15.9 x10^3/uL (1.8-7.7) Lymphocytes # (Auto) 0.9 x10^3/uL (1.0-4.8) Monocytes # (Auto) 0.9 x10^3/uL (0.0-1.1) Eosinophils # (Auto) 0.0 x10^3/uL (0.0-0.7) Basophils # (Auto) 0.0 x10^3/uL (0.0-0.2) Segmented Neutrophils % 86 % (35-66) Band Neutrophils % 8 % (0-9) Lymphocytes % 2 % (24-48) Monocytes % 4 % (0-10) Platelet Estimate Adequate (ADEQUATE) Sodium Level 140 mmol/L (136-145) Potassium Level 5.1 mmol/L (3.5-5.1) Chloride Level 104 mmol/L (98-107) Carbon Dioxide Level 25 mmol/L (21-32) Anion Gap 11 (6-14) Blood Urea Nitrogen 31 mg/dL (8-26) Creatinine 2.2 mg/dL (0.7-1.3) Estimated GFR (Cockcroft-Gault) 34.9 Glucose Level 156 mg/dL (70-99) Lactic Acid Level 2.2 mmol/L (0.4-2.0) 1.1 mmol/L (0.4-2.0) Calcium Level 8.3 mg/dL (8.5-10.1) Coronavirus (COVID-19)(PCR) Negative (NEGATIVE) Glucose (Fingerstick) 111 mg/dL (70-99) Test 08/18/19 01:07 08/18/19 07:30 08/18/19 07:47 08/18/19 10:42 Heparin Anti-Xa Act, Unfractionated > 1.10 IU/mL (0.30-0.70) > 1.10 IU/mL (0.30-0.70) Sodium Level 142 mmol/L (136-145) Potassium Level 4.2 mmol/L (3.5-5.1) Chloride Level 106 mmol/L (98-107) Carbon Dioxide Level 24 mmol/L (21-32) Anion Gap 12 (6-14) Blood Urea Nitrogen 27 mg/dL (8-26) Creatinine 1.9 mg/dL (0.7-1.3) Estimated GFR (Cockcroft-Gault) 41.4 Glucose Level 119 mg/dL (70-99) Calcium Level 8.0 mg/dL (8.5-10.1) Phosphorus Level 3.8 mg/dL (2.6-4.7) Albumin 2.6 g/dL (3.4-5.0) Glucose (Fingerstick) 110 mg/dL (70-99) 153 mg/dL (70-99) Test 08/18/19 15:50 08/18/19 16:54 08/18/19 20:37 08/18/19 21:30 Activated Partial Thromboplast Time > 150 SEC (24-38) Glucose (Fingerstick) 124 mg/dL (70-99) 157 mg/dL (70-99) Urine Collection Type Unknown Urine Color Yellow Urine Clarity Clear Urine pH 6.5 (<5.0-8.0) Urine Specific [employer] 1.015 (1.000-1.030) Urine Protein Negative mg/dL (NEG-TRACE) Urine Glucose (UA) Negative mg/dL (NEG) Urine Ketones (Stick) Negative mg/dL (NEG) Urine Blood Negative (NEG) Urine Nitrite Negative (NEG) Urine Bilirubin Negative (NEG) Urine Urobilinogen Dipstick 1.0 mg/dL (0.2 mg/dL) Urine Leukocyte Esterase Negative (NEG) Urine RBC 0 /HPF (0-2) Urine WBC 0 /HPF (0-4) Urine Squamous Epithelial Cells Occ /LPF Urine Bacteria /HPF (0-FEW) Test 08/19/19 00:35 08/19/19 02:00 08/19/19 07:56 Activated Partial Thromboplast Time 66 SEC (24-38) White Blood Count 9.1 x10^3/uL (4.0-11.0) Red Blood Count 3.27 x10^6/uL (4.30-5.70) Hemoglobin 10.1 g/dL (13.0-17.5) Hematocrit 29.7 % (39.0-53.0) Mean Corpuscular Volume 91 fL (79-100) Mean Corpuscular Hemoglobin 31 pg (25-35) Mean Corpuscular Hemoglobin Concent 34 g/dL (31-37) Red Cell Distribution Width 14.2 % (11.5-14.5) Platelet Count 171 x10^3/uL (140-400) Neutrophils (%) (Auto) 67 % (31-73) Lymphocytes (%) (Auto) 17 % (24-48) Monocytes (%) (Auto) 9 % (0-9) Eosinophils (%) (Auto) 7 % (0-3) Basophils (%) (Auto) 1 % (0-3) Neutrophils # (Auto) 6.1 x10^3/uL (1.8-7.7) Lymphocytes # (Auto) 1.6 x10^3/uL (1.0-4.8) Monocytes # (Auto) 0.8 x10^3/uL (0.0-1.1) Eosinophils # (Auto) 0.6 x10^3/uL (0.0-0.7) Basophils # (Auto) 0.1 x10^3/uL (0.0-0.2) Sodium Level 138 mmol/L (136-145) Potassium Level 4.1 mmol/L (3.5-5.1) Chloride Level 104 mmol/L (98-107) Carbon Dioxide Level 25 mmol/L (21-32) Anion Gap 9 (6-14) Blood Urea Nitrogen 28 mg/dL (8-26) Creatinine 2.0 mg/dL (0.7-1.3) Estimated GFR (Cockcroft-Gault) 39.0 Glucose Level 163 mg/dL (70-99) Calcium Level 8.1 mg/dL (8.5-10.1) Glucose (Fingerstick) 118 mg/dL (70-99) Laboratory Tests Test 08/18/19 10:42 08/18/19 15:50 08/18/19 16:54 08/18/19 20:37 Glucose (Fingerstick) 153 mg/dL (70-99) 124 mg/dL (70-99) 157 mg/dL (70-99) Activated Partial Thromboplast Time > 150 SEC (24-38) Test 08/18/19 21:30 08/19/19 00:35 08/19/19 02:00 08/19/19 07:56 Urine Collection Type Unknown Urine Color Yellow Urine Clarity Clear Urine pH 6.5 (<5.0-8.0) Urine Specific [employer] 1.015 (1.000-1.030) Urine Protein Negative mg/dL (NEG-TRACE) Urine Glucose (UA) Negative mg/dL (NEG) Urine Ketones (Stick) Negative mg/dL (NEG) Urine Blood Negative (NEG) Urine Nitrite Negative (NEG) Urine Bilirubin Negative (NEG) Urine Urobilinogen Dipstick 1.0 mg/dL (0.2 mg/dL) Urine Leukocyte Esterase Negative (NEG) Urine RBC 0 /HPF (0-2) Urine WBC 0 /HPF (0-4) Urine Squamous Epithelial Cells Occ /LPF Urine Bacteria /HPF (0-FEW) Activated Partial Thromboplast Time 66 SEC (24-38) White Blood Count 9.1 x10^3/uL (4.0-11.0) Red Blood Count 3.27 x10^6/uL (4.30-5.70) Hemoglobin 10.1 g/dL (13.0-17.5) Hematocrit 29.7 % (39.0-53.0) Mean Corpuscular Volume 91 fL (79-100) Mean Corpuscular Hemoglobin 31 pg (25-35) Mean Corpuscular Hemoglobin Concent 34 g/dL (31-37) Red Cell Distribution Width 14.2 % (11.5-14.5) Platelet Count 171 x10^3/uL (140-400) Neutrophils (%) (Auto) 67 % (31-73) Lymphocytes (%) (Auto) 17 % (24-48) Monocytes (%) (Auto) 9 % (0-9) Eosinophils (%) (Auto) 7 % (0-3) Basophils (%) (Auto) 1 % (0-3) Neutrophils # (Auto) 6.1 x10^3/uL (1.8-7.7) Lymphocytes # (Auto) 1.6 x10^3/uL (1.0-4.8) Monocytes # (Auto) 0.8 x10^3/uL (0.0-1.1) Eosinophils # (Auto) 0.6 x10^3/uL (0.0-0.7) Basophils # (Auto) 0.1 x10^3/uL (0.0-0.2) Sodium Level 138 mmol/L (136-145) Potassium Level 4.1 mmol/L (3.5-5.1) Chloride Level 104 mmol/L (98-107) Carbon Dioxide Level 25 mmol/L (21-32) Anion Gap 9 (6-14) Blood Urea Nitrogen 28 mg/dL (8-26) Creatinine 2.0 mg/dL (0.7-1.3) Estimated GFR (Cockcroft-Gault) 39.0 Glucose Level 163 mg/dL (70-99) Calcium Level 8.1 mg/dL (8.5-10.1) Glucose (Fingerstick) 118 mg/dL (70-99) Notes He is awake and alert in bed. Examination of his right lower extremity reveals the appearance of the wound is unchanged. No erythema fluctuance or drainage Assessment and Plan I reviewed the vascular surgery note Today, using a rondure, I debrided the callosity around the foot wound as well as removed necrotic tissue at the base of the wound. The wound is superficial. There was granulation tissue at the base and bleeding present. I recommend local wound care and offloading. Patient can follow-up with me in clinic or [facility] with [facility]. CHRISTIANO BAXTER II, MD Aug 19, 2019 09:38
[2019-08-19] MEDS: GABAPENTIN 100 MG CAPSULE. PO SCH (10:02)
--- NOTE | 2019-08-19 10:03 | PDOC ---
Infectious Disease Note Subjective Subjective Doing well. No F/C/S/N/V/D/SOA/rash or pain ROS ROS o/w neg Vital Sign Vital Signs Vital Signs Date Time Temp Pulse Resp B/P (MAP) Pulse Ox O2 Delivery O2 Flow Rate FiO2 08/19/19 08:05 67 123/54 08/19/19 07:00 97.8 18 96 Room Air 97.8 Physical Exam PHYSICAL EXAM CONSTITUTIONAL: He is sitting upright in bed. He is pleasant, cooperative. He is in no acute distress. HEENT: Pupils are equal and reactive. He has normal conjunctivae. Oral cavity, pharynx was clear. NECK: Supple, without JVD. LUNGS: Decreased in the bases. HEART: S1, S2. ABDOMEN: Soft, nontender, nondistended with positive bowel sounds. EXTREMITIES: Without clubbing, cyanosis. His right plantar area below his great toe is clean It is nontender. He does have a palpable pulse. SKIN: Warm to touch without signs of rash. NEUROLOGIC: He is nonfocal, answers questions, very pleasant, moves all extremities. PSYCHIATRIC: Affect is appropriate Labs Lab Laboratory Tests Test 08/18/19 10:42 08/18/19 15:50 08/18/19 16:54 08/18/19 20:37 Glucose (Fingerstick) 153 mg/dL (70-99) 124 mg/dL (70-99) 157 mg/dL (70-99) Activated Partial Thromboplast Time > 150 SEC (24-38) Test 08/18/19 21:30 08/19/19 00:35 08/19/19 02:00 08/19/19 07:56 Urine Collection Type Unknown Urine Color Yellow Urine Clarity Clear Urine pH 6.5 (<5.0-8.0) Urine Specific [employer] 1.015 (1.000-1.030) Urine Protein Negative mg/dL (NEG-TRACE) Urine Glucose (UA) Negative mg/dL (NEG) Urine Ketones (Stick) Negative mg/dL (NEG) Urine Blood Negative (NEG) Urine Nitrite Negative (NEG) Urine Bilirubin Negative (NEG) Urine Urobilinogen Dipstick 1.0 mg/dL (0.2 mg/dL) Urine Leukocyte Esterase Negative (NEG) Urine RBC 0 /HPF (0-2) Urine WBC 0 /HPF (0-4) Urine Squamous Epithelial Cells Occ /LPF Urine Bacteria /HPF (0-FEW) Activated Partial Thromboplast Time 66 SEC (24-38) White Blood Count 9.1 x10^3/uL (4.0-11.0) Red Blood Count 3.27 x10^6/uL (4.30-5.70) Hemoglobin 10.1 g/dL (13.0-17.5) Hematocrit 29.7 % (39.0-53.0) Mean Corpuscular Volume 91 fL (79-100) Mean Corpuscular Hemoglobin 31 pg (25-35) Mean Corpuscular Hemoglobin Concent 34 g/dL (31-37) Red Cell Distribution Width 14.2 % (11.5-14.5) Platelet Count 171 x10^3/uL (140-400) Neutrophils (%) (Auto) 67 % (31-73) Lymphocytes (%) (Auto) 17 % (24-48) Monocytes (%) (Auto) 9 % (0-9) Eosinophils (%) (Auto) 7 % (0-3) Basophils (%) (Auto) 1 % (0-3) Neutrophils # (Auto) 6.1 x10^3/uL (1.8-7.7) Lymphocytes # (Auto) 1.6 x10^3/uL (1.0-4.8) Monocytes # (Auto) 0.8 x10^3/uL (0.0-1.1) Eosinophils # (Auto) 0.6 x10^3/uL (0.0-0.7) Basophils # (Auto) 0.1 x10^3/uL (0.0-0.2) Sodium Level 138 mmol/L (136-145) Potassium Level 4.1 mmol/L (3.5-5.1) Chloride Level 104 mmol/L (98-107) Carbon Dioxide Level 25 mmol/L (21-32) Anion Gap 9 (6-14) Blood Urea Nitrogen 28 mg/dL (8-26) Creatinine 2.0 mg/dL (0.7-1.3) Estimated GFR (Cockcroft-Gault) 39.0 Glucose Level 163 mg/dL (70-99) Calcium Level 8.1 mg/dL (8.5-10.1) Glucose (Fingerstick) 118 mg/dL (70-99) Test 08/19/19 08:45 Activated Partial Thromboplast Time 86 SEC (24-38) Objective Assessment Right great toe plantar foot wound/callous - gas on XRAY likely secondary to open wound -s/p I and D today - superficial per Dr. Calderón - debrided the callosity around the foot wound as well as removed necrotic tissue at the base of the wound. The wound is superficial. There was granulation tissue at the base and bleeding present. I recommend local wound care and offloading Leukocytosis - better CKD - stable DM Plan Plan of Care D/c Zosyn/zyvox po Augmentin for 6 days ID to sign off D/w nursing STACI VAZQUEZ MD Aug 19, 2019 10:03
[2019-08-19 11:00] VITALS: BP 148/60
--- NOTE | 2019-08-19 12:18 | PDOC ---
SUBJECTIVE ROS Follow-up for acute plus chronic kidney disease Patient denies any new complaints today. No difficulty urinating by his reports CVS: no Orthopnea, no CP RESP: no SOB, no PEREIRA GI: no Nausea, no Vomiting : no Dysuria, no Urgency OBJECTIVE Vital Signs Vital Signs Date Time Temp Pulse Resp B/P (MAP) Pulse Ox O2 Delivery O2 Flow Rate FiO2 08/19/19 08:05 67 123/54 08/19/19 07:00 97.8 18 96 Room Air 97.8 I & 0 Intake and Output 08/19/19 07:00 Intake Total 380 ml Output Total 1450 ml Balance -1070 ml Intake Oral 330 ml IV Total 50 ml Output Urine Total 1450 ml # Voids 3 PHYSICAL EXAM Physical Exam GEN: Awake, Oriented x 3, In no distress EYES: Vision Unchanged, Conjunctiva Normal EN: No EN Drainage, Mucous Membranes moist NECK: no JVD, no JVP, Supple, no Thyromegaly CVS: S1S2, soft Murmur, No Gallop, No Rub,no Edema RESP: no Rales, no Rhonchi,no Acc. Muscle Use GI: BS + ve, NO Bruit, Non Tender, Non Distended : no CVA tenderness, no Suprapubic Tenderness DIAGNOSIS/ASSESSMENT Assessment & Plan EMERALD- Vasomotor + possible association with ongoing infection. UA appears to be clear. Continue to watch trend once infection resolves CKD 3 Baseline Cr 2.0 in 2019 at [facility] and notably has EGFR 43-44 per [facility] HypoCalcemia- Ca Midly low but corrects for low albumin. Continue vitamin D diabetic infected ulcer plus PVD: Now status post debridement: Defer antibiotics to ID. HTN -On Lisinopril and Lasix at Home. Continue same for now COMMENT/RELEVANT DATA Meds Current Medications Medications (Trade) Dose Ordered Sig/Eugenio Start Time Stop Time Status Last Admin Dose Admin Allopurinol (Zyloprim) 100 mg DAILY 08/18/19 09:00 08/18/19 20:40 DC 08/18/19 09:01 100 MG Amoxicillin/ Clavulanate Potassium (Augmentin 500/ 125mg) 1 tab BID 08/19/19 21:00 Ascorbic Acid (Vitamin C) 500 mg DAILY 08/18/19 09:00 08/19/19 08:04 500 MG Carvedilol (Coreg) 3.125 mg BIDWMEALS 08/18/19 08:00 08/19/19 08:05 3.125 MG Dextrose (Dextrose 50%-Water Syringe) 12.5 gm PRN Q15MIN PRN 08/17/19 17:45 Gabapentin (Neurontin) 100 mg QID 08/17/19 21:00 08/19/19 10:02 100 MG Heparin Sodium (Porcine) (Heparin Sodium) 3,000 unit PRN Q6HRS PRN 08/18/19 13:00 Heparin Sodium/ Dextrose 250 ml @ 0 mls/hr CONT PRN 08/18/19 13:00 Info (Anti-Coagulation Monitoring By Pharmacy) 1 each PRN DAILY PRN 08/18/19 12:45 08/18/19 12:46 1 EACH Insulin Glargine (Lantus Syringe) 30 unit QHS 08/18/19 21:30 08/18/19 21:39 30 UNIT Insulin Human Lispro (HumaLOG) 0-7 UNITS TIDACHC 08/17/19 21:00 08/18/19 21:39 3 UNITS Lactobacillus Rhamnosus (Culturelle) 1 cap BID 08/18/19 21:00 08/19/19 08:04 1 CAP Linezolid (Zyvox) 600 mg BID 08/18/19 10:45 08/19/19 10:36 DC 08/19/19 08:04 600 MG Ondansetron HCl (Zofran) 4 mg PRN Q6HRS PRN 08/18/19 21:00 Piperacillin Sod/ Tazobactam Sod (Zosyn Per Pharmacy) 1 each PRN DAILY PRN 08/17/19 17:45 Piperacillin Sod/ Tazobactam Sod 2.25 gm/Sodium Chloride 50 ml @ 100 mls/hr Q6HRS 08/17/19 23:00 08/19/19 10:36 DC 08/19/19 05:53 100 MLS/HR Piperacillin Sod/ Tazobactam Sod 3.375 gm/Sodium Chloride 50 ml @ 100 mls/hr 1X ONCE 08/17/19 15:30 08/17/19 15:59 DC 08/17/19 16:17 100 MLS/HR Simvastatin (Zocor) 40 mg QHS 08/17/19 21:00 08/18/19 21:36 40 MG Sodium Chloride 1,000 ml @ 60 mls/hr [id number] 08/18/19 20:45 08/18/19 21:07 60 MLS/HR Vancomycin HCl 2 gm/Sodium Chloride 500 ml @ 250 mls/hr 1X ONCE 08/17/19 18:00 08/17/19 19:59 DC 08/17/19 22:15 250 MLS/HR Vitamin D (Vitamin D3) 2,000 unit DAILY 08/18/19 09:00 08/19/19 08:04 2,000 UNIT Lab Laboratory Tests Test 08/18/19 15:50 08/18/19 16:54 08/18/19 20:37 08/18/19 21:30 Activated Partial Thromboplast Time > 150 SEC (24-38) Glucose (Fingerstick) 124 mg/dL (70-99) 157 mg/dL (70-99) Urine Collection Type Unknown Urine Color Yellow Urine Clarity Clear Urine pH 6.5 (<5.0-8.0) Urine Specific [place] 1.015 (1.000-1.030) Urine Protein Negative mg/dL (NEG-TRACE) Urine Glucose (UA) Negative mg/dL (NEG) Urine Ketones (Stick) Negative mg/dL (NEG) Urine Blood Negative (NEG) Urine Nitrite Negative (NEG) Urine Bilirubin Negative (NEG) Urine Urobilinogen Dipstick 1.0 mg/dL (0.2 mg/dL) Urine Leukocyte Esterase Negative (NEG) Urine RBC 0 /HPF (0-2) Urine WBC 0 /HPF (0-4) Urine Squamous Epithelial Cells Occ /LPF Urine Bacteria /HPF (0-FEW) Test 08/19/19 00:35 08/19/19 02:00 08/19/19 07:56 08/19/19 08:45 Activated Partial Thromboplast Time 66 SEC (24-38) 86 SEC (24-38) White Blood Count 9.1 x10^3/uL (4.0-11.0) Red Blood Count 3.27 x10^6/uL (4.30-5.70) Hemoglobin 10.1 g/dL (13.0-17.5) Hematocrit 29.7 % (39.0-53.0) Mean Corpuscular Volume 91 fL (79-100) Mean Corpuscular Hemoglobin 31 pg (25-35) Mean Corpuscular Hemoglobin Concent 34 g/dL (31-37) Red Cell Distribution Width 14.2 % (11.5-14.5) Platelet Count 171 x10^3/uL (140-400) Neutrophils (%) (Auto) 67 % (31-73) Lymphocytes (%) (Auto) 17 % (24-48) Monocytes (%) (Auto) 9 % (0-9) Eosinophils (%) (Auto) 7 % (0-3) Basophils (%) (Auto) 1 % (0-3) Neutrophils # (Auto) 6.1 x10^3/uL (1.8-7.7) Lymphocytes # (Auto) 1.6 x10^3/uL (1.0-4.8) Monocytes # (Auto) 0.8 x10^3/uL (0.0-1.1) Eosinophils # (Auto) 0.6 x10^3/uL (0.0-0.7) Basophils # (Auto) 0.1 x10^3/uL (0.0-0.2) Sodium Level 138 mmol/L (136-145) Potassium Level 4.1 mmol/L (3.5-5.1) Chloride Level 104 mmol/L (98-107) Carbon Dioxide Level 25 mmol/L (21-32) Anion Gap 9 (6-14) Blood Urea Nitrogen 28 mg/dL (8-26) Creatinine 2.0 mg/dL (0.7-1.3) Estimated GFR (Cockcroft-Gault) 39.0 Glucose Level 163 mg/dL (70-99) Calcium Level 8.1 mg/dL (8.5-10.1) Glucose (Fingerstick) 118 mg/dL (70-99) Results All relevant outside records, renal labs, imaging studies, telemetry/EKG's were reviewed. Justicifation of Admission Dx: Justifications for Admission: Justification of Admission Dx: Yes Sepsis: Infection MOY AUSTIN MD Aug 19, 2019 12:18
[2019-08-19] MEDS ORDERED: AMOX1TAB10 PO (12:25)
--- NOTE | 2019-08-19 12:32 | PDOC ---
GENERAL General: Discharge summary [id number] VITAL SIGNS Vital Signs/I&O: Vital Signs Date Time Temp Pulse Resp B/P (MAP) Pulse Ox O2 Delivery O2 Flow Rate FiO2 08/19/19 08:05 67 123/54 08/19/19 07:00 97.8 18 96 Room Air 97.8 I & O 08/18/19 08/18/19 08/19/19 15:00 23:00 07:00 Intake Total 230 ml 150 ml Output Total 200 ml 550 ml 700 ml Balance -200 ml -320 ml -550 ml ALLERGIES Allergies: Allergies Coded Allergies Type Severity Reaction Last Updated Verified rosiglitazone Allergy Intermediate 01/10/19 Yes MEDS Medications: Current Medications Medications (Trade) Dose Ordered Sig/Eugenio Route PRN Reason Start Time Stop Time Status Last Admin Dose Admin Info (Anti-Coagulation Monitoring By Pharmacy) 1 each PRN DAILY PRN MC SEE COMMENTS 08/18/19 12:45 08/18/19 12:46 Heparin Sodium (Porcine) (Heparin Sodium) 1,000 unit PRN Q6HRS PRN IV FOR PTT 59 - 78 08/18/19 13:00 08/19/19 02:45 Lactobacillus Rhamnosus (Culturelle) 1 cap BID PO 08/18/19 21:00 08/19/19 08:04 Sodium Chloride 1,000 ml @ 60 mls/hr [id number] IV 08/18/19 20:45 08/18/19 21:07 Insulin Glargine (Lantus Syringe) 30 unit QHS SQ 08/18/19 21:30 08/18/19 21:39 LAB Lab: Laboratory Tests Test 08/18/19 15:50 08/18/19 16:54 08/18/19 20:37 08/18/19 21:30 Activated Partial Thromboplast Time > 150 SEC (24-38) *H Glucose (Fingerstick) 124 mg/dL (70-99) H 157 mg/dL (70-99) H Urine Collection Type Unknown Urine Color Yellow Urine Clarity Clear Urine pH 6.5 (<5.0-8.0) Urine Specific [place] 1.015 (1.000-1.030) Urine Protein Negative mg/dL (NEG-TRACE) Urine Glucose (UA) Negative mg/dL (NEG) Urine Ketones (Stick) Negative mg/dL (NEG) Urine Blood Negative (NEG) Urine Nitrite Negative (NEG) Urine Bilirubin Negative (NEG) Urine Urobilinogen Dipstick 1.0 mg/dL (0.2 mg/dL) Urine Leukocyte Esterase Negative (NEG) Urine RBC 0 /HPF (0-2) Urine WBC 0 /HPF (0-4) Urine Squamous Epithelial Cells Occ /LPF Urine Bacteria /HPF (0-FEW) Test 08/19/19 00:35 08/19/19 02:00 08/19/19 07:56 08/19/19 08:45 Activated Partial Thromboplast Time 66 SEC (24-38) H 86 SEC (24-38) H White Blood Count 9.1 x10^3/uL (4.0-11.0) Red Blood Count 3.27 x10^6/uL (4.30-5.70) L Hemoglobin 10.1 g/dL (13.0-17.5) L Hematocrit 29.7 % (39.0-53.0) L Mean Corpuscular Volume 91 fL (79-100) Mean Corpuscular Hemoglobin 31 pg (25-35) Mean Corpuscular Hemoglobin Concent 34 g/dL (31-37) Red Cell Distribution Width 14.2 % (11.5-14.5) Platelet Count 171 x10^3/uL (140-400) Neutrophils (%) (Auto) 67 % (31-73) Lymphocytes (%) (Auto) 17 % (24-48) L Monocytes (%) (Auto) 9 % (0-9) Eosinophils (%) (Auto) 7 % (0-3) H Basophils (%) (Auto) 1 % (0-3) Neutrophils # (Auto) 6.1 x10^3/uL (1.8-7.7) Lymphocytes # (Auto) 1.6 x10^3/uL (1.0-4.8) Monocytes # (Auto) 0.8 x10^3/uL (0.0-1.1) Eosinophils # (Auto) 0.6 x10^3/uL (0.0-0.7) Basophils # (Auto) 0.1 x10^3/uL (0.0-0.2) Sodium Level 138 mmol/L (136-145) Potassium Level 4.1 mmol/L (3.5-5.1) Chloride Level 104 mmol/L (98-107) Carbon Dioxide Level 25 mmol/L (21-32) Anion Gap 9 (6-14) Blood Urea Nitrogen 28 mg/dL (8-26) H Creatinine 2.0 mg/dL (0.7-1.3) H Estimated GFR (Cockcroft-Gault) 39.0 Glucose Level 163 mg/dL (70-99) H Calcium Level 8.1 mg/dL (8.5-10.1) L Glucose (Fingerstick) 118 mg/dL (70-99) H Laboratory Tests 08/19/19 02:00 Laboratory Tests 08/19/19 02:00 Justicifation of Admission Dx: Justifications for Admission: Justification of Admission Dx: Yes Sepsis: Infection EDI CORNEJO MD Aug 19, 2019 12:32
--- NOTE | 2019-08-19 12:53 | DS ---
DATE OF DISCHARGE: 08/19/2019 HOSPITAL COURSE: This patient is a dorota 83-year-old man who is a continuity outpatient of Dr. Lili Vasquez at the [facility]. He also follows with the wound team there for a chronic nonhealing right foot ulcer. The patient has a number of underlying chronic medical issues that predispose him to complications and he was admitted for surgical evaluation of that wound 3 days ago. He was seen here by Infectious Diseases, Nephrology, and Orthopedic Surgery as well as Vascular Surgery. Their assistance is appreciated. Vascular Surgery did not feel that his peripheral vascular disease was amenable to any intervention other than continued medical management. Orthopedic Surgery performed a bedside debridement of his wound this morning and recommended close outpatient followup with wound care. The patient is eager for discharge and tells me he lives with his son who is very supportive. Recommendation is for offloading as well as close Wound Care Center follow up. PHYSICAL EXAMINATION: VITAL SIGNS: Today is notable for that the patient has been afebrile, blood pressure has been in the 120s to 150s/60, heart rate is in the 60s-70s and regular. He is breathing comfortably and saturating 93-96% on room air. GENERAL: He is a pleasant 83-year-old man who appears stated age, in no acute distress. HEENT: Unremarkable. CHEST: Clear to auscultation. HEART: S1, S2 normal. Regular rate and rhythm. No murmurs or gallops are noted. ABDOMEN: Soft, nontender, nondistended. No masses or organomegaly noted. EXTREMITIES: Notable reported that his right foot wound is bandaged with dry, clean dressings. Greater than 30 minutes were spent in coordinating this discharge with greater than 50% in counseling and coordination of care and most of which in discussion with the patient and nursing. FINAL DIAGNOSES: 1. Nonhealing right foot ulcer, status post bedside debridement and evaluation by Infectious Diseases and Vascular Surgery. Plan is for another outpatient course of antibiotics with Augmentin 500 mg twice daily for 7 days. 2. Chronic morbidity. Otherwise, as outlined in the history and physical. EDI CORNEJO MD DR: WANDA/willa JOB#: [id number] / [id number] LILI Rocha MD
[2019-08-19] MEDS: ANTI-COAG MONITOR BY PHARMACY. MC PRN (15:01)
--- NOTE | 2019-08-19 16:23 | NUR ---
Discharge Note: RAMESH PARRY J4 ALPHA Discharge instructions and discharge home medications reviewed with Patient and a copy given. All questions have been answered and understanding verbalized. The following instructions and handouts were given: ulcers skin Discontinued lines and drains: Peripheral IV intact. Patient discharged to Home w/services with Family Member via Wheelchair
[2019-08-19] MEDS ORDERED: AMOXICILLIN/K CLAV 500/125MG TABLET. PO SCH (21:00)
== END 2019-08-19 16:24 | disposition home health service (06) | DRG 853 ==
LOC: ER 11:48 → ED HOLD 15:20 → 4 NORTH 16:46
PROVIDERS: ADMIT Internal Medicine; ATTEND Internal Medicine
PROC: 0JBQ0ZZ Excision of Right Foot Subcutaneous Tissue and Fascia, Open Approach (ICD-10-PCS; principal; 2019-08-19)
DX: A41.9 Sepsis, unspecified organism (principal); N17.0 Acute kidney failure with tubular necrosis; L97.518 Non-pressure chronic ulcer of other part of right foot with other specified severity; E11.51 Type 2 diabetes mellitus with diabetic peripheral angiopathy without gangrene; E78.5 Hyperlipidemia, unspecified; J44.9 Chronic obstructive pulmonary disease, unspecified; K21.9 Gastro-esophageal reflux disease without esophagitis; M19.90 Unspecified osteoarthritis, unspecified site; E11.22 Type 2 diabetes mellitus with diabetic chronic kidney disease; I12.9 Hypertensive chronic kidney disease with stage 1 through stage 4 chronic kidney disease, or unspecified chronic kidney disease; N18.9 Chronic kidney disease, unspecified; N40.0 Benign prostatic hyperplasia without lower urinary tract symptoms; E11.42 Type 2 diabetes mellitus with diabetic polyneuropathy; E11.621 Type 2 diabetes mellitus with foot ulcer; N18.3 Chronic kidney disease, stage 3 (moderate); E83.51 Hypocalcemia; Z20.828 Contact with and (suspected) exposure to other viral communicable diseases; Z87.891 Personal history of nicotine dependence; Z86.711 Personal history of pulmonary embolism; Z86.718 Personal history of other venous thrombosis and embolism; Z88.8 Allergy status to other drugs, medicaments and biological substances; Z83.3 Family history of diabetes mellitus; Z82.49 Family history of ischemic heart disease and other diseases of the circulatory system
CPT/HCPCS: 36415; 73630; 80048; 80069; 81001; 82962; 83605; 85007; 85025; 85520; 85730; 93925; 93971; 96365; 96367; 96375; 99285; J1644; J1815; J2543; J3370; J7030; J7040; G0378; U0003-CS